=== PATIENT | male | born 1970 | race Caucasian/White ===

== ENCOUNTER → 2021-08-02 15:49 | Outpatient (BNVA) | payer OTHER, SELFPAY | PROVIDERS: Visit Provider Nurse Practitioner Family | DX: Z12.5 Encounter for screening for malignant neoplasm of prostate (principal); R53.83 Other fatigue; Z13.6 Encounter for screening for cardiovascular disorders; G47.10 Hypersomnia, unspecified | CPT/HCPCS: 80053; 80061; 84443; 85025; G0103 ==

== ENCOUNTER → 2021-08-23 16:01 | Outpatient (BNVA) | payer OTHER, SELFPAY | PROVIDERS: PCP Nurse Practitioner Family; Visit Provider Nurse Practitioner Family | DX: R74.8 Abnormal levels of other serum enzymes (principal); M25.561 Pain in right knee; M25.562 Pain in left knee; R42 Dizziness and giddiness | CPT/HCPCS: 80053 ==

== ENCOUNTER 2021-10-25 08:01 | Outpatient (CLI) | payer OTHER, SELFPAY ==
--- NOTE | 2021-10-25 08:18 | XRR_ITS ---
PROCEDURE INFORMATION: Exam: XR Lumbosacral Spine Exam date and time: 10/25/2021 8:35 AM Age: 51 years old Clinical indication: Low back pain; Additional info: M54.50 - low back pain, unspecified TECHNIQUE: Imaging protocol: XR of the lumbosacral spine. Views: 2 or 3 views. Total images: 3 COMPARISON: No relevant prior studies available. FINDINGS: Bones/joints: L4-S1 Facet joint degenerative changes are present. L4-L5 Degenerative spondylolisthesis (grade 1) is seen with disc space height loss and degenerative changes in the facet joints. Disc degeneration is most notable at L5/S1. Soft tissues: Unremarkable. XR/XR lumbar spine 2-3V* [id number] IMPRESSION: Degenerative changes as described above but no acute pathology detected.
--- NOTE | 2021-10-25 08:18 | XRR_ITS ---
PROCEDURE INFORMATION: Exam: XR Right Knee Exam date and time: 10/25/2021 8:35 AM Age: 51 years old Clinical indication: Bilateral; Patient HX: --chronic pain in lower back and both knees; Additional info: M25.561 - pain in right knee TECHNIQUE: Imaging protocol: XR Right knee. Views: 3 views. Total images: 3 COMPARISON: No relevant prior studies available. FINDINGS: Bones/joints: Mild marginal osteophytes are noted. No acute fracture nor subluxation. No osseous erosion nor periosteal reaction. Soft tissues: Normal. XR/XR knee RT 3V* [id number] IMPRESSION: 1. Mild marginal osteophytes are noted. 2. No acute osseous pathology.
--- NOTE | 2021-10-25 08:18 | XRR_ITS ---
PROCEDURE INFORMATION: Exam: XR Left Knee Exam date and time: 10/25/2021 8:35 AM Age: 51 years old Clinical indication: Bilateral; Patient HX: --chronic pain in lower back and both knees; Additional info: M25.561 - pain in right knee TECHNIQUE: Imaging protocol: XR Left knee. Views: 3 views. Total images: 3 COMPARISON: No relevant prior studies available. FINDINGS: Bones/joints: Mild marginal osteophytes are noted. No acute fracture nor subluxation. No osseous erosion nor periosteal reaction. Soft tissues: Normal. XR/XR knee LT 3V* [id number] IMPRESSION: 1. Mild marginal osteophytes are noted. 2. No acute osseous pathology.
== END 2021-10-25 08:02 | disposition home or self-care (01) ==
LOC: RAD 08:05
PROVIDERS: PCP Nurse Practitioner Family; Visit Provider Nurse Practitioner Family
DX: M54.50 Low back pain, unspecified (principal); M25.561 Pain in right knee; M25.562 Pain in left knee; M43.07 Spondylolysis, lumbosacral region; M25.762 Osteophyte, left knee; M25.761 Osteophyte, right knee
CPT/HCPCS: 72100; 73562

== ENCOUNTER 2022-03-06 12:12 | Outpatient (CLI) | payer OTHER, SELFPAY ==
--- NOTE | 2022-03-06 12:45 | USCV_ITS ---
Mariano Lazaro Age: 51 Gender: M : 1970 Exam Date: 03/06/2022 12:30 Ordering Phys: Mitchel Trinidad MD ([email or web address]) Technologist: Jarrell Aaron [place] [facility] [place]: bradycardia, abnormal ekg BP: 142 / 94 HR: 60 Rhythm: Sinus Technical Quality: Adequate MEASUREMENTS (Male / Female) Normal Values 2D ECHO LV Diastolic Diameter PLAX 5.3 cm 4.2 - 5.9 / 3.9 - 5.3 cm LV Systolic Diameter PLAX 3.3 cm IVS Diastolic Thickness 0.9 cm 0.6 - 1.0 / 0.6 - 0.9 cm IVS Systolic Thickness 1.4 cm LVPW Diastolic Thickness 0.8 cm 0.6 - 1.0 / 0.6 - 0.9 cm LVPW Systolic Thickness 2.1 cm LVOT Diameter 2.8 cm LV Ejection Fraction 2D Teich 67.0 % LV Ejection Fraction MOD 2C 62.0 % LV Ejection Fraction 2C AL 62.9 % LA Diameter 3.7 cm LA Width 3.0 cm LA Height 4.8 cm RA Width 3.2 cm RA Height 4.2 cm Aorta at Sinotubular Diameter 3.3 cm M-MODE Aortic Annulus Diameter 3.8 cm LA Ao Ratio MM 1.0 MV E Point Septal Separation 0.5 cm DOPPLER AV Peak Velocity 133.7 cm/s LVOT Peak Velocity 104.0 cm/s AV Area Cont Eq vti 4.7 cm squared AV Area Cont Eq pk 4.7 cm squared MV Peak Velocity 96.0 cm/s MV Area PHT 4.3 cm squared Mitral E to A Ratio 1.5 MV E' Velocity 50.0 cm/s Mitral E to MV E' Ratio 7.2 Mitral E to LV E' Lateral Ratio 7.5 Mitral E to LV E' Septal Ratio 7.0 TR Peak Velocity 211.9 cm/s TR Peak Gradient 18.0 mmHg TR Mean Velocity 180.2 cm/s TR Mean Gradient 13.0 mmHg TR Velocity Time Integral 56.5 cm Right Atrial Pressure 8.0 mmHg Pulmonary Artery Systolic Pressu 26.0 mmHg PV Peak Velocity 105.0 cm/s RV Acceleration Time 0.1 s RV Ejection Time 0.3 s RV AcT/ET 0.5 FINDINGS Left Ventricle Left ventricle is normal in size. LV systolic function is normal with EF 55 to 60%. No regional wall motion abnormalities are seen. Right Ventricle RV is normal in size and function Right Atrium Normal in size Left Atrium Normal in size Mitral Valve Structurally normal mitral valve. Mild mitral regurgitation Aortic Valve Structurally normal aortic valve. Trace aortic regurgitation. Tricuspid Valve Trace tricuspid regurgitation. Insufficient TR jet to calculate RVSP. Pulmonic Valve Not well-visualized. Trace pulmonic regurgitation Pericardium Normal Aorta Mildly dilated ascending aorta IVC CONCLUSIONS LV systolic function is normal with EF of 55 to 60%. Mild mitral regurgitation. Trace aortic regurgitation. Trace tricuspid regurgitation. Trace pulmonic regurgitation. Mildly dilated ascending aorta No comparison studies are available Jonathan Renee MD (Electronically Signed) Final Date: 07 March 2022 10:07 S
== END 2022-03-06 12:13 | disposition home or self-care (01) ==
LOC: RAD 12:13
PROVIDERS: PCP Nurse Practitioner Family; Visit Provider Internal Medicine Cardiovascular Disease
DX: R00.1 Bradycardia, unspecified (principal); R06.00 Dyspnea, unspecified
CPT/HCPCS: 93306

== ENCOUNTER → 2022-03-25 15:54 | Outpatient (BNVA) | payer OTHER, SELFPAY | PROVIDERS: PCP Nurse Practitioner Family; Visit Provider Nurse Practitioner | DX: I10 Essential (primary) hypertension (principal) | CPT/HCPCS: 80053; 80061 ==

== ENCOUNTER 2022-09-19 05:30 | Outpatient (CLI) | payer OTHER, SELFPAY | END 2022-09-19 05:31 | disposition home or self-care (01) | LOC: SLEEP 09-20 05:31 | PROVIDERS: PCP Nurse Practitioner Family; Visit Provider Nurse Practitioner | DX: G47.33 Obstructive sleep apnea (adult) (pediatric) (principal) | CPT/HCPCS: 95811 ==

== ENCOUNTER → 2023-06-09 08:31 | Outpatient (BNVA) | payer OTHER, SELFPAY | PROVIDERS: PCP Nurse Practitioner; Visit Provider Specialist | DX: M25.562 Pain in left knee (principal); M17.12 Unilateral primary osteoarthritis, left knee | CPT/HCPCS: 73560; 73565; 99204 ==

== ENCOUNTER 2023-07-09 08:11 | Outpatient (CLI) | payer OTHER, SELFPAY ==
--- NOTE | 2023-07-09 08:45 | MR_ITS ---
WS: [id number] MRI LEFT KNEE NONCONTRAST TECHNIQUE: Axial PD, coronal PD fat sat, coronal PD, sagittal PD, and sagittal PD fat-sat images obta ined. CLINICAL INFORMATION: left knee pain COMPARISON: None. FINDINGS: Distal quadriceps and patellar tendons are intact. Hypertrophic patella. Moderate suprasellar effusio n. Advanced chondromalacia patella. Advanced tricompartment arthritis LEFT knee with [id number] art iculation in the medial joint compartment. Hypertrophic changes along the joint line. Chronic thinnin g of the medial and lateral meniscus worse medial meniscus. Blunting of the medial meniscus with php programmer forest intrasubstance changes and chronic tear. ACL and PCL are intact. Peripheral extrusion of the medial meniscus. Grade IV chondromalacia medial joint compartment with sl ight subchondral edema. Subcutaneous edema LEFT knee. Normal medial and lateral collateral ligaments. Tiny lobulated popliteal cyst. Popliteal cyst measures 8 mm. IMPRESSION: 1. Advanced tricompartment arthritis worse in the medial joint compartment with subchondral edema. 2. Advanced chondromalacia patella with hypertrophic changes. Moderate suprasellar effusion. 3. Grade IV chondromalacia medial joint compartment. Grade III chondromalacia lateral joint compartm ent. 4. Hudt-sg-kuvl articulation medial joint compartment with peripheral extrusion of the medial menisc us. Chronic thinning of the medial and lateral meniscus. 5. Medial and lateral collateral ligaments appear intact. 6. Tiny 8 mm popliteal cyst. 7. ACL and PCL intact. Outbridge grading: grade IV: full-thickness cartilage loss with underlying bone reactive changes
== END 2023-07-09 08:12 | disposition home or self-care (01) ==
LOC: RAD 08:11
PROVIDERS: PCP Nurse Practitioner; Visit Provider Specialist
DX: M17.12 Unilateral primary osteoarthritis, left knee (principal); M22.42 Chondromalacia patellae, left knee; M25.462 Effusion, left knee; M23.332 Other meniscus derangements, other medial meniscus, left knee; M71.22 Synovial cyst of popliteal space [Baker], left knee
CPT/HCPCS: 73721

== ENCOUNTER → 2023-07-21 09:25 | Outpatient (BNVA) | payer OTHER, SELFPAY | PROVIDERS: PCP Nurse Practitioner; Visit Provider Specialist | DX: M17.12 Unilateral primary osteoarthritis, left knee (principal) | CPT/HCPCS: 20610; 99214; J7325 ==

== ENCOUNTER 2023-07-29 06:00 | Outpatient (RCR) | payer OTHER, SELFPAY | END 2023-08-21 23:59 | disposition home or self-care (01) | LOC: WPT 06:00 | PROVIDERS: Visit Provider Specialist | DX: M17.12 Unilateral primary osteoarthritis, left knee (principal) | CPT/HCPCS: 97110; 97112; 97140; 97161; 97530 ==

== ENCOUNTER 2023-08-22 06:00 | Outpatient (RCR) | payer OTHER, SELFPAY | END 2023-09-21 23:59 | disposition home or self-care (01) | LOC: WPT 06:00 | PROVIDERS: Visit Provider Specialist | DX: M17.12 Unilateral primary osteoarthritis, left knee (principal) | CPT/HCPCS: 97110; 97140; 97530 ==

== ENCOUNTER → 2023-10-15 10:08 | Outpatient (BNVA) | payer OTHER, SELFPAY | PROVIDERS: Visit Provider Specialist | DX: M17.12 Unilateral primary osteoarthritis, left knee (principal) | CPT/HCPCS: 99213 ==

== ENCOUNTER → 2024-01-23 09:43 | Outpatient (BNVA) | payer OTHER, SELFPAY | PROVIDERS: Visit Provider Specialist | DX: M17.12 Unilateral primary osteoarthritis, left knee (principal); Z71.89 Other specified counseling | CPT/HCPCS: 20610; J1100; J2795; J3301; J7325 ==

== ENCOUNTER 2024-07-08 13:52 | Outpatient (CLI) | payer OTHER, SELFPAY ==
--- NOTE | 2024-07-08 14:00 | MR_ITS ---
WS: [id number] MRI NECK WITH AND WITHOUT CONTRAST. COMPARISON: CT 06/29/2024 Multiplanar, multisequence imaging is performed with and without contrast. MultiHance 20 mL. Large soft tissue mass centered in the LEFT tongue base and [place] tonsil extends across the midlin e through the pharyngeal mucosal soft tissue. Mass extends inferiorly along the LEFT supraglottic air way into the vallecula. Mass extends medially to involve the uvula. There is involvement of the LEFT tongue base extending to the midline. Compromise of the oropharyngeal airway. Mass measures 2.6 x 2.8 cm and extends over a length of 3.8 cm. There is bulging of the mass into the oropharynx. Numerous necrotic cystic lymph nodes along the LEFT cervical chain. The largest lymph nodes measure u p to 2.5 cm in diameter. LEFT cervical chain lymph nodes are predominant at level IIA and IIB. A few smaller cervical chain lymph nodes extending more distally into the supraclavicular region. Small rig ht-sided cervical chain lymph nodes but these are not enlarged. Submandibular and parotid glands are negative. MR/MR orbit face neck wo/w* [id number] IMPRESSION: 1. Large neoplastic mass centered in the LEFT [place] tonsil with extension t o the tongue base and into the vallecula. Mass extends through the pharyngeal m ucosa at the tongue base to the uvula. Mass measures 2.6 x 2.8 x 3.8 cm. 2. Numerous necrotic cystic LEFT cervical chain lymph nodes measuring up to 2. 5 cm. Cystic lymphadenopathy is predominantly at level IIA and IIB. 3. Mass effect and narrowing of the oropharynx.
[2024-07-08] MEDS: gadobenate dimeglumine 20 mL vial IV (15:35)
== END 2024-07-08 13:53 | disposition home or self-care (01) ==
LOC: RAD 13:52
PROVIDERS: Visit Provider Specialist
DX: D37.09 Neoplasm of uncertain behavior of other specified sites of the oral cavity (principal); R59.0 Localized enlarged lymph nodes; R93.89 Abnormal findings on diagnostic imaging of other specified body structures
CPT/HCPCS: 70543

== ENCOUNTER 2024-07-16 08:00 | Outpatient (CLI) | payer OTHER, SELFPAY ==
--- NOTE | 2024-07-16 08:11 | PETR_ITS ---
PROCEDURE INFORMATION: Exam: PET/CT Skull Base to Mid-thigh Exam date and time: 07/16/2024 9:00 AM Age: 53 years old Clinical indication: Condition or disease; Primary cancer: Neoplasm of uncertain behavior of sites of the oral cavity; Initial oncological staging assessment; Additional info: Mass bilateral tonsils LABS AND CLINICAL REPORTS: Glucose: 99 mg/dl Treatment strategy for malignancy (PET staging): Initial Staging (PI) TECHNIQUE: Imaging protocol: Following at least four-hour fasting and following the injection of radiopharmaceutical, low dose CT images were obtained. Then, PET images were obtained. Attenuation corrected images were constructed using the CT scan. Fused images of PET and CT were reviewed. The standardized uptake values (SUV) reported below are maximum values within a region of interest, expressed in gm/ml. Exam includes orbital meatal line to mid-thigh. SUV normalization method: BodyWeight Radiopharmaceutical: 11.87 mCi F-18 FDG (Fluorodeoxyglucose), IV. Time of imaging post radiopharmaceutical administration: 45 minutes Injection site: right ac COMPARISON: CT neck w con* [id number] 06/29/2024, MRI neck 07/08/2024 FINDINGS: Brain: Normal physiologic uptake. Pharynx: For primary malignancy noted as about 4.4 x 3.5 cm mass in the left tonsil extending to the left base of tongue with highest uptake of 23.2 SUV. The right tonsil is not enlarged with uptake of 6.8 SUV which may be physiologic rather than malignant. Larynx: No abnormal uptake. Lungs, pleura and trachea: No abnormal uptake. No lung nodules or masses. No pleural effusion. Heart: No abnormal uptake. Mild cardiomegaly.No coronary artery calcification is visualized. There is no pericardial effusion. Mediastinal space: No abnormal uptake. Liver: No abnormal uptake. Maximum uptake is 3.8 SUV. Gallbladder and biliary ducts: No abnormal uptake. No calcified gallstones. Pancreas: No abnormal uptake. Spleen: No abnormal uptake. No splenomegaly. Adrenal glands: No abnormal uptake. No nodules. Kidneys and ureters: Normal physiologic uptake. No hydronephrosis. Stomach and bowel: No abnormal uptake. Vasculature: No abnormal uptake. No aortic aneurysm. Lymph nodes: Centrally photopenic metastatic lymphadenopathy in the left neck in levels 2 and 3 shows peripheral highest uptake of 16.4 SUV. No FDG avid lymphadenopathy in the right neck, chest, abdomen, pelvis, and extremities. Skeleton: No abnormal uptake in the visualized axial and appendicular skeleton. No suspicious lytic or sclerotic bone lesions. Degenerative grade 1 anterolisthesis of L4 associated with L4-L5 facet arthropathy. Soft tissues: No abnormal uptake in the visualized head, neck, chest, abdomen, pelvis, and extremities. PET/PET skull to thigh INIT [id number] IMPRESSION: Primary malignancy in the left tonsil/left base of tongue with the highest uptake of 23.2 SUV. Metastatic lymphadenopathy in the left neck in the levels 2-3 with the highest peripheral uptake of 16.4 SUV. The right tonsil is not particularly enlarged with maximum uptake of 6.8 SUV which may be physiologic for correlation with direct exam. No FDG avid lymphadenopathy in the right neck. No FDG avid findings outside of the neck.
== END 2024-07-16 08:01 | disposition home or self-care (01) ==
PROVIDERS: Visit Provider Nurse Practitioner
DX: R91.1 Solitary pulmonary nodule (principal); R93.0 Abnormal findings on diagnostic imaging of skull and head, not elsewhere classified; R59.0 Localized enlarged lymph nodes; I51.7 Cardiomegaly; R93.7 Abnormal findings on diagnostic imaging of other parts of musculoskeletal system; D37.09 Neoplasm of uncertain behavior of other specified sites of the oral cavity
CPT/HCPCS: 78815; A9552

== ENCOUNTER → 2024-07-28 11:08 | Outpatient (BNVA) | payer OTHER, SELFPAY | PROVIDERS: Visit Provider Surgery | DX: Z95.828 Presence of other vascular implants and grafts (principal) | CPT/HCPCS: 99204 ==

== ENCOUNTER 2024-08-02 08:17 | Day surgery (SDC) | payer OTHER, SELFPAY ==
[2024-08-02] VITALS (14 sets, daily range): BP systolic 83–114; BP diastolic 45–67; PULSE 45–71; RESP 14–19; TEMP 36.6–36.8; O2SAT 93–99; BMI 44.6
--- NOTE | 2024-08-02 08:44 | W.PM.OPSUD ---
Surgery/Procedure H&P Update DATE OF PROCEDURE: August 02, 2024 DATE H&P PERFORMED: 07/28/23 H&P UPDATE INFORMATION: I have reviewed H&P completed within last 30 days, I have examined patient prior to procedure, No changes to prior documentation and H&P is in [facility] EMR on date indicated PLANNED PROCEDURE: Operation Date: 08/02/24 10:00 Proposed Procedures p Portacath Placement 35142, C9.9(Not Applicable) - John Wheeler MD
[2024-08-02] MEDS: sodium chloride 0.9% 1,000 ML 30 ML IV (08:50)
--- NOTE | 2024-08-02 08:58 | P.ANESASSM_ITS ---
Pre-Anesthetic Assessment Height/Weight: Height 5 ft 11 in Weight 320 lb Temp Pulse Resp BP Pulse Ox O2 Del Method 98.3 F 46 L 18 108/67 97 Room Air 08/02/24 08:25 08/02/24 08:25 08/02/24 08:25 08/02/24 08:25 08/02/24 08:25 08/02/24 08:34 Operation Date: 08/02/24 10:00 Proposed Procedures p Portacath Placement 35038, C9.9(Not Applicable) - John Wheeler MD Last intake: Intake Last Liquid Date 08/01/24 Last Liquid Time 19:00 Last Solid Date 08/01/24 Last Solid Time 19:00 Social No alcohol and No tobacco Exam alert, oriented x 3, clear to auscultation bilaterally and regular rate & rhythm Airway Submandibular: within normal limits Cervical ROM: within normal limits Mallampati: Class II Dentition: full Comments: Comments: multiple missing teeth, denies any loose Anesthetic Plan ASA status: 3 Anesthesia: MAC Other: No prior issues with anesthesia NPO since yesterday BMI 44.6 Patient has a tonsillar/base of the tongue mass measuring 4.4 x 3.5 cm. denies any breathing issues. States he is able to swallow ok but can feel the mass History of hypertension on amlodipine, chlorthalidone and losartan Previous echo showing EF 55 to 60% Prior EKG showing sinus rhythm plan for Mac anesthetic Medications/Allergies Home Medications ?Medication ?Instructions ?Recorded ?Confirmed ?Last Taken ?Type meclizine 25 mg tablet 25 mg PO TID PRN dizziness # 90 tabs 08/23/21 08/02/24 6 Months Ago Rx ~01/31/24 cpap auto titrating machine #1 ea 09/07/21 07/28/24 Un known Rx amlodipine 5 mg tablet 5 mg PO DAILY #30 tabs 02/0607/29/24 08/01/24 Rx chlorthalidone 25 mg tablet 25 mg PO DAILY 30 days #30 tabs 02/06/22 07/29/24 08/01/24 Rx potassium chloride 8 mEq 8 meq PO DAILY 30 days #30 c aps 02/06/22 07/29/24 08/01/24 Rx capsule,extended release losartan 100 mg tablet 100 mg PO DAILY #90 tabs 08/02/2425 06:00 Rx cholecalciferol (vitamin D3) 50 50 mcg PO DAILY Vitami n D 07/27/24 07/29/24 08/01/24 History mcg (2,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 duloxetine 20 mg capsule,delayed 20 mg PO DAILY Depres aziza 07/27/24 07/29/24 08/01/24 History release sprinkle fluticasone propionate 50 50 mcg intranasal DAILY [employer] 07/27/24 08/02/24 08/02/24 06:00 History mcg/actuation nasal Rinitis spray,suspension lorazepam 1 mg tablet 0.5 - 1 mg (0.5 - 1 x 1 mg) PO Q6H 07/28/24 07/29/24 08/01/24 Rx PRN severe nausea #30 tabs prochlorperazine maleate 10 mg 10 mg PO Q4H PRN mild n ausea #30 07/28/24 07/29/24 Unknown Rx tablet (Compazine) tabs Allergies Allergy/AdvReac Type Severity Reaction Status Date / Time No Known Allergies Allergy Verified 07/28/24 11:03 Current Medications Generic Name Dose Route Start Last Admin Trade Name Freq PRN Reason Stop Dose Admin Sodium Chloride 1,000 mls @ 30 mls/hr 08/02/24 08:45 08/02/24 08:50 Sodium Chloride 0.9% IV 08/03/24 08:44 30 mls/hr .Q24H MARTINEZ Administration PFSH Anesthesia Medical History Morbid obesity Benign essential HTN Severe sleep apnea Surgical History Hx of appendectomy Family History Father Hypertension Denies family history of Diabetes CAD (coronary artery disease) Clotting disorder Dementia Chronic kidney disease (CKD) Suicide Anesthesia complication Bleeding disorder Lung disease Cancer Stroke Social History Smoking and tobacco/nicotine status: never used tobacco/nicotine Second hand smoke exposure: No Alcohol intake: never Substance/Drug Use: never Adopted: No Caregiver/support person: No Lives independently: Yes Household members: spouse Housing: House Marital status: Number of children: 3 Highest education level completed: High School Graduate service: Yes branch: [employer] Anesthesia Cardiac Studies: Echocardiogram 03/06/22 Cardiac Event Monitor 11/07/21
--- NOTE | 2024-08-02 10:10 | SC_ITS ---
WS: [id number] C-ARM RADIOGRAPHS CHEST; 2 IMAGES HISTORY: PORTACATH COMPARISON: None available. Intraoperative imaging during Port-A-Cath placement. Port-A-Cath overlies the RIGHT upper thorax with tip in the mid SVC. SC/C-arm FL for CVA [id number] IMPRESSION: Intraoperative imaging during Port-A-Cath placement.
[2024-08-02] MEDS: ceFAZolin 3,000 MG in sodium chloride 0.9% (100 ml) 100 ML 200 MG IV (10:25)
[2024-08-02] MEDS: lidocaine-epi 1% PF 1:200,000 30 mL SDV INJECTION (10:34)
[2024-08-02] MEDS: heparin, porcine 1,000 unit/mL INJ 10 mL 10000 UNIT INJECTION (10:48)
--- NOTE | 2024-08-02 10:58 | PM.OP ---
Operative Report Date of procedure: August 02, 2024 Pre-op diagnosis: Tonsillar cancer Post-op diagnosis: Same Post-op findings: Normal neck anatomy Procedure done: Insertion of right IJ Port-A-Cath Implants: Bard Port-A-Cath Specimens removed/disposition: none Surgeon: John Wheeler MD [employer] Project Manager: CHAD OR Staff Estimated blood loss: 5 Complications: none Brief History: This is a 53-year-old male who presented to my office for evaluation for Port-A-Cath placement. Patient has been diagnosed of squamous cell carcinoma of the left tonsil and is due for therapy. After discussion of all recent benefits documented my preop note we decided to proceed Procedure: Patient was brought into the OR, he was placed in a supine position, mother anesthesia sedation was given. Timeout was conducted after the skin was prepped and draped in the usual sterile fashion. I then proceeded to identify the right IJ vein with ultrasound, I infiltrated local anesthesia on top of the vein. I then proceeded to cannulate the vein under direct ultrasound guidance using an 18-gauge needle, the needle tip was seen entering the vein and immediate return of blood was noted. A wire was advanced through the needle and the needle was removed. The position of the wire was verified with ultrasound and fluoroscopy. The wire was then fixed to the drapes. I then placed my attention to the chest, local anesthesia was infiltrated in the previously marked area on the chest and then a tract connecting the chest to the wire insertion site in the neck. I then proceeded to make a 3.5 cm incision in the right upper chest, the incision was deepened to subcutaneous tissue with electrocautery and electrocautery was used to create the subcutaneous pocket to house the Port-A-Cath. I then proceeded to use a hemostat to create a tunnel from the chest wound to the neck. I then proceeded to make a 0.5 cm incision at the level of the wire insertion site in the neck. Hemostasis was verified. I then placed the Port-A-Cath in the pocket and tunneled the catheter using the provided tunneler. The catheter was cut to appropriate length under fluoroscopy guidance and then flushed. I then proceeded to insert an introducer with a peel-off sheath over the wire under direct fluoroscopic guidance. I then remove the wire and the introducer leaving the peel-off sheath in place. The catheter was then advanced through the peel-off sheath and the peel-off sheath was removed leaving the catheter in place. Fluoroscopy showed evidence of Adequate catheter position. I then proceeded to access the port; the port was retrieving blood and flushing fine, I then hep-locked the catheter. Hemostasis was verified. The wound was closed in layers using #3-0 Vicryl for the subcutaneous tissue and #4 Monocryl for the skin. Dermabond was applied. At the end of the procedure all counts were correct. The patient tolerated well the procedure and was transferred to the PACU in stable condition.
--- NOTE | 2024-08-02 11:58 | SUR.PHASEI ---
Notified anesthesia of pt's Phase 1 hypotension, pt denied dizziness etc. DIANA Chavez administered epinepherine 5mg IV. Medication therapeutic, see documented vitals.
--- NOTE | 2024-08-02 12:29 | ANE.PACU2 ---
Inpatient post-anesthesia follow up: Airway intact: Yes Vital signs: Temperature 98.1 F Pulse Rate 71 Respiratory Rate 16 Blood Pressure 110/64 Pulse Oximetry 98 Oxygen Delivery Me thod Room Air Oxygen Flow Rate Fraction of Inspir ed Oxygen Hydration adequate: Yes Nausea and vomiting: No Pain level: 1 Mental status: Baseline
== END 2024-08-02 12:29 | disposition home or self-care (01) ==
PROVIDERS: PCP Nurse Practitioner; Visit Provider Surgery
PROC: (CPT 36561; principal; 2024-08-02 09:50)
DX: C09.9 Malignant neoplasm of tonsil, unspecified (principal); I10 Essential (primary) hypertension; E66.01 Morbid (severe) obesity due to excess calories; Z68.41 Body mass index [BMI] 40.0-44.9, adult
CPT/HCPCS: 36561; 77001; C1788; J0690; J1644; J2250; J2704; J3010; J7030

== ENCOUNTER 2024-08-10 08:30 | Oncology outpatient (recurring) (ONCR) | payer OTHER, SELFPAY ==
--- NOTE | 2024-07-29 14:05 | N.ONRAD NP_ITS ---
Radiation Oncology New Patient Visit Patient: Mariano Lazaro MR#: [id number] : 1970> Age: 53> Sex: Male> Dictated by: Dr. 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 Chief Complaint / History of Present Illness: Patient says that he actually noticed some neck nodes in the left side of his neck at [facility]. He also began to have a lump in his throat when he swallowed. He said it was never sore. He had a biopsy done on July 13, 2024 which showed a grade 3 squamous cell carcinoma.. He had a PET scan which showed a 4.4 x 3.5 cm mass in the left tonsil and left base of tongue with an SUV of 23.2. He also had 2 lymph nodes at level 2 and 3 with SUV of 16.4. He has previously met with Dr. Yan to discuss combined modality therapy. He is here today to discuss the radiation portion of his treatment. Current Medications: amlodipine 5 mg PO DAILY chlorthalidone 25 mg PO DAILY 30 days cholecalciferol (vitamin D3) 50 mcg PO DAILY [cpap auto titrating machine as directed cpap machine auto titration 5-20 with supplies] duloxetine 20 mg PO DAILY fluticasone propionate 50 mcg/actuation intranasal losartan 100 mg PO DAILY meclizine 25 mg PO TID PRN potassium chloride ER 8 mEq PO DAILY 30 days Allergies: No Known Allergies Medical History: Morbid obesity Benign essential HTN Severe sleep apnea Surgical History: Hx of appendectomy Family History: Father Hypertension Denies family history of Diabetes CAD (coronary artery disease) Clotting disorder Dementia Chronic kidney disease (CKD) Suicide Anesthesia complication Bleeding disorder Lung disease Cancer Stroke Social History: Smoking and tobacco/nicotine status: never used tobacco/nicotine Second hand smoke exposure: No Alcohol intake: never Substance/Drug Use: never Adopted: No Caregiver/support person: No Lives independently: Yes Household members: spouse Housing: House Marital status: Number of children: 3 Highest education level completed: High School Graduate service: Yes branch: [employer] Dietary Habits Caffeine: Yes Caffeine intake frequency: carbonated beverages Current Complaints / Review of Systems: . Vital Signs: Performed on 07/29/2024 1:45 PM BMI - 45.105 kg/m2 (high), Height - 71 in, Weight - 323.4 lbs, Temperature - 97 f, Pulse - 48 /min (low), Respiration - 18 /min, O2 Sat - 96 %, Pain - 0, Fatigue - 0 and BP - 110/ 68 mm(hg). Physical Exam: General: Patient is in no apparent distress. HEENT: Normocephalic atraumatic. Pupils are equal, sclera clear, extraocular muscles intact. Oral cavity reveals his dentition to be intact and in good health. His oral cavity is moist without obvious lesions. His neck is supple without palpable adenopathy at the left angle of his jaw. These are approximately one by one and half centimeters in size. Pulmonary: Respiratory rate is regular nonlabored Cardiovascular: Regular rate and rhythm Abdomen: Moderately protuberant and android pattern Extremities: Without obvious edema or lymphedema in the upper extremities Neurological: Alert and orient x 3. Gait and speech within normal limits Psych: Affect appropriate for current situation Performance Status: 100 Pathology: Impression: Stage IIIb squamous of carcinoma of the tonsil/base of tongue Plan: I reviewed with the patient his pathology. We talked about the findings on his PET scan. We discussed the combined modality therapy with cisplatin every 3 weeks along with daily radiation. We discussed the simulation process. We reviewed the risks and side effects both acute and long-term. This point he is agreed to proceed with treatment. He is scheduled for port on Friday and we will see if we can coordinate with that appointment for the simulation. We talked about a 7-week course of treatment and [facility] his daily mileage for gas funds. This point we will get him simulated soon as possible next week so that we will be ready to start his treatments next week as well. He is going to a dentist today. Signed by: 07/29/2024 2:03:46 PM <<Signature on File>> Time spent on patient: 45 CPT Code: * CPT Code: *
[2024-08-04 08:13] LABS: Basophils # 0.1 10^3/uL (0.0-0.1); Basophils % 1.5 %; Eosinophils # 0.2 10^3/uL (0.0-0.8); Eosinophils % 3.2 %; Hematocrit 42.4 % (37-53); Lymphocytes # 1.4 10^3/uL (0.8-4.8); Lymphocytes % 25.4 %; Mean Corpuscular HGB Conc 33.5 g/dL (30-55); Mean Corpuscular Hemoglobin 30.1 pg (27-33); Mean Platelet Volume 9.8 fL (7.4-10.4); Monocytes # 0.6 10^3/uL (0.2-0.9); Monocytes % 10.8 %; Neutrophils # 3.16 10^3/uL (1.8-7.7); Neutrophils % 58.5 %; Nucleated Red Blood Cells % 0 %; Platelet Count 261 10^3/cmm (157-399); Red Blood Count 4.71 10^6/uL (3.85-5.65); Red Cell Distribution Width 12.7 % (12.1-15.1); White Blood Count 5.39 10^3/uL (3.29-11.43)
[2024-08-04 08:22] LABS: Alanine Aminotransferase 15 U/L (0-41); Albumin Level 3.9 g/dL (3.5-5.2); Alkaline Phosphatase 66 U/L (40-130); Anion Gap 14.3 (5-19); Aspartate Amino Transferase 16 U/L (0-40); Blood Urea Nitrogen 13 mg/dL (6-20); Calcium 9.1 mg/dL (8.5-10.5); Carbon Dioxide 28 mmol/L (22-29); Chloride 98 mmol/L (98-107); Creatinine Clr Calc Pharmacy 124.6145; Globulin 2.9 g/dL (1.3-4.6); Glomerular Filtration Rate 77.9 mL/min (90-130); Glucose 161 mg/dL (65-115); Osmolality Calculated 288 mOsm/kg (285-295); Potassium 3.3 mmol/L (3.5-5.1); Sodium 137 mmol/L (136-145); Total Bilirubin 0.2 mg/dL (0.15-1.2); Total Protein 6.8 g/dL (6.6-8.7)
[2024-08-04] MEDS: sodium chlor 0.9% + KCl 20 mEq 20 MEQ/1,000 ML BAG 500 MEQ IV (10:25)
[2024-08-04] MEDS: magnesium sulfate premix 2 GM/50 ML PIGGYBACK IV (10:39)
[2024-08-04] MEDS: acetaminophen 325 mg Tablet 650 MG PO (12:52)
[2024-08-04] MEDS: sodium chloride 0.9% 250 ML 75 ML IV (12:52)
[2024-08-04] MEDS: OLANZapine 5 mg TABLET PO (12:53)
[2024-08-04] MEDS: aprepitant 130 mg/18 ml SDV IVP (12:57)
[2024-08-04] MEDS: palonosetron 0.25 mg/5 mL SDV IVP (13:06)
[2024-08-04] MEDS: dexamethasone 4 mg/mL INJ 5 mL 12 MG IVP (13:10)
[2024-08-04] MEDS: famotidine 20 mg/2 mL INJ IVP (13:12)
[2024-08-04] MEDS: diphenhydrAMINE 50 mg/mL SDV 1mL 25 MG IVP (13:15)
[2024-08-04] MEDS: [UNRECOGNIZED DRUG - REMARK] 379 MG IV (13:54)
[2024-08-04] MEDS: FUROsemide 10 mg/mL SDV 2mL 20 MG IVP (16:25)
[2024-08-04] MEDS: potassium chloride 20 MEQ in sodium chloride 0.9% 500 ML 500 MEQ IV (16:34)
[2024-08-04 17:47] VITALS: BP 96/74; PULSE 64; RESP 18; TEMP 36.6; O2SAT 97
[2024-08-10 08:41] LABS: Basophils % 0.5 %; Eosinophils # 0.1 10^3/uL (0.0-0.8); Hematocrit 40.4 % (37-53); Lymphocytes % 16.6 %; Mean Corpuscular HGB Conc 33.4 g/dL (30-55); Mean Corpuscular Hemoglobin 29.6 pg (27-33); Mean Corpuscular Volume 88.6 fl (82-101); Mean Platelet Volume 9.9 fL (7.4-10.4); Monocytes # 0.8 10^3/uL (0.2-0.9); Monocytes % 13.1 %; Neutrophils # 4.28 10^3/uL (1.8-7.7); Neutrophils % 68.5 %; Nucleated Red Blood Cells % 0 %; Platelet Count 202 10^3/cmm (157-399); Red Blood Count 4.56 10^6/uL (3.85-5.65); Red Cell Distribution Width 12.3 % (12.1-15.1); White Blood Count 6.25 10^3/uL (3.29-11.43)
[2024-08-10 08:45] LABS: Albumin Level 3.6 g/dL (3.5-5.2); Alkaline Phosphatase 69 U/L (40-130); Anion Gap 16.8 (5-19); Aspartate Amino Transferase 13 U/L (0-40); Blood Urea Nitrogen 51 mg/dL (6-20); Calcium 8.1 mg/dL (8.5-10.5); Carbon Dioxide 29 mmol/L (22-29); Chloride 95 mmol/L (98-107); Creatinine Clr Calc Pharmacy 46.1535; Globulin 2.8 g/dL (1.3-4.6); Glomerular Filtration Rate 24.7 mL/min (90-130); Glucose 117 mg/dL (65-115); Magnesium 1.9 mg/dL (1.7-2.3); Osmolality Calculated 299 mOsm/kg (285-295); Potassium 3.8 mmol/L (3.5-5.1); Sodium 137 mmol/L (136-145); Total Bilirubin 0.4 mg/dL (0.15-1.2); Total Protein 6.4 g/dL (6.6-8.7)
--- NOTE | 2024-08-10 08:57 | ONCRAD TMN_ITS ---
Radiation Oncology Weekly Treatment Management Patient: Tejas Quintana> MR#: [id number] : 1970> Attending Physician: Dr. 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 ID: [id number], Energy: 6X, Dose/Fx (cGy): 200, #Fx: 5 / 35, Dose Correction (cGy): 0, Total Dose Delivered (cGy): 1,000, Start Date: 08/04/2024, Elapsed Days: 6 Reason for visit: The patient is being seen today as part of their regularly scheduled weekly on treatment visits to assess for acute toxicities from radiotherapy. Review of Systems: Patient has some problems with his blood pressure with his first chemotherapy. 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 Vital Signs: Performed on 08/10/2024 8:28 AM BMI - 45.356 kg/m2 (high), Height - 71 in, Weight - 325.2 lbs, Temperature - 97.3 f, Pulse - 51 /min (low), Respiration - 16 /min, O2 Sat - 96 %, Pain - 2, Fatigue - 0 and BP - 119/ 75 mm(hg). Physical Exam: No changes on exam Imaging: Radiation therapy imaging related to accurate target localization (i.e. KV, MV and CBCT) was reviewed. Appropriate changes, if any, were made to ensure treatment accuracy. Plan: Will continue with his treatments as planned. I did ask him to let the medical oncology side know before his next chemotherapy about his problems with his blood pressure which have currently resolved and the intermittent neuropathy. Signed by: Dr. Tonja Huertas 08/10/2024 8:56:25 AM
[2024-08-10 09:08] LABS: Alanine Aminotransferase 21 U/L (0-41)
[2024-08-10] MEDS: sodium chloride 0.9% 1,000 ML 999 ML IV (10:29)
[2024-08-10 11:38] VITALS: BP 118/71; PULSE 47; RESP 18; TEMP 36.4; O2SAT 96
== END 2024-08-10 23:59 | disposition home or self-care (01) ==
PROVIDERS: Internal Medicine Medical Oncology; Nurse Practitioner; Visit Provider Radiology Radiation Oncology
DX: Z53.9 Procedure and treatment not carried out, unspecified reason (principal); Z51.0 Encounter for antineoplastic radiation therapy; C09.0 Malignant neoplasm of tonsillar fossa; C01 Malignant neoplasm of base of tongue; C77.0 Secondary and unspecified malignant neoplasm of lymph nodes of head, face and neck; Z79.899 Other long term (current) drug therapy
CPT/HCPCS: 36591; 77300; 77301; 77334; 77338; 77386; 77470; 80053; 83735; 85025; 96360; 96361; 96367; 96375; 96413; 96415; 99024; 99205; 99214; 99215; J0185; J1100; J1200; J1940; J2469; J3475; J3480; J3490; J7030; J7040; J7050; J9060

== ENCOUNTER 2024-08-12 10:45 | Outpatient (CLI) | payer OTHER, SELFPAY ==
--- NOTE | 2024-08-12 11:00 | USCV_ITS ---
Mariano Lazaro Age: 53 Gender: M : 1970 Exam Date: 08/12/2024 11:01 Ordering Phys: Nayeli Shrestha NP Technologist: Jarrell Aaron [place]am [place] [facility] [place]: lower extremity edema PROCEDURES: Venous duplex imaging was performed in only the right lower extremity. The following venous structures were evaluated: common femoral vein, profunda vein, proximal portion of the greater saphenous vein, superficial femoral vein, and the popliteal vein. In addition, the posterior tibial and peroneal trunk were evaluated. Serial compression, augmentation maneuvers, and spectral Doppler flow evaluation were performed. FINDINGS: Normal 2-D Doppler and augmentation and compressibility throughout the lower extremity venous structures. Additional imaging through the proximal calf veins also reveals no thrombus. Limited evaluation of the greater saphenous vein is patent with no thrombus. CONCLUSIONS No DVT right lower extremity. Dr. Leda Benitez DO (Electronically Signed) Final Date: 12 August 2024 11:34 S
== END 2024-08-12 10:46 | disposition home or self-care (01) ==
PROVIDERS: Visit Provider Nurse Practitioner
DX: Z09 Encounter for follow-up examination after completed treatment for conditions other than malignant neoplasm (principal); C09.9 Malignant neoplasm of tonsil, unspecified
CPT/HCPCS: 93971

== ENCOUNTER → 2024-08-17 09:08 | Outpatient (BNVA) | payer OTHER, SELFPAY | PROVIDERS: PCP Nurse Practitioner; Visit Provider Surgery | DX: E66.01 Morbid (severe) obesity due to excess calories (principal); Z68.42 Body mass index [BMI] 45.0-49.9, adult; Z98.890 Other specified postprocedural states; Z90.49 Acquired absence of other specified parts of digestive tract; Z95.828 Presence of other vascular implants and grafts | CPT/HCPCS: 99213 ==

== ENCOUNTER 2024-08-20 08:40 | Oncology outpatient (recurring) (ONCR) | payer OTHER, SELFPAY ==
[2024-08-12] MEDS: sodium chloride 0.9% 1,000 ML 999 ML IV (11:52)
[2024-08-12] MEDS: dexamethasone 4 mg/mL INJ 5 mL 12 MG IV (11:55)
[2024-08-12] MEDS: famotidine 20 mg/2 mL INJ IVP (11:59)
[2024-08-12] MEDS: ondansetron 2 mg/ML SDV 2 mL 8 MG IVP (12:02)
[2024-08-12 12:27] LABS: Anion Gap 13.2 (5-19); Blood Urea Nitrogen 37 mg/dL (6-20); Calcium 8.5 mg/dL (8.5-10.5); Carbon Dioxide 29 mmol/L (22-29); Chloride 96 mmol/L (98-107); Glomerular Filtration Rate 39.5 mL/min (90-130); Glucose 103 mg/dL (65-115); Osmolality Calculated 289 mOsm/kg (285-295); Potassium 3.2 mmol/L (3.5-5.1); Sodium 135 mmol/L (136-145); Uric Acid 9.6 mg/dL (3.4-7.0)
[2024-08-13 10:27] VITALS: BP 142/78; PULSE 50; RESP 18; TEMP 36.2; O2SAT 98
[2024-08-13] MEDS: sodium chloride 0.9% 1,000 ML 999 ML IV (10:42)
[2024-08-16 08:30] VITALS: BP 124/72; PULSE 68; RESP 17; TEMP 36.6; O2SAT 97
[2024-08-16] MEDS: sodium chloride 0.9% 1,000 ML 999 ML IV (08:35)
[2024-08-16 09:40] VITALS: BP 112/68; PULSE 64; RESP 17; TEMP 36.6; O2SAT 98
--- NOTE | 2024-08-17 10:42 | ONCRAD TMN_ITS ---
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 ID: [id number], Energy: 6X, Dose/Fx (cGy): 200, #Fx: , Dose Correction (cGy): 0, Total Dose Delivered (cGy): 1,800, Start Date: 08/04/2024, Elapsed Days: 13 Reason for visit: The patient is being seen today as part of their regularly scheduled weekly on treatment visits to assess for acute toxicities from radiotherapy. Patient had 9 of 35 fractions. He denies any significant change in tumor size or difficulty swallowing. He has lost 4 pounds since last visit. Review of Systems: Unchanged Vital Signs: Performed on 08/17/2024 10:33 AM BMI - 44.52 kg/m2 (high), Height - 71 in, Weight - 319.2 lbs, Temperature - 97.8 f, Pulse - 50 /min (low), Respiration - 17 /min, O2 Sat - 97 %, Pain - 0, Fatigue - 0 and BP - 119/ 76 mm(hg). Physical Exam: Alert and oriented and answers questions appropriately. Oral cavity exam showed no mucosal changes. Imaging: Radiation therapy imaging related to accurate target localization (i.e. KV, MV and CBCT) was reviewed. Appropriate changes, if any, were made to ensure treatment accuracy. Plan: Continue XRT. Signed by: Keshawn Rock 08/17/2024 10:40:53 AM
[2024-08-17] MEDS: sodium chloride 0.9% 1,000 ML 999 ML IV (11:05)
[2024-08-17 11:47] LABS: Basophils % 0.8 %; Eosinophils # 0.1 10^3/uL (0.0-0.8); Eosinophils % 2.2 %; Hematocrit 32.6 % (37-53); Lymphocytes # 0.7 10^3/uL (0.8-4.8); Lymphocytes % 13.2 %; Mean Corpuscular HGB Conc 33.4 g/dL (30-55); Mean Corpuscular Hemoglobin 30.4 pg (27-33); Mean Corpuscular Volume 90.8 fl (82-101); Mean Platelet Volume 9.5 fL (7.4-10.4); Monocytes # 0.4 10^3/uL (0.2-0.9); Monocytes % 8.8 %; Neutrophils # 3.75 10^3/uL (1.8-7.7); Neutrophils % 74.8 %; Nucleated Red Blood Cells % 0 %; Platelet Count 210 10^3/cmm (157-399); Red Blood Count 3.59 10^6/uL (3.85-5.65); Red Cell Distribution Width 12.3 % (12.1-15.1); White Blood Count 5.01 10^3/uL (3.29-11.43)
[2024-08-17 11:54] LABS: Alanine Aminotransferase 11 U/L (0-41); Albumin Level 3.3 g/dL (3.5-5.2); Alkaline Phosphatase 67 U/L (40-130); Anion Gap 13.6 (5-19); Aspartate Amino Transferase 8 U/L (0-40); Blood Urea Nitrogen 23 mg/dL (6-20); Calcium 8.2 mg/dL (8.5-10.5); Carbon Dioxide 25 mmol/L (22-29); Chloride 101 mmol/L (98-107); Creatinine Clr Calc Pharmacy 89.4748; Globulin 2.9 g/dL (1.3-4.6); Glomerular Filtration Rate 52.8 mL/min (90-130); Glucose 114 mg/dL (65-115); Osmolality Calculated 287 mOsm/kg (285-295); Potassium 3.6 mmol/L (3.5-5.1); Sodium 136 mmol/L (136-145); Total Bilirubin 0.4 mg/dL (0.15-1.2); Total Protein 6.2 g/dL (6.6-8.7); Uric Acid 5.3 mg/dL (3.4-7.0)
[2024-08-18] MEDS: famotidine 20 mg/2 mL INJ IVP (11:08)
[2024-08-18] MEDS: sodium chloride 0.9% 1,000 ML 999 ML IV (11:08)
[2024-08-18 13:05] VITALS: BP 110/67; PULSE 78; RESP 18; TEMP 36.8; O2SAT 98
[2024-08-19 08:44] LABS: Basophils % 0.3 %; Eosinophils # 0.1 10^3/uL (0.0-0.8); Eosinophils % 2.4 %; Hematocrit 32.6 % (37-53); Lymphocytes # 0.5 10^3/uL (0.8-4.8); Lymphocytes % 15.2 %; Mean Corpuscular HGB Conc 33.7 g/dL (30-55); Mean Corpuscular Hemoglobin 30.2 pg (27-33); Mean Corpuscular Volume 89.6 fl (82-101); Mean Platelet Volume 8.9 fL (7.4-10.4); Monocytes # 0.4 10^3/uL (0.2-0.9); Monocytes % 10.6 %; Neutrophils # 2.36 10^3/uL (1.8-7.7); Neutrophils % 71.5 %; Nucleated Red Blood Cells % 0 %; Platelet Count 261 10^3/cmm (157-399); Red Blood Count 3.64 10^6/uL (3.85-5.65); Red Cell Distribution Width 12.2 % (12.1-15.1)
[2024-08-19 09:00] LABS: Alanine Aminotransferase 9 U/L (0-41); Albumin Level 3.5 g/dL (3.5-5.2); Alkaline Phosphatase 70 U/L (40-130); Anion Gap 13.4 (5-19); Aspartate Amino Transferase 8 U/L (0-40); Blood Urea Nitrogen 24 mg/dL (6-20); Calcium 8.6 mg/dL (8.5-10.5); Carbon Dioxide 25 mmol/L (22-29); Chloride 101 mmol/L (98-107); Creatinine Clr Calc Pharmacy 83.5098; Glomerular Filtration Rate 48.8 mL/min (90-130); Glucose 124 mg/dL (65-115); Osmolality Calculated 287 mOsm/kg (285-295); Potassium 3.4 mmol/L (3.5-5.1); Sodium 136 mmol/L (136-145); Total Bilirubin 0.3 mg/dL (0.15-1.2); Total Protein 6.5 g/dL (6.6-8.7)
[2024-08-19] MEDS: sodium chloride 0.9% 1,000 ML 999 ML IV (10:55)
[2024-08-20] MEDS: sodium chloride 0.9% 500 ML 999 ML IV (09:17)
[2024-08-20 10:24] VITALS: BP 125/74; PULSE 47; RESP 17; TEMP 36.5; O2SAT 98
== END 2024-08-20 23:59 | disposition home or self-care (01) ==
PROVIDERS: Nurse Practitioner; Visit Provider Radiology Radiation Oncology
DX: Z51.0 Encounter for antineoplastic radiation therapy (principal); C01 Malignant neoplasm of base of tongue; C09.9 Malignant neoplasm of tonsil, unspecified; C77.0 Secondary and unspecified malignant neoplasm of lymph nodes of head, face and neck; Z79.899 Other long term (current) drug therapy
CPT/HCPCS: 77336; 77386; 80048; 80053; 84550; 85025; 96360; 96365; 96367; 96375; 99024; 99214; J1100; J2405; J2783; J3490; J7030; J7040

== ENCOUNTER 2024-09-07 07:51 | Oncology outpatient (recurring) (ONCR) | payer OTHER, SELFPAY ==
[2024-08-23] MEDS: sodium chloride 0.9% 1,000 ML 999 ML IV (10:42)
[2024-08-23 11:49] VITALS: BP 120/77; PULSE 53; RESP 18; TEMP 36.7; O2SAT 98
[2024-08-24 08:14] LABS: Basophils % 1.1 %; Eosinophils # 0.1 10^3/uL (0.0-0.8); Hematocrit 35.9 % (37-53); Lymphocytes # 0.5 10^3/uL (0.8-4.8); Lymphocytes % 18.7 %; Mean Corpuscular HGB Conc 33.4 g/dL (30-55); Mean Corpuscular Hemoglobin 30.5 pg (27-33); Mean Corpuscular Volume 91.3 fl (82-101); Mean Platelet Volume 8.5 fL (7.4-10.4); Monocytes # 0.5 10^3/uL (0.2-0.9); Monocytes % 16.8 %; Neutrophils # 1.61 10^3/uL (1.8-7.7); Nucleated Red Blood Cells % 0 %; Platelet Count 277 10^3/cmm (157-399); Red Blood Count 3.93 10^6/uL (3.85-5.65); Red Cell Distribution Width 12.2 % (12.1-15.1); White Blood Count 2.68 10^3/uL (3.29-11.43)
[2024-08-24 08:32] LABS: Alanine Aminotransferase 11 U/L (0-41); Albumin Level 3.9 g/dL (3.5-5.2); Alkaline Phosphatase 82 U/L (40-130); Anion Gap 14.6 (5-19); Aspartate Amino Transferase 11 U/L (0-40); Blood Urea Nitrogen 21 mg/dL (6-20); Calcium 8.9 mg/dL (8.5-10.5); Carbon Dioxide 24 mmol/L (22-29); Chloride 102 mmol/L (98-107); Globulin 2.8 g/dL (1.3-4.6); Glomerular Filtration Rate 48.8 mL/min (90-130); Glucose 106 mg/dL (65-115); Osmolality Calculated 287 mOsm/kg (285-295); Potassium 3.6 mmol/L (3.5-5.1); Sodium 137 mmol/L (136-145); Total Bilirubin 0.3 mg/dL (0.15-1.2); Total Protein 6.7 g/dL (6.6-8.7)
--- NOTE | 2024-08-24 09:38 | ONCRAD TMN_ITS ---
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 ID: [id number], Energy: 6X, Dose/Fx (cGy): 200, #Fx: 14 / 35, Dose Correction (cGy): 0, Total Dose Delivered (cGy): 2,800, Start Date: 08/04/2024, Elapsed Days: 20 Reason for visit: The patient is being seen today as part of their regularly scheduled weekly on treatment visits to assess for acute toxicities from radiotherapy. Review of Systems: Labs adequate for treatment. Patient had significant mucositis that was treated with nystatin swish and swallow starting yesterday. He is able to eat better. Vital Signs: Performed on 08/24/2024 8:24 AM BMI - 43.655 kg/m2 (high), Height - 71 in, Weight - 313 lbs, Temperature - 98.7 f, Pulse - 63 /min, Respiration - 17 /min, O2 Sat - 97 %, Pain - 2, Fatigue - 0 and BP - 118/ 70 mm(hg). Physical Exam: Alert and oriented and answers questions appropriately. Confluent mucositis improving with nystatin swish and swallow Imaging: Radiation therapy imaging related to accurate target localization (i.e. KV, MV and CBCT) was reviewed. Appropriate changes, if any, were made to ensure treatment accuracy. Plan: Continue XRT Continue with nystatin swish and swallow Signed by: Keshawn Rock 08/24/2024 9:37:09 AM
[2024-08-24] MEDS: sodium chloride 0.9% 1,000 ML 999 ML IV (09:42)
[2024-08-25] MEDS: sodium chloride 0.9% 1,000 ML 999 ML IV (09:54)
[2024-08-25 11:20] VITALS: BP 127/76; PULSE 45; RESP 18; TEMP 36.7; O2SAT 96
[2024-08-26] MEDS: sodium chloride 0.9% 1,000 ML 999 ML IV (10:53)
[2024-08-27] MEDS: sodium chloride 0.9% 1,000 ML 999 ML IV (08:46)
[2024-08-31] MEDS: sodium chloride 0.9% 1,000 ML 999 ML IV (10:34)
[2024-08-31] MEDS: ondansetron 2 mg/ML SDV 2 mL 8 MG IVP (10:35)
--- NOTE | 2024-08-31 10:58 | ONCRAD TMN_ITS ---
Radiation Oncology Weekly Treatment Management Patient: Mariano Lazaro MR#: [id number] : 1970 Attending Physician: Dr. 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 ID: [id number], Energy: 6X, Dose/Fx (cGy): 200, #Fx: 35, Dose Correction (cGy): 0, Total Dose Delivered (cGy): 3,800, Start Date: 08/04/2024, Elapsed Days: 27 Reason for visit: The patient is being seen today as part of their regularly scheduled weekly on treatment visits to assess for acute toxicities from radiotherapy. Review of Systems: Patient has had issues since last week with increasing problems of nausea. He feels like some of it may be due to the gag reflex he is experiencing. He did throw up 3 times last night. His throat is more sore today. He has Magic mix but it does not seem to be working. He is not taking any pain medicine as yet. He has not been able to eat or drink normally in the last few days. Vital Signs: Performed on 08/31/2024 9:56 AM BMI - 40.977 kg/m2 (high), Height - 71 in, Weight - 293.8 lbs, Temperature - 97.3 f, Pulse - 91 /min, Respiration - 18 /min, O2 Sat - 98 %, Pain - 4, Fatigue - 0 and BP - 120/ 83 mm(hg). Physical Exam: On exam he just seems more fatigued. He has no changes in skin. Imaging: Radiation therapy imaging related to accurate target localization (i.e. KV, MV and CBCT) was reviewed. Appropriate changes, if any, were made to ensure treatment accuracy. Plan: Will continue with his treatments as planned. I have asked him to try his pain medicine to see if this will help. We talked about some different nutritional things he should think about. His daughter is helping him with this. I have sent Ricardo PEREIRA to his pharmacy. He will get IV Zofran and fluids today. Signed by: Dr. Tonja Huertas 08/31/2024 10:57:08 AM
[2024-08-31 11:49] VITALS: BP 124/72; PULSE 55; RESP 18; TEMP 36.7; O2SAT 96
[2024-09-01] MEDS: sodium chloride 0.9% 1,000 ML 999 ML IV (10:39)
[2024-09-01 10:54] VITALS: RESP 18
[2024-09-01] MEDS: morphine 4 mg/mL SDV 1 mL 2 MG IVP (10:54)
[2024-09-01 11:45] VITALS: BP 128/78; PULSE 68; RESP 18; TEMP 36.6; O2SAT 99
[2024-09-01 12:10] VITALS: BP 124/78; PULSE 68; RESP 18; TEMP 36.4; O2SAT 99
[2024-09-02] MEDS: sodium chloride 0.9% 1,000 ML 999 ML IV (10:23)
[2024-09-02 11:32] VITALS: BP 114/75; PULSE 56; RESP 17; TEMP 36.8
[2024-09-06 08:10] LABS: Basophils % 0.3 %; Eosinophils # 0.1 10^3/uL (0.0-0.8); Eosinophils % 1.7 %; Hematocrit 39.2 % (37-53); Lymphocytes # 0.6 10^3/uL (0.8-4.8); Lymphocytes % 9.9 %; Mean Corpuscular HGB Conc 33.7 g/dL (30-55); Mean Corpuscular Volume 89.1 fl (82-101); Mean Platelet Volume 8.9 fL (7.4-10.4); Monocytes # 0.7 10^3/uL (0.2-0.9); Monocytes % 11.8 %; Nucleated Red Blood Cells % 0 %; Platelet Count 222 10^3/cmm (157-399); Red Cell Distribution Width 11.9 % (12.1-15.1); White Blood Count 5.93 10^3/uL (3.29-11.43)
[2024-09-06 08:27] LABS: Alanine Aminotransferase 10 U/L (0-41); Albumin Level 3.8 g/dL (3.5-5.2); Alkaline Phosphatase 87 U/L (40-130); Anion Gap 17.3 (5-19); Aspartate Amino Transferase 10 U/L (0-40); Blood Urea Nitrogen 21 mg/dL (6-20); Calcium 9.3 mg/dL (8.5-10.5); Carbon Dioxide 27 mmol/L (22-29); Chloride 94 mmol/L (98-107); Globulin 3.6 g/dL (1.3-4.6); Glomerular Filtration Rate 28.4 mL/min (90-130); Glucose 105 mg/dL (65-115); Osmolality Calculated 283 mOsm/kg (285-295); Potassium 3.3 mmol/L (3.5-5.1); Sodium 135 mmol/L (136-145); Total Bilirubin 0.4 mg/dL (0.15-1.2); Total Protein 7.4 g/dL (6.6-8.7)
[2024-09-06] MEDS: sodium chlor 0.9% + KCl 20 mEq 20 MEQ/1,000 ML BAG 500 MEQ IV (08:43)
[2024-09-06] MEDS: magnesium sulfate premix 2 GM/50 ML PIGGYBACK IV (08:44)
[2024-09-06] MEDS: sodium chloride 0.9% 250 ML 75 ML IV (10:22)
[2024-09-06] MEDS: OLANZapine 5 mg TABLET PO (10:28)
[2024-09-06] MEDS: acetaminophen 325 mg Tablet 650 MG PO (10:28)
[2024-09-06] MEDS: aprepitant 130 mg/18 ml SDV IVP (10:29)
[2024-09-06] MEDS: palonosetron 0.25 mg/5 mL SDV IVP (10:38)
[2024-09-06] MEDS: dexamethasone 4 mg/mL INJ 5 mL 12 MG IVP (10:43)
[2024-09-06] MEDS: famotidine 20 mg/2 mL INJ IVP (10:48)
[2024-09-06] MEDS: diphenhydrAMINE 50 mg/mL SDV 1mL 25 MG IVP (10:52)
[2024-09-06] MEDS: potassium chloride 20 MEQ in sodium chloride 0.9% 500 ML 500 MEQ IV (14:25)
[2024-09-06 15:40] VITALS: BP 109/70; PULSE 51; RESP 17; TEMP 36.6; O2SAT 95
--- NOTE | 2024-09-07 08:22 | ONCRAD TMN_ITS ---
Radiation Oncology Weekly Treatment Management Patient: Tejas Yates MR#: [id number] : 1970> Attending Physician: Dr. 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 ID: [id number], Energy: 6X, Dose/Fx (cGy): 200, #Fx: / 35, Dose Correction (cGy): 0, Total Dose Delivered (cGy): 4,800, Start Date: 08/04/2024, Elapsed Days: 34 Reason for visit: The patient is being seen today as part of their regularly scheduled weekly on treatment visits to assess for acute toxicities from radiotherapy. Review of Systems: Patient is feeling much better. He did get steroids with his chemotherapy yesterday. His throat is not as sore. His skin is without changes. His gout has settled down as well. Vital Signs: Performed on 09/07/2024 7:56 AM BMI - 40.893 kg/m2 (high), Height - 71 in, Weight - 293.2 lbs, Temperature - 98.2 f, Pulse - 51 /min (low), Respiration - 18 /min, O2 Sat - 97 %, Pain - 0, Fatigue - 0 and BP - 122/ 76 mm(hg). Physical Exam: On exam he has no changes in his skin Imaging: Radiation therapy imaging related to accurate target localization (i.e. KV, MV and CBCT) was reviewed. Appropriate changes, if any, were made to ensure treatment accuracy. Plan: Will continue with his treatments as planned. He will get fluids all week this week. Signed by: Dr. Tonja Huertas 09/07/2024 8:20:25 AM
[2024-09-07] MEDS: sodium chloride 0.9% 1,000 ML 999 ML IV (08:29)
== END 2024-09-07 15:51 | disposition home or self-care (01) ==
PROVIDERS: Internal Medicine Medical Oncology; Visit Provider Radiology Radiation Oncology
DX: Z51.0 Encounter for antineoplastic radiation therapy (principal); C09.9 Malignant neoplasm of tonsil, unspecified; C01 Malignant neoplasm of base of tongue; C77.0 Secondary and unspecified malignant neoplasm of lymph nodes of head, face and neck; Z79.899 Other long term (current) drug therapy
CPT/HCPCS: 36591; 77336; 77386; 80053; 85025; 96360; 96361; 96367; 96374; 96375; 96413; 96415; 99024; 99214; J0185; J1100; J1200; J2270; J2405; J2469; J3475; J3480; J3490; J7030; J7040; J7050; J9060; J9999

== ENCOUNTER 2024-09-20 10:00 | Oncology outpatient (recurring) (ONCR) | payer OTHER, SELFPAY ==
[2024-09-08 08:46] LABS: Basophils % 0.3 %; Eosinophils # 0.1 10^3/uL (0.0-0.8); Eosinophils % 0.9 %; Lymphocytes # 0.4 10^3/uL (0.8-4.8); Lymphocytes % 5.9 %; Mean Corpuscular HGB Conc 34.3 g/dL (30-55); Mean Corpuscular Volume 90.4 fl (82-101); Monocytes # 0.7 10^3/uL (0.2-0.9); Monocytes % 9.8 %; Neutrophils # 5.64 10^3/uL (1.8-7.7); Neutrophils % 82.7 %; Nucleated Red Blood Cells % 0 %; Platelet Count 231 10^3/cmm (157-399); Red Blood Count 3.87 10^6/uL (3.85-5.65); Red Cell Distribution Width 12.3 % (12.1-15.1); White Blood Count 6.82 10^3/uL (3.29-11.43)
[2024-09-08 09:01] LABS: D Dimer 1.26 ug/mLFEU (0-0.59)
[2024-09-08 09:13] LABS: Alanine Aminotransferase 20 U/L (0-41); Albumin Level 3.7 g/dL (3.5-5.2); Alkaline Phosphatase 76 U/L (40-130); Anion Gap 15.1 (5-19); Aspartate Amino Transferase 19 U/L (0-40); Blood Urea Nitrogen 33 mg/dL (6-20); Calcium 8.8 mg/dL (8.5-10.5); Carbon Dioxide 26 mmol/L (22-29); Chloride 99 mmol/L (98-107); Globulin 2.7 g/dL (1.3-4.6); Glomerular Filtration Rate 31.3 mL/min (90-130); Glucose 106 mg/dL (65-115); NT Pro B Type Natriuretic Pept 324 pg/mL (0-125); Osmolality Calculated 292 mOsm/kg (285-295); Potassium 3.1 mmol/L (3.5-5.1); Sodium 137 mmol/L (136-145); Total Bilirubin 0.4 mg/dL (0.15-1.2); Total Protein 6.4 g/dL (6.6-8.7)
[2024-09-08 10:43] VITALS: BP 119/79; PULSE 90; O2SAT 97
[2024-09-08 11:22] VITALS: BP 141/95; PULSE 111; RESP 19; TEMP 36.6; O2SAT 98
--- NOTE | 2024-09-08 11:23 | PC.NURSE ---
Patient came in for the hydration fluids which he states his heart is racing which Nida Varner [employer] notified with labs ordered and EKG which was evaluated by Nida Varner and Dr Ibarra. Fluids continued.mm
[2024-09-09 08:40] VITALS: BP 113/72; PULSE 52; RESP 16; TEMP 36.6; O2SAT 98
[2024-09-09] MEDS: sodium chloride 0.9% 1,000 ML 999 ML IV (08:54)
[2024-09-10] MEDS: sodium chloride 0.9% 1,000 ML 999 ML IV (08:18)
[2024-09-10 09:23] VITALS: BP 116/71; PULSE 48; RESP 18; TEMP 36.6; O2SAT 90
[2024-09-13 10:43] LABS: Basophils % 0.2 %; Eosinophils # 0.1 10^3/uL (0.0-0.8); Hematocrit 34.3 % (37-53); Lymphocytes # 0.3 10^3/uL (0.8-4.8); Lymphocytes % 5.7 %; Mean Corpuscular HGB Conc 34.1 g/dL (30-55); Mean Corpuscular Hemoglobin 30.5 pg (27-33); Mean Corpuscular Volume 89.3 fl (82-101); Monocytes # 0.6 10^3/uL (0.2-0.9); Monocytes % 12.4 %; Neutrophils % 80.3 %; Nucleated Red Blood Cells % 0 %; Platelet Count 191 10^3/cmm (157-399); Red Blood Count 3.84 10^6/uL (3.85-5.65); Red Cell Distribution Width 11.9 % (12.1-15.1)
[2024-09-13 11:03] LABS: Alanine Aminotransferase 19 U/L (0-41); Albumin Level 3.6 g/dL (3.5-5.2); Alkaline Phosphatase 82 U/L (40-130); Anion Gap 14.5 (5-19); Aspartate Amino Transferase 15 U/L (0-40); Blood Urea Nitrogen 44 mg/dL (6-20); Calcium 8.2 mg/dL (8.5-10.5); Carbon Dioxide 28 mmol/L (22-29); Chloride 102 mmol/L (98-107); Globulin 3.1 g/dL (1.3-4.6); Glomerular Filtration Rate 18.3 mL/min (90-130); Glucose 142 mg/dL (65-115); Osmolality Calculated 306 mOsm/kg (285-295); Potassium 3.5 mmol/L (3.5-5.1); Sodium 141 mmol/L (136-145); Total Bilirubin 0.4 mg/dL (0.15-1.2); Total Protein 6.7 g/dL (6.6-8.7)
[2024-09-13] MEDS: sodium chloride 0.9% 1,000 ML 999 ML IV (13:13)
[2024-09-13 14:26] VITALS: BP 166/69; PULSE 51; RESP 18; TEMP 36.6; O2SAT 98
[2024-09-13 15:14] VITALS: BP 166/69; PULSE 51; RESP 18; TEMP 36.6; O2SAT 98
[2024-09-14] MEDS: sodium chloride 0.9% 1,000 ML 999 ML IV (08:44)
--- NOTE | 2024-09-14 09:14 | ONCRAD TMN_ITS ---
Radiation Oncology Weekly Treatment Management Patient: Mariano Lazaro MR#: [id number] : 1970 Attending Physician: Dr. 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 ID: [id number], Energy: 6X, Dose/Fx (cGy): 200, #Fx: / 35, Dose Correction (cGy): 0, Total Dose Delivered (cGy): 5,800, Start Date: 08/04/2024, Elapsed Days: 41 Reason for visit: The patient is being seen today as part of their regularly scheduled weekly on treatment visits to assess for acute toxicities from radiotherapy. Review of Systems: Patient feels somewhat fatigued today. He is struggling with the toxicity from his chemotherapy. His creatinine was 3.6 yesterday. Vital Signs: Performed on 09/14/2024 8:12 AM BMI - 40.391 kg/m2 (high), Height - 71 in, Weight - 289.6 lbs, Temperature - 97.5 f, Pulse - 76 /min, Respiration - 17 /min, O2 Sat - 96 %, Pain - 0, Fatigue - 0 and BP - 134/ 83 mm(hg). Physical Exam: His exam is stable. He has minimal hyperpigmentation. Imaging: Radiation therapy imaging related to accurate target localization (i.e. KV, MV and CBCT) was reviewed. Appropriate changes, if any, were made to ensure treatment accuracy. Plan: He will continue get IV fluids for the next couple weeks due to the toxicity to his kidneys from his chemotherapy. Will otherwise be finished with his treatments by next Friday. Signed by: Dr. Tonja Huertas 09/14/2024 9:12:47 AM
[2024-09-14 09:53] VITALS: BP 108/68; PULSE 46; RESP 18; TEMP 36.9; O2SAT 95
[2024-09-15] MEDS: sodium chloride 0.9% 1,000 ML 999 ML IV (08:28)
[2024-09-15 09:35] VITALS: BP 124/78; PULSE 78; RESP 18; TEMP 36.6; O2SAT 98
[2024-09-16] MEDS: sodium chloride 0.9% 1,000 ML 999 ML IV (09:18)
[2024-09-16 10:32] VITALS: BP 121/69; PULSE 43; TEMP 36.8; O2SAT 94
[2024-09-16 10:58] LABS: Anion Gap 14.4 (5-19); Blood Urea Nitrogen 31 mg/dL (6-20); Calcium 8.1 mg/dL (8.5-10.5); Carbon Dioxide 26 mmol/L (22-29); Chloride 104 mmol/L (98-107); Glomerular Filtration Rate 29.8 mL/min (90-130); Glucose 101 mg/dL (65-115); Osmolality Calculated 299 mOsm/kg (285-295); Potassium 3.4 mmol/L (3.5-5.1); Sodium 141 mmol/L (136-145)
[2024-09-17] MEDS: sodium chloride 0.9% 1,000 ML 999 ML IV (08:30)
[2024-09-20 10:30] LABS: Basophils % 0.6 %; Eosinophils # 0.1 10^3/uL (0.0-0.8); Eosinophils % 1.6 %; Hematocrit 31.2 % (37-53); Lymphocytes # 0.2 10^3/uL (0.8-4.8); Lymphocytes % 6.9 %; Mean Corpuscular HGB Conc 33.3 g/dL (30-55); Mean Corpuscular Hemoglobin 30.2 pg (27-33); Mean Corpuscular Volume 90.7 fl (82-101); Monocytes # 0.4 10^3/uL (0.2-0.9); Monocytes % 11.3 %; Neutrophils # 2.52 10^3/uL (1.8-7.7); Neutrophils % 79.3 %; Nucleated Red Blood Cells % 0 %; Platelet Count 163 10^3/cmm (157-399); Red Blood Count 3.44 10^6/uL (3.85-5.65); White Blood Count 3.18 10^3/uL (3.29-11.43)
[2024-09-20] MEDS: sodium chloride 0.9% 1,000 ML 999 ML IV (10:45)
[2024-09-20 10:52] LABS: Alanine Aminotransferase 14 U/L (0-41); Albumin Level 3.5 g/dL (3.5-5.2); Alkaline Phosphatase 89 U/L (40-130); Anion Gap 16.1 (5-19); Aspartate Amino Transferase 11 U/L (0-40); Blood Urea Nitrogen 27 mg/dL (6-20); Calcium 8.6 mg/dL (8.5-10.5); Carbon Dioxide 27 mmol/L (22-29); Chloride 102 mmol/L (98-107); Creatinine Clr Calc Pharmacy 52.6042; Globulin 3.1 g/dL (1.3-4.6); Glomerular Filtration Rate 31.3 mL/min (90-130); Glucose 129 mg/dL (65-115); Osmolality Calculated 301 mOsm/kg (285-295); Potassium 3.1 mmol/L (3.5-5.1); Sodium 142 mmol/L (136-145); Total Bilirubin 0.5 mg/dL (0.15-1.2); Total Protein 6.6 g/dL (6.6-8.7)
[2024-09-20 11:58] VITALS: BP 121/66; PULSE 41; RESP 18; TEMP 36.3; O2SAT 95
== END 2024-09-20 23:59 | disposition home or self-care (01) ==
PROVIDERS: Internal Medicine Medical Oncology; Nurse Practitioner Family; Visit Provider Radiology Radiation Oncology
DX: Z53.9 Procedure and treatment not carried out, unspecified reason (principal); Z51.0 Encounter for antineoplastic radiation therapy; C01 Malignant neoplasm of base of tongue; C09.9 Malignant neoplasm of tonsil, unspecified; C77.0 Secondary and unspecified malignant neoplasm of lymph nodes of head, face and neck; Z79.899 Other long term (current) drug therapy; I48.91 Unspecified atrial fibrillation; N28.9 Disorder of kidney and ureter, unspecified
CPT/HCPCS: 36591; 77014; 77336; 77386; 80048; 80053; 83880; 85025; 85378; 93005; 96360; 99024; 99214; J7030

== ENCOUNTER 2024-10-20 14:00 | Oncology outpatient (recurring) (ONCR) | payer OTHER, SELFPAY ==
[2024-09-21] MEDS: sodium chloride 0.9% 1,000 ML 999 ML IV (10:37)
--- NOTE | 2024-09-21 11:20 | ONCRAD TMN_ITS ---
Radiation Oncology Weekly Treatment Management Patient: Tejas Quintana> MR#: [id number] : 1970> Attending Physician: Dr. 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 ID: [id number], Energy: 6X, Dose/Fx (cGy): 200, #Fx: 34 / 35, Dose Correction (cGy): 0, Total Dose Delivered (cGy): 6,800, Start Date: 08/04/2024, Elapsed Days: 48 Reason for visit: The patient is being seen today as part of their regularly scheduled weekly on treatment visits to assess for acute toxicities from radiotherapy. Review of Systems: Patient said his throat is improved some. Vital Signs: Performed on 09/21/2024 10:02 AM BMI - 39.778 kg/m2 (high), Height - 71 in, Weight - 285.2 lbs, Temperature - 97.4 f, Pulse - 53 /min (low), Respiration - 18 /min, O2 Sat - 98 %, Pain - 1, Fatigue - 0 and BP - 147/ 83 mm(hg)(high/). Physical Exam: On exam his skin is hyperpigmented mostly in the creases. These areas of also cracked. Imaging: Radiation therapy imaging related to accurate target localization (i.e. KV, MV and CBCT) was reviewed. Appropriate changes, if any, were made to ensure treatment accuracy. Plan: He has 1 treatment remaining. He will continue to use a triple antibiotic ointment on his neck. He will return for follow-up in [address] Chacon. Signed by: Dr. Tonja Huertas 09/21/2024 11:18:03 AM
[2024-09-22] MEDS: sodium chloride 0.9% 1,000 ML 999 ML IV (10:44)
[2024-09-22 11:58] VITALS: BP 134/79; PULSE 50; RESP 17; TEMP 37.2; O2SAT 95
--- NOTE | 2024-09-22 14:14 | N.ONRD TS_ITS ---
Radiation Oncology Treatment Summary Patient: Trisha MR#: [id number] : 1970> Age: 53> Sex: Male Dictated by: Dr. 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 ID: [id number], Energy: 6X, Dose/Fx (cGy): 200, #Fx: 35 / 35, Dose Correction (cGy): 0, Total Dose Delivered (cGy): 7,000, Start Date: 08/04/2024, End Date: 09/22/2024, Elapsed Days: 49 Clinical Summary: The patient tolerated RT with normal side effects. He had mucositis that developed a little early. He got very dehydrated and required fluids. He also had significant toxicity from his chemotherapy with his creatinine rising above 3. He proceeded to get additional fluids for his kidney function. At the completion of treatment he is developed a moist desquamation and hyperpigmentation in the skin across the back of his neck and around the front. He is sore throat is actually improved. Plan: End of treatment today. Continue on the above medication until the skin reaction resolves. Follow up in one month. Signed by: Dr. Tonja Huertas>09/22/2024 2:12:34 PM <<Signature on File>>
[2024-10-11 11:55] LABS: Basophils % 0.8 %; Eosinophils # 0.1 10^3/uL (0.0-0.8); Hematocrit 31.6 % (37-53); Lymphocytes # 0.4 10^3/uL (0.8-4.8); Mean Corpuscular HGB Conc 33.2 g/dL (30-55); Mean Corpuscular Hemoglobin 30.2 pg (27-33); Mean Corpuscular Volume 90.8 fl (82-101); Monocytes # 0.6 10^3/uL (0.2-0.9); Monocytes % 12.3 %; Neutrophils # 4.03 10^3/uL (1.8-7.7); Neutrophils % 78.3 %; Nucleated Red Blood Cells % 0 %; Platelet Count 319 10^3/cmm (157-399); Red Blood Count 3.48 10^6/uL (3.85-5.65); Red Cell Distribution Width 13.2 % (12.1-15.1); White Blood Count 5.14 10^3/uL (3.29-11.43)
[2024-10-11 12:12] LABS: Alanine Aminotransferase 28 U/L (0-41); Albumin Level 3.4 g/dL (3.5-5.2); Alkaline Phosphatase 92 U/L (40-130); Anion Gap 14.7 (5-19); Aspartate Amino Transferase 23 U/L (0-40); Blood Urea Nitrogen 28 mg/dL (6-20); Calcium 8.8 mg/dL (8.5-10.5); Carbon Dioxide 30 mmol/L (22-29); Chloride 88 mmol/L (98-107); Globulin 3.5 g/dL (1.3-4.6); Glomerular Filtration Rate 28.2 mL/min (90-130); Glucose 136 mg/dL (65-115); Osmolality Calculated 278 mOsm/kg (285-295); Sodium 130 mmol/L (136-145); Total Bilirubin 0.5 mg/dL (0.15-1.2); Total Protein 6.9 g/dL (6.6-8.7)
[2024-10-11 12:15] LABS: Potassium 2.7 mmol/L (3.5-5.1)
[2024-10-11] MEDS: sodium chlor 0.9% + KCl 40 mEq 40 MEQ/1,000 ML BAG 250 MEQ IV (12:45)
[2024-10-11 15:00] VITALS: BP 100/65; PULSE 64; RESP 17; TEMP 36.3; O2SAT 95
[2024-10-12] MEDS: sodium chlor 0.9% + KCl 20 mEq 20 MEQ/1,000 ML BAG 500 MEQ IV (12:22)
[2024-10-13] MEDS: sodium chlor 0.9% + KCl 20 mEq 20 MEQ/1,000 ML BAG 500 MEQ IV (11:47)
[2024-10-14 09:44] LABS: Basophils % 0.7 %; Eosinophils # 0.1 10^3/uL (0.0-0.8); Eosinophils % 1.5 %; Hematocrit 29.3 % (37-53); Lymphocytes # 0.4 10^3/uL (0.8-4.8); Lymphocytes % 10.7 %; Mean Corpuscular HGB Conc 33.1 g/dL (30-55); Mean Corpuscular Hemoglobin 30.7 pg (27-33); Mean Corpuscular Volume 92.7 fl (82-101); Mean Platelet Volume 8.5 fL (7.4-10.4); Monocytes # 0.5 10^3/uL (0.2-0.9); Monocytes % 13.4 %; Neutrophils # 2.92 10^3/uL (1.8-7.7); Neutrophils % 72.7 %; Nucleated Red Blood Cells % 0 %; Platelet Count 292 10^3/cmm (157-399); Red Blood Count 3.16 10^6/uL (3.85-5.65); Red Cell Distribution Width 13.2 % (12.1-15.1); White Blood Count 4.02 10^3/uL (3.29-11.43)
[2024-10-14 10:08] LABS: Alanine Aminotransferase 29 U/L (0-41); Albumin Level 3.3 g/dL (3.5-5.2); Alkaline Phosphatase 89 U/L (40-130); Anion Gap 12.3 (5-19); Aspartate Amino Transferase 27 U/L (0-40); Blood Urea Nitrogen 19 mg/dL (6-20); Calcium 8.8 mg/dL (8.5-10.5); Carbon Dioxide 28 mmol/L (22-29); Chloride 98 mmol/L (98-107); Creatinine Clr Calc Pharmacy 54.4071; Globulin 3.2 g/dL (1.3-4.6); Glomerular Filtration Rate 34.9 mL/min (90-130); Glucose 108 mg/dL (65-115); Osmolality Calculated 283 mOsm/kg (285-295); Potassium 3.3 mmol/L (3.5-5.1); Sodium 135 mmol/L (136-145); Total Bilirubin 0.4 mg/dL (0.15-1.2); Total Protein 6.5 g/dL (6.6-8.7)
[2024-10-14] MEDS: sodium chlor 0.9% + KCl 40 mEq 40 MEQ/1,000 ML BAG 250 MEQ IV (11:04)
--- NOTE | 2024-10-14 13:12 | ONCRAD EPV_ITS ---
Radiation Oncology Established Patient Visit Patient: Tejas Qiuntana [id number] : 1970> Age: 54> Sex: Male> Dictated by: Dr. 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 ID: [id number], Energy: 6X, Dose/Fx (cGy): 200, #Fx: 35 / 35, Dose Correction (cGy): 0, Total Dose Delivered (cGy): 7,000, Start Date: 08/04/2024, End Date: 09/22/2024, Elapsed Days: 49 Current History: He has had slow recovery since completing treatment. He still has a sense of something present in back of throat. Saliva feels thick. Swallowing has improved. All intake is oral. No Peg tube was placed. He is a non-smoker. Left neck mass has resolved. Skin blistering and peeling has resolved. Now receiving IVF in infusion suite here. Not active or resuming work yet. He is an independent lead electrician. Lives independently with his 18 year old daughter who is helpful. Taste is improving. Energy is better as well. Overall he has lost by his measure 60 pounds. Allergies: No Known Allergies Current Complaints / Review of Systems: . Vital Signs: Performed on 10/14/2024 10:16 AM BMI - 36.43 kg/m2 (high), Height - 71 in, Weight - 261.2 lbs, Temperature - 96.3 f, Pulse - 78 /min, Respiration - 18 /min, O2 Sat - 97 %, Pain - 1, Fatigue - 0 and BP - 115/ 71 mm(hg). Physical Exam: General: Alert and oriented x 3. No acute distress. Oral cavity reveals residual mucositis of left soft palate and left tonsil. . Wang neck with no palpable adenopathy. Good saliva in oral cavity. Performance Status: ECOG PS 1 Lab: None pending. Pathology: Primary, c01 - malignant neoplasm of base of tongue, Diagnosed 08/02/2024 (active) , Primary, c09.9 - malignant neoplasm of tonsil, unspecified, Diagnosed 08/02/2024 (active) and Primary, c77.0 - secondary and unspecified malignant neoplasm of lymph nodes of head, face and neck, Diagnosed 08/02/2024 (active) . 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 Slowing improving post treatment. No residual adenopathy or tonsillar mass. FU here in 3 months. He will see med onc who will also order FU PET/CT. Signed by: 10/14/2024 1:11:05 PM <<Signature on File>> Time spent with patient: CPT Code: * CPT Code: *
[2024-10-14 13:15] VITALS: BP 124/75; PULSE 58; TEMP 36; O2SAT 98
[2024-10-18 08:32] LABS: Basophils % 0.8 %; Eosinophils # 0.1 10^3/uL (0.0-0.8); Eosinophils % 1.9 %; Hematocrit 30.7 % (37-53); Lymphocytes # 0.4 10^3/uL (0.8-4.8); Lymphocytes % 7.9 %; Mean Corpuscular HGB Conc 32.9 g/dL (30-55); Mean Corpuscular Hemoglobin 30.2 pg (27-33); Mean Corpuscular Volume 91.9 fl (82-101); Mean Platelet Volume 8.7 fL (7.4-10.4); Monocytes # 0.7 10^3/uL (0.2-0.9); Monocytes % 13.4 %; Neutrophils # 3.66 10^3/uL (1.8-7.7); Neutrophils % 75.6 %; Nucleated Red Blood Cells % 0 %; Platelet Count 280 10^3/cmm (157-399); Red Blood Count 3.34 10^6/uL (3.85-5.65); Red Cell Distribution Width 13.6 % (12.1-15.1); White Blood Count 4.84 10^3/uL (3.29-11.43)
[2024-10-18 08:48] LABS: Alanine Aminotransferase 30 U/L (0-41); Albumin Level 3.3 g/dL (3.5-5.2); Alkaline Phosphatase 100 U/L (40-130); Anion Gap 15.4 (5-19); Aspartate Amino Transferase 20 U/L (0-40); Blood Urea Nitrogen 17 mg/dL (6-20); Calcium 8.8 mg/dL (8.5-10.5); Carbon Dioxide 26 mmol/L (22-29); Chloride 99 mmol/L (98-107); Globulin 3.3 g/dL (1.3-4.6); Glucose 104 mg/dL (65-115); Osmolality Calculated 286 mOsm/kg (285-295); Potassium 3.4 mmol/L (3.5-5.1); Sodium 137 mmol/L (136-145); Total Bilirubin 0.5 mg/dL (0.15-1.2); Total Protein 6.6 g/dL (6.6-8.7)
[2024-10-18 08:52] LABS: Creatinine Clr Calc Pharmacy 57.2706
[2024-10-18] MEDS: sodium chlor 0.9% + KCl 20 mEq 20 MEQ/1,000 ML BAG 500 MEQ IV (09:27)
[2024-10-20] MEDS: sodium chlor 0.9% + KCl 20 mEq 20 MEQ/1,000 ML BAG 733 MEQ IV (14:21)
[2024-10-20 15:51] VITALS: BP 109/71; PULSE 53; RESP 16; TEMP 36.1; O2SAT 98
== END 2024-10-20 23:59 | disposition home or self-care (01) ==
PROVIDERS: Internal Medicine Medical Oncology; Visit Provider Radiology Radiation Oncology
DX: Z53.9 Procedure and treatment not carried out, unspecified reason (principal); E87.6 Hypokalemia; Z79.899 Other long term (current) drug therapy
CPT/HCPCS: 77336; 77386; 80053; 85025; 96360; 96365; 96366; 99024; 99214; J3480; J7030; J9999

== ENCOUNTER 2024-10-28 11:20 | Day surgery (SDC) | payer OTHER, SELFPAY ==
--- NOTE | 2024-10-28 11:31 | US_ITS ---
WS: [id number] Ultrasound chest. HISTORY: Small RIGHT pleural effusion noted on recent chest radiograph. Patient presents for thoracentesis. Very small RIGHT pleural effusion is identified. There is very limited amount of fluid present, insufficient for safe thoracentesis. There was only a very small effusion also noted on the chest radiograph. This was explained in detail to the patient. US/US chest [id number] IMPRESSION: Very small RIGHT pleural effusion. Insufficient for thoracentesis.
[2024-10-28 11:35] VITALS: BP 110/73; PULSE 82; RESP 18; TEMP 36.6; O2SAT 96; BMI 34.8
--- NOTE | 2024-10-28 12:10 | PC.NURSE ---
Dr. jessica see pt. Pt does not have enough fluid to have removed at this time.
== END 2024-10-28 12:18 | disposition home or self-care (01) ==
PROVIDERS: Radiology Diagnostic Radiology; PCP Nurse Practitioner; Visit Provider Nurse Practitioner Family
PROC: (CPT 32554; principal; 2024-10-28 12:30)
DX: J90 Pleural effusion, not elsewhere classified (principal); Z53.8 Procedure and treatment not carried out for other reasons
CPT/HCPCS: 32555; 76604

== ENCOUNTER 2024-10-28 14:42 | Outpatient (CLI) | payer OTHER, SELFPAY ==
--- NOTE | 2024-10-28 14:47 | CT_ITS ---
WS: [id number] CT NECK TECHNIQUE: Contrast-enhanced CT of the neck with coronal and sagittal reformatted images. CLINICAL INFORMATION: MALIGNANT NEOPLASM OVERLAPPING SITES OF HYPOPHARYNX COMPARISON: PET/CT 07/16/2024 DLP: 254.[address] scans at [facility] use at least one of these dose optimization techniques: automated exposure control; mA and/or kV adjustment per patient size (includes targeted exams where dose is matched to clinical indication); or iterative reconstruction. FINDINGS: 13 mm metastatic lymphadenopathy with central necrosis anterior to the sternocleidomastoid. Residual soft tissue thickening at the LEFT tongue base and tonsil with treatment related changes. No evidence of progression in this area. No evidence of progressive lymphadenopathy. Residual lymphadenopathy deep to the LEFT sternocleidomastoid. Submandibular glands are normal. Parotid glands are normal. Normal posterior nasopharynx and parapharyngeal fat. Paranasal sinuses and mastoid air cells well aerated. Normal glottis and subglottic airway. Normal thyroid gland. Lung apices are well aerated. Mild spondylitic changes cervical spine. CT/CT neck w con* [id number] IMPRESSION: 1. Treatment-related changes in the LEFT tongue base and LEFT tonsil. No evide nce of progression in this area. 2. 13 mm LEFT neck lymphadenopathy with central necrosis described above just anterior to the sternocleidomastoid. 3. Residual but improved lymphadenopathy deep to the sternocleidomastoid. 4. No progressive adenopathy.
[2024-10-28] MEDS: iohexol 350 mg/mL 500 mL Btl (per mL) IV (15:15)
== END 2024-10-28 14:43 | disposition home or self-care (01) ==
PROVIDERS: PCP Nurse Practitioner; Visit Provider Specialist
DX: C13.8 Malignant neoplasm of overlapping sites of hypopharynx (principal); R59.0 Localized enlarged lymph nodes; M87.9 Osteonecrosis, unspecified; M79.89 Other specified soft tissue disorders; M47.892 Other spondylosis, cervical region
CPT/HCPCS: 70491

== ENCOUNTER 2024-11-08 14:16 | Emergency (ER) | payer OTHER, SELFPAY ==
[2024-11-08] VITALS (8 sets, daily range): BP systolic 113–131; BP diastolic 68–85; PULSE 50–84; RESP 16; TEMP 36.6; O2SAT 93–100; BMI 34.8
[2024-11-08 15:24] LABS: Basophils % 0.3 %; Eosinophils % 0.4 %; Hematocrit 33.1 % (37-53); Lymphocytes # 0.2 10^3/uL (0.8-4.8); Lymphocytes % 3.4 %; Mean Corpuscular HGB Conc 32.9 g/dL (30-55); Mean Corpuscular Hemoglobin 30.6 pg (27-33); Mean Platelet Volume 9.8 fL (7.4-10.4); Monocytes # 0.4 10^3/uL (0.2-0.9); Monocytes % 6.1 %; Neutrophils # 5.98 10^3/uL (1.8-7.7); Neutrophils % 89.2 %; Nucleated Red Blood Cells % 0 %; Platelet Count 224 10^3/cmm (157-399); Red Blood Count 3.56 10^6/uL (3.85-5.65); Red Cell Distribution Width 14.4 % (12.1-15.1); White Blood Count 6.71 10^3/uL (3.29-11.43)
[2024-11-08 15:42] LABS: Alanine Aminotransferase 59 U/L (0-41); Albumin Level 3.9 g/dL (3.5-5.2); Alkaline Phosphatase 84 U/L (40-130); Aspartate Amino Transferase 29 U/L (0-40); Blood Urea Nitrogen 26 mg/dL (6-20); Calcium 9.7 mg/dL (8.5-10.5); Carbon Dioxide 24 mmol/L (22-29); Chloride 97 mmol/L (98-107); Creatinine Clr Calc Pharmacy 62.8744; Globulin 3.2 g/dL (1.3-4.6); Glomerular Filtration Rate 42.1 mL/min (90-130); Glucose 108 mg/dL (65-115); Lipase 51 U/L (13-60); Osmolality Calculated 293 mOsm/kg (285-295); Sodium 139 mmol/L (136-145); Total Bilirubin 0.6 mg/dL (0.15-1.2); Total Protein 7.1 g/dL (6.6-8.7)
[2024-11-08 15:45] LABS: Anion Gap 21.9 (5-19); Potassium 3.9 mmol/L (3.5-5.1)
--- NOTE | 2024-11-08 16:40 | ED_ITS ---
Documented by User: Gerardo Infante DO 11/09/24 16:02 HPI - Nausea/Vomiting/Diarrhea 2 General: Chief complaint: Nausea/Vomiting/Diarrhea Stated complaint: sent from oncology, n/v, abnormal labs Time Seen by Provider: 11/08/24 16:39 History of Present Illness: 54-year-old male presents to the emergen cy room with complaints of shortness of breath. Patient had routine lab work today including a D-dimer which was elevated. He was directed to the emergency room for further evaluation. Patient does have elevated creatinine as well however and is actually trending better. He is not on any anticoagulants does not have any significant chest pain now. Associated symtoms: Reports chest pain; Denies dysuria Related Data Home Medications ?Medication ?Instructions ?Recorded ?Confirmed cholecalciferol (vitamin D3) 50 50 mcg PO DAILY Vitami n D 07/27/24 11/01/24 mcg (2,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 duloxetine 20 mg capsule,delayed 20 mg PO DAILY Depres aziza 07/27/24 11/01/24 release sprinkle fluticasone propionate 50 50 mcg intranasal DAILY [employer] 07/27/24 11/01/24 mcg/actuation nasal Rinitis spray,suspension Previous Rx's ?Medication ?Instructions ?Recorded cpap auto titrating machine #1 ea 09/07/21 ondansetron 8 mg disintegrating [address] induced nausea #30 08/31/24 tablet tabs hydrocodone 10 mg-acetaminophen 15 ml PO Q6H PRN pain 2 weeks #473 09/01/24 325 mg/15 mL oral solution mL oxycodone 10 mg tablet 10 mg PO Q6H PRN pain 30 day s #120 09/01/24 tabs potassium chloride 8 mEq 8 meq PO BID 30 days #60 cap s 09/16/24 capsule,extended release amoxicillin 400 mg-potassium 10 ml PO BID #200 mL 10/21 08/17 clavulanate 57 mg/5 mL oral suspension apixaban 5 mg tablet (Eliquis) 5 mg PO BID #44 tabs olanzapine 5 mg tablet 5 mg PO DAILY 4 days #8 tabs 11/08/24 Allergies Allergy/AdvReac Type Severity Reaction Status Date / Time allopurinol Allergy Intermediate ALGY-Rash Verified 11/08/24 14:33 Review of Systems 2 Const: Denies: fever(s) or chills Card: Reports: chest pain Resp: Reports: dyspnea GI: Denies: abdominal pain : Denies: dysuria, urinary frequency or urinary urgency Musc: Denies: neck pain or back pain Skin/Breast: Denies: rash PFSH ED 2 PFSH: Medical History Morbid obesity Benign essential HTN Severe sleep apnea Surgical History Hx of appendectomy Family History Father Hypertension Denies family history of Diabetes CAD (coronary artery disease) Clotting disorder Dementia Chronic kidney disease (CKD) Suicide Anesthesia complication Bleeding disorder Lung disease Cancer Stroke Social History Smoking and tobacco/nicotine status: never used tobacco/nicotine Second hand smoke exposure: No Alcohol intake: never Substance/Drug Use: never Adopted: No Caregiver/support person: No Lives independently: Yes Household members: spouse Housing: House Marital status: Number of children: 3 Highest education level completed: High School Graduate service: Yes branch: [employer] Physical Exam 2 Const: GENERAL APPEARANCE: cooperative ORIENTATION/CONSCIOUSNESS: Yes awake, Yes oriented to person, Yes oriented to place and Yes oriented to time HENMT: COMMON NORMALS: normocephalic, atraumatic and hearing grossly normal bilaterally HEAD & SCALP: normocephalic and atraumatic Resp: COMMON NORMALS: normal respiratory effort, No retractions, No use of accessory muscles and clear to auscultation bilaterally AUSCULTATION: clear to auscultation bilaterally Cardio: COMMON NORMALS: regular rate, regular rhythm and No murmurs present (Cardio) RATE: regular rate RHYTHM: regular rhythm GI: COMMON NORMALS: Soft to palpation and No hepatosplenomegaly present A USCULTATION: Yes normoactive bowel sounds PALPATION: Yes Soft to palpation, No Tenderness to palpation present (GI), No Guarding due to palpation present (GI) and Yes No hepatosplenomegaly present Extremity: COMMON NORMALS: normal to inspection, capillary refill normal, no clubbing, cyanosis or edema, no calf tenderness and no pedal edema Neuro: SENSORIUM/ORIENTATION: Yes oriented to person, Yes oriented to place and Yes oriented to time Skin: COMMON NORMALS: no rashes or lesions noted GENERAL SKIN EXAM: no rashes or lesions noted Course 2 Vital Signs: Vital signs: Vital Signs Temperature 97.9 F 11/08/24 14:23 Pulse Rate 58 L 11/08/24 21:12 Respiratory Rate 16 11/08/24 18:34 Blood Pressure 131/83 11/08/24 21:12 Pulse Oximetry 100 11/08/24 21:12 Oxygen Delivery Me thod Room Air 11/08/24 19:30 MDM - Nausea/Vomiting/Diarrhea Medical Decision Making Care signed out to Dr. roberts at change of shift. See final notes for diagnosis and disposition. Care assumed from Dr. Infante. Patient was awaiting CTA for further evaluation. His CTA did show pulmonary embolism. Patient was initially started on heparin. After discussion with the patient about outpatient management with his asymptomatic pulmonary embolisms he agreed to a Lovenox shot tonight with starting of Eliquis in the morning. As the patient did not have hypoxia or signs of heart strain he was a good candidate for outpatient management. He can follow-up with his primary care physician for further management of this. Patient was discharged home in good condition. Lab Data 11/08/24 15:05 11/08/24 15:05 Radiology Impressions Chest CTA 11/08/24 16:56 IMPRESSION: 1. Positive for pulmonary embolus within right segmental and subsegmental pulmonary artery supplying right lower lobe and subsegmental pulmonary artery supplying right upper lobe. 2. No CT evidence of right heart strain. 3. Trace bilateral pleural effusions, greater on the right. ADDENDUM: 11/08/24 1836 COMMENT: THIS REPORT CONTAINS FINDINGS THAT MAY BE CRITICAL TO PATIENT CARE. The exam findings were verbally communicated by me to Dr. Roberts via telephone conference at 6:34 PM CDT on 11/08/2024. The findings were acknowledged and understood. Laboratory Results WBC 6.71 10^3/uL (3.29-11.43) 11/08/24 15:05 RBC 3.56 10^6/uL (3.85-5.65) L 11/08/24 15:05 Hgb 10.90 g/dL (11.27-16.99) L 11/08/24 15:05 Hct 33.1 % (37-53) L 11/08/24 15:05 MCV 93.0 fl (82-101) 11/08/24 15:05 MCH 30.6 pg (27-33) 11/08/24 15:05 MCHC 32.9 g/dL (30-55) 11/08/24 15:05 RDW 14.4 % (12.1-15.1) 11/08/24 15:05 Plt Count 224 10^3/cmm (157-399) 11/08/24 15:05 MPV 9.8 fL (7.4-10.4) 11/08/24 15:05 Neut % (Auto) 89.2 % 11/08/24 15:05 Lymph % (Auto) 3.4 % 11/08/24 15:05 Glenn % (Auto) 6.1 % 11/08/24 15:05 Eos % (Auto) 0.4 % 11/08/24 15:05 Baso % (Auto) 0.3 % 11/08/24 15:05 Neut # (Auto) 5.98 10^3/uL (1.8-7.7) 11/08/24 15:05 Lymph # (Auto) 0.2 10^3/uL (0.8-4.8) L 11/08/24 15:05 Glenn # (Auto) 0.4 10^3/uL (0.2-0.9) 11/08/24 15:05 Eos # (Auto) 0.0 10^3/uL (0.0-0.8) 11/08/24 15:05 Baso # (Auto) 0.0 10^3/uL (0.0-0.1) 11/08/24 15:05 Nucleated RBC % (auto) 0 % 11/08/24 15:05 Nucleated RBCs # 0.0 /100WBC 11/08/24 15:05 Sodium 139 mmol/L (136-145) 11/08/24 15:05 Potassium 3.9 mmol/L (3.5-5.1) 11/08/24 15:05 Chloride 97 mmol/L (98-107) L 11/08/24 15:05 Carbon Dioxide 24 mmol/L (22-29) 11/08/24 15:05 Anion Gap 21.9 (5-19) H 11/08/24 15:05 BUN 26 mg/dL (6-20) H 11/08/24 15:05 Creatinine 1.7 mg/dL (0.7-1.2) H 11/08/24 15:05 GFR Calculation 42.1 mL/min (90-130) L 11/08/24 15:05 Glucose 108 mg/dL (65-115) 11/08/24 15:05 Calculated Osmolality 293 mOsm/kg (285-295) 11/08/24 15:05 Calcium 9.7 mg/dL (8.5-10.5) 11/08/24 15:05 Magnesium 2.0 mg/dL (1.7-2.3) 11/08/24 15:05 Total Bilirubin 0.6 mg/dL (0.15-1.2) 11/08/24 15:05 AST 29 U/L (0-40) 11/08/24 15:05 ALT 59 U/L (0-41) H 11/08/24 15:05 Alkaline Phosphatase 84 U/L (40-130) 11/08/24 15:05 Total Protein 7.1 g/dL (6.6-8.7) 11/08/24 15:05 Albumin 3.9 g/dL (3.5-5.2) 11/08/24 15:05 Globulin 3.2 g/dL (1.3-4.6) 11/08/24 15:05 Lipase 51 U/L (13-60) 11/08/24 15:05 Discharge Plan Discharge Patient Disposition: Home Clinical Impression: Pulmonary embolism Qualifiers: Pulmonary embolism type: multiple subsegmental (without acute cor pulmonale) Q ualified Code(s): I26.94 - Multiple subsegmental thrombotic pulmonary emboli without acute cor pulmonale Condition: Stable Prescriptions: New Eliquis 5 mg tablet 5 mg PO BID Qty: 44 0RF Rx Instructions: Take 2 tabs twice daily for the first 7 days followed by 1 tab twice a day No Action amoxicillin-pot clavulanate 400-57 mg/5 mL suspension for reconstitution 10 ml PO BID Qty: 200 0RF fluticasone propionate 50 mcg/actuation spray,suspension 50 mcg intranasal DAILY duloxetine 20 mg capsule, delayed rel sprinkle 20 mg PO DAILY cholecalciferol (vitamin D3) 50 mcg (2,000 unit) capsule 50 mcg PO DAILY (DME) cpap auto titrating machine See Rx Instructions .Route .MEDSUPPLY Qty: 1 0RF Rx Instructions: as directed cpap machine auto titration 5-20 with supplies ondansetron 8 mg tablet,disintegrating 8 mg PO Q8H Qty: 30 3RF hydrocodone-acetaminophen 10-325 mg/15 mL solution 15 ml PO Q6H PRN (Reason: pain) 14 Days Qty: 473 0RF oxycodone 10 mg tablet 10 mg PO Q6H PRN (Reason: pain) 30 Days Qty: 120 0RF potassium chloride 8 mEq capsule, extended release 8 meq PO BID 30 Days Qty: 60 5RF olanzapine 5 mg tablet 5 mg PO DAILY 4 Days Qty: 8 1RF Rx Instructions: 1-2 tabs once daily for up 4 days for nausea Discharge Orders: Discharge ED (Routine); Ordered 11/08/24 Ordered By: Keagan Roberts Referrals: Julissa Patton FNP [Primary Care Provider, Nurse Practitioner] Discharge Diet: Advance as tolerated Discharge Activity: Increase activity as tolerated Patient Instructions: Apixaban (By mouth), Pulmonary Embolism (ED), Opioid Safety, Pain Management Activity Restrictions/Additional Instructions: Please return to the emergency department any new or worsening symptoms. Please follow-up with your primary care physician for further management of your PE Print Language: Algerian Coding Level of Care Code ED Salon Supervisor for Chg Fwd Documented by User: Keagan Roberts DO 11/09/24 05:55 HPI - Nausea/Vomiting/Diarrhea 2 General: Chief complaint: Nausea/Vomiting/Diarrhea Stated complaint: sent from oncology, n/v, abnormal labs Time Seen by Provider: 11/08/24 16:39 Related Data Home Medications ?Medication ?Instructions ?Recorded ?Confirmed cholecalciferol (vitamin D3) 50 50 mcg PO DAILY Vitami n D 07/27/24 11/01/24 mcg (2,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 duloxetine 20 mg capsule,delayed 20 mg PO DAILY Depres aziza 07/27/24 11/01/24 release sprinkle fluticasone propionate 50 50 mcg intranasal DAILY [employer] 07/27/24 11/01/24 mcg/actuation nasal Rinitis spray,suspension Previous Rx's ?Medication ?Instructions ?Recorded cpap auto titrating machine #1 ea 09/07/21 ondansetron 8 mg disintegrating [address] induced nausea #30 08/31/24 tablet tabs hydrocodone 10 mg-acetaminophen 15 ml PO Q6H PRN pain 2 weeks #473 09/01/24 325 mg/15 mL oral solution mL oxycodone 10 mg tablet 10 mg PO Q6H PRN pain 30 day s #120 09/01/24 tabs potassium chloride 8 mEq 8 meq PO BID 30 days #60 cap s 09/16/24 capsule,extended release amoxicillin 400 mg-potassium 10 ml PO BID #200 mL 10/21 08/17 clavulanate 57 mg/5 mL oral suspension apixaban 5 mg tablet (Eliquis) 5 mg PO BID #44 tabs olanzapine 5 mg tablet 5 mg PO DAILY 4 days #8 tabs 11/08/24 Allergies Allergy/AdvReac Type Severity Reaction Status Date / Time allopurinol Allergy Intermediate ALGY-Rash Verified 11/08/24 14:33 PFSH ED 2 PFSH: Medical History Morbid obesity Benign essential HTN Severe sleep apnea Surgical History Hx of appendectomy Family History Father Hypertension Denies family history of Diabetes CAD (coronary artery disease) Clotting disorder Dementia Chronic kidney disease (CKD) Suicide Anesthesia complication Bleeding disorder Lung disease Cancer Stroke Social History Smoking and tobacco/nicotine status: never used tobacco/nicotine Second hand smoke exposure: No Alcohol intake: never Substance/Drug Use: never Adopted: No Caregiver/support person: No Lives independently: Yes Household members: spouse Housing: House Marital status: Number of children: 3 Highest education level completed: High School Graduate service: Yes branch: [employer] Course 2 Vital Signs: Vital signs: Vital Signs Temperature 97.9 F 11/08/24 14:23 Pulse Rate 58 L 11/08/24 21:12 Respiratory Rate 16 11/08/24 18:34 Blood Pressure 131/83 11/08/24 21:12 Pulse Oximetry 100 11/08/24 21:12 Oxygen Delivery Me thod Room Air 11/08/24 19:30 MDM - Nausea/Vomiting/Diarrhea Medical Decision Making Care assumed from Dr. Infante. Patient was awaiting CTA for further evaluation. His CTA did show pulmonary embolism. Patient was initially started on heparin. After discussion with the patient about outpatient management with his asymptomatic pulmonary embolisms he agreed to a Lovenox shot tonight with starting of Eliquis in the morning. As the patient did not have hypoxia or signs of heart strain he was a good candidate for outpatient management. He can follow-up with his primary care physician for further management of this. Patient was discharged home in good condition. Lab Data 11/08/24 15:05 11/08/24 15:05 Radiology Impressions Chest CTA 11/08/24 16:56 IMPRESSION: 1. Positive for pulmonary embolus within right segmental and subsegmental pulmonary artery supplying right lower lobe and subsegmental pulmonary artery supplying right upper lobe. 2. No CT evidence of right heart strain. 3. Trace bilateral pleural effusions, greater on the right. ADDENDUM: 11/08/24 [id number] COMMENT: THIS REPORT CONTAINS FINDINGS THAT MAY BE CRITICAL TO PATIENT CARE. The exam findings were verbally communicated by me to Dr. Roberts via telephone conference at 6:34 PM CDT on 11/08/2024. The findings were acknowledged and understood. Laboratory Results WBC 6.71 10^3/uL (3.29-11.43) 11/08/24 15:05 RBC 3.56 10^6/uL (3.85-5.65) L 11/08/24 15:05 Hgb 10.90 g/dL (11.27-16.99) L 11/08/24 15:05 Hct 33.1 % (37-53) L 11/08/24 15:05 MCV 93.0 fl (82-101) 11/08/24 15:05 MCH 30.6 pg (27-33) 11/08/24 15:05 MCHC 32.9 g/dL (30-55) 11/08/24 15:05 RDW 14.4 % (12.1-15.1) 11/08/24 15:05 Plt Count 224 10^3/cmm (157-399) 11/08/24 15:05 MPV 9.8 fL (7.4-10.4) 11/08/24 15:05 Neut % (Auto) 89.2 % 11/08/24 15:05 Lymph % (Auto) 3.4 % 11/08/24 15:05 Glenn % (Auto) 6.1 % 11/08/24 15:05 Eos % (Auto) 0.4 % 11/08/24 15:05 Baso % (Auto) 0.3 % 11/08/24 15:05 Neut # (Auto) 5.98 10^3/uL (1.8-7.7) 11/08/24 15:05 Lymph # (Auto) 0.2 10^3/uL (0.8-4.8) L 11/08/24 15:05 Glenn # (Auto) 0.4 10^3/uL (0.2-0.9) 11/08/24 15:05 Eos # (Auto) 0.0 10^3/uL (0.0-0.8) 11/08/24 15:05 Baso # (Auto) 0.0 10^3/uL (0.0-0.1) 11/08/24 15:05 Nucleated RBC % (auto) 0 % 11/08/24 15:05 Nucleated RBCs # 0.0 /100WBC 11/08/24 15:05 Sodium 139 mmol/L (136-145) 11/08/24 15:05 Potassium 3.9 mmol/L (3.5-5.1) 11/08/24 15:05 Chloride 97 mmol/L (98-107) L 11/08/24 15:05 Carbon Dioxide 24 mmol/L (22-29) 11/08/24 15:05 Anion Gap 21.9 (5-19) H 11/08/24 15:05 BUN 26 mg/dL (6-20) H 11/08/24 15:05 Creatinine 1.7 mg/dL (0.7-1.2) H 11/08/24 15:05 GFR Calculation 42.1 mL/min (90-130) L 11/08/24 15:05 Glucose 108 mg/dL (65-115) 11/08/24 15:05 Calculated Osmolality 293 mOsm/kg (285-295) 11/08/24 15:05 Calcium 9.7 mg/dL (8.5-10.5) 11/08/24 15:05 Magnesium 2.0 mg/dL (1.7-2.3) 11/08/24 15:05 Total Bilirubin 0.6 mg/dL (0.15-1.2) 11/08/24 15:05 AST 29 U/L (0-40) 11/08/24 15:05 ALT 59 U/L (0-41) H 11/08/24 15:05 Alkaline Phosphatase 84 U/L (40-130) 11/08/24 15:05 Total Protein 7.1 g/dL (6.6-8.7) 11/08/24 15:05 Albumin 3.9 g/dL (3.5-5.2) 11/08/24 15:05 Globulin 3.2 g/dL (1.3-4.6) 11/08/24 15:05 Lipase 51 U/L (13-60) 11/08/24 15:05 All radiology interpretation(s) finalized by discharge Discharge Plan Discharge Patient Disposition: Home Clinical Impression: Pulmonary embolism Qualifiers: Pulmonary embolism type: multiple subsegmental (without acute cor pulmonale) Q ualified Code(s): I26.94 - Multiple subsegmental thrombotic pulmonary emboli without acute cor pulmonale Condition: Stable Prescriptions: New Eliquis 5 mg tablet 5 mg PO BID Qty: 44 0RF Rx Instructions: Take 2 tabs twice daily for the first 7 days followed by 1 tab twice a day No Action amoxicillin-pot clavulanate 400-57 mg/5 mL suspension for reconstitution 10 ml PO BID Qty: 200 0RF fluticasone propionate 50 mcg/actuation spray,suspension 50 mcg intranasal DAILY duloxetine 20 mg capsule, delayed rel sprinkle 20 mg PO DAILY cholecalciferol (vitamin D3) 50 mcg (2,000 unit) capsule 50 mcg PO DAILY (DME) cpap auto titrating machine See Rx Instructions .Route .MEDSUPPLY Qty: 1 0RF Rx Instructions: as directed cpap machine auto titration 5-20 with supplies ondansetron 8 mg tablet,disintegrating 8 mg PO Q8H Qty: 30 3RF hydrocodone-acetaminophen 10-325 mg/15 mL solution 15 ml PO Q6H PRN (Reason: pain) 14 Days Qty: 473 0RF oxycodone 10 mg tablet 10 mg PO Q6H PRN (Reason: pain) 30 Days Qty: 120 0RF potassium chloride 8 mEq capsule, extended release 8 meq PO BID 30 Days Qty: 60 5RF olanzapine 5 mg tablet 5 mg PO DAILY 4 Days Qty: 8 1RF Rx Instructions: 1-2 tabs once daily for up 4 days for nausea Discharge Orders: Discharge ED (Routine); Ordered 11/08/24 Ordered By: Keagan Roberts Referrals: Julissa Patton, EVENT SERVICES MANAGER [Primary Care Provider, Nurse Practitioner] Discharge Diet: Advance as tolerated Discharge Activity: Increase activity as tolerated Patient Instructions: Apixaban (By mouth), Pulmonary Embolism (ED), Opioid Safety, Pain Management Activity Restrictions/Additional Instructions: Please return to the emergency department any new or worsening symptoms. Please follow-up with your primary care physician for further management of your PE Print Language: Algerian Coding Level of Care Code ED Salon Supervisor for Jimbo Mitchell
--- NOTE | 2024-11-08 16:51 | PC.NURSE ---
PATIENT PORT ACCESSED ON RIGHT CHEST PRIOR TO ARRIVAL.
--- NOTE | 2024-11-08 16:56 | CTR_ITS ---
PROCEDURE INFORMATION: Exam: CTA Chest With Contrast Exam date and time: 11/08/2024 5:43 PM Age: 54 years old Clinical indication: Dyspnea; Prior surgery; Surgery date: 1-6 months; Surgery type: Port; Additional info: Elevated d dimer, dyspnea, pharyngeal CA TECHNIQUE: Imaging protocol: Computed tomographic angiography of the chest with contrast. Exam focused on the arteries. 3D rendering (Not supervised by radiologist): MIP and/or 3D reconstructed images were created by the technologist. Radiation optimization: All CT scans at this facility use at least one of these dose optimization techniques: automated exposure control; mA and/or kV adjustment per patient size (includes targeted exams where dose is matched to clinical indication); or iterative reconstruction. Contrast material: OMNI 350; Contrast volume: 100 ml; Contrast route: INTRAVENOUS (IV); COMPARISON: PT PET skull to thigh INIT [id number] 07/16/2024 9:00 AM RADIATION DOSE METRICS: Total DLP (mGy-cm): 488.63 FINDINGS: Tubes, catheters and devices: Right-sided Port-A-Cath is present . Pulmonary arteries: Positive for pulmonary embolus within right segmental and subsegmental pulmonary artery supplying right lower lobe, subsegmental artery supplying right upper lobe. Pulmonary artery is nondilated. Aorta: Unremarkable. No aortic aneurysm. No aortic dissection. Lungs: Unremarkable. No consolidation. No masses. Pleural spaces: Trace bilateral pleural effusions, greater on the right. Heart: Mild cardiomegaly. No CT evidence of right heart strain. Heart RV/LV ratio: RV/LV ratio is 0.7 Lymph nodes: Unremarkable. No enlarged lymph nodes. Bones/joints: Unremarkable. No acute fracture. Soft tissues: Unremarkable. CT/CT angio chest PE protcl [id number] IMPRESSION: 1. Positive for pulmonary embolus within right segmental and subsegmental pulmonary artery supplying right lower lobe and subsegmental pulmonary artery supplying right upper lobe. 2. No CT evidence of right heart strain. 3. Trace bilateral pleural effusions, greater on the right.
[2024-11-08] MEDS: iohexol 350 mg/mL 500 mL Btl (per mL) IV (17:46)
[2024-11-08] MEDS: heparin drip 25,000 UNIT/500 ML PREMIX 32 UNIT IV (19:08)
[2024-11-08] MEDS: heparin 5,000 unit/mL INJ 1 mL IVP (19:11)
[2024-11-08] MEDS: enoxaparin 120 mg/0.8 mL Syringe 110 MG SUBCUT (20:40)
== END 2024-11-08 21:00 | disposition home or self-care (01) ==
PROVIDERS: Emergency Medicine; Emergency Provider General Practice; PCP Nurse Practitioner
DX: I26.94 Multiple subsegmental thrombotic pulmonary emboli without acute cor pulmonale (principal); I10 Essential (primary) hypertension
CPT/HCPCS: 36415; 71275; 80053; 83690; 83735; 85025; 96372; 96374; 99285; J1644; J1650

== ENCOUNTER 2024-11-10 16:00 | Oncology outpatient (recurring) (ONCR) | payer OTHER, SELFPAY ==
[2024-10-25 14:35] LABS: Basophils # 0.1 10^3/uL (0.0-0.1); Basophils % 0.9 %; Eosinophils # 0.1 10^3/uL (0.0-0.8); Eosinophils % 1.6 %; Hematocrit 30.8 % (37-53); Lymphocytes # 0.5 10^3/uL (0.8-4.8); Lymphocytes % 9.7 %; Mean Corpuscular HGB Conc 33.1 g/dL (30-55); Mean Corpuscular Hemoglobin 30.4 pg (27-33); Mean Corpuscular Volume 91.9 fl (82-101); Mean Platelet Volume 9.2 fL (7.4-10.4); Monocytes # 0.6 10^3/uL (0.2-0.9); Monocytes % 10.1 %; Neutrophils # 4.21 10^3/uL (1.8-7.7); Nucleated Red Blood Cells % 0 %; Platelet Count 261 10^3/cmm (157-399); Red Blood Count 3.35 10^6/uL (3.85-5.65); Red Cell Distribution Width 13.9 % (12.1-15.1); White Blood Count 5.47 10^3/uL (3.29-11.43)
[2024-10-25] MEDS: dexamethasone 4 mg/mL INJ 8 MG IVP (14:54)
[2024-10-25] MEDS: ondansetron 2 mg/ML SDV 2 mL 8 MG IVP (14:54)
[2024-10-25 14:55] LABS: Alanine Aminotransferase 59 U/L (0-41); Albumin Level 3.3 g/dL (3.5-5.2); Alkaline Phosphatase 109 U/L (40-130); Anion Gap 20.7 (5-19); Aspartate Amino Transferase 35 U/L (0-40); Blood Urea Nitrogen 26 mg/dL (6-20); Calcium 9.1 mg/dL (8.5-10.5); Carbon Dioxide 23 mmol/L (22-29); Chloride 100 mmol/L (98-107); Creatinine Clr Calc Pharmacy 62.8744; Globulin 3.4 g/dL (1.3-4.6); Glomerular Filtration Rate 42.1 mL/min (90-130); Glucose 95 mg/dL (65-115); Osmolality Calculated 295 mOsm/kg (285-295); Potassium 3.7 mmol/L (3.5-5.1); Sodium 140 mmol/L (136-145); Total Bilirubin 0.9 mg/dL (0.15-1.2); Total Protein 6.7 g/dL (6.6-8.7)
[2024-10-25] MEDS: sodium chloride 0.9% 500 ML IV (14:55)
[2024-10-25] MEDS: sodium chloride 0.9% 1,000 ML 999 ML IV (14:55)
[2024-10-25 17:17] LABS: Bilirubin Urine 2+ (Negative); Blood Urine Negative (Negative); Glucose Urine UA Negative (Normal); Ketones Urine 3+ (Negative); Leukocyte Esterase Urine Trace (Negative); Nitrate Urine Negative (Negative); Protein Urine 1+ (Negative); Specific Gravity, Urine 1.024 (1.005-1.030); Urine Appearance Clear (CLEAR); Urine Color Dark Yellow (Yellow); pH Urine 5.5 (5-7)
[2024-10-25 17:23] LABS: Bacteria Urine None Seen /hpf; Hyaline Casts Urine 8.26 /lpf; RBC Urine 0-2 /hpf (0-2); Squamous Epithelial Cell Urine 0-5 /hpf (0-5); WBC Urine 0-5 /hpf (0-5)
[2024-10-25 17:36] LABS: Add Urine Culture? No; UA Slide Review UA Slide Review Perf
[2024-10-29 09:01] VITALS: BP 131/82; PULSE 61; RESP 17; TEMP 36.2; O2SAT 96
[2024-10-29] MEDS: sodium chlor 0.9% + KCl 20 mEq 20 MEQ/1,000 ML BAG 500 MEQ IV (09:15)
[2024-10-29] MEDS: aprepitant 130 mg/18 ml SDV IVP (10:09)
[2024-10-29 10:53] VITALS: BP 132/79; PULSE 58; RESP 16; TEMP 36.3; O2SAT 98
[2024-11-01] MEDS: ondansetron 2 mg/ML SDV 2 mL 8 MG IVP (12:19)
[2024-11-01] MEDS: sodium chlor 0.9% + KCl 20 mEq 20 MEQ/1,000 ML BAG 500 MEQ IV (12:39)
[2024-11-01 12:45] LABS: Basophils % 0.7 %; Eosinophils # 0.1 10^3/uL (0.0-0.8); Eosinophils % 1.6 %; Hematocrit 29.3 % (37-53); Lymphocytes # 0.4 10^3/uL (0.8-4.8); Lymphocytes % 6.1 %; Mean Corpuscular HGB Conc 34.5 g/dL (30-55); Mean Corpuscular Hemoglobin 31.4 pg (27-33); Mean Platelet Volume 9.6 fL (7.4-10.4); Monocytes # 0.6 10^3/uL (0.2-0.9); Monocytes % 9.2 %; Neutrophils # 4.92 10^3/uL (1.8-7.7); Neutrophils % 81.1 %; Nucleated Red Blood Cells % 0 %; Platelet Count 243 10^3/cmm (157-399); Red Blood Count 3.22 10^6/uL (3.85-5.65); Red Cell Distribution Width 13.8 % (12.1-15.1); White Blood Count 6.07 10^3/uL (3.29-11.43)
[2024-11-01 13:03] LABS: Alanine Aminotransferase 71 U/L (0-41); Albumin Level 3.4 g/dL (3.5-5.2); Alkaline Phosphatase 95 U/L (40-130); Anion Gap 19.3 (5-19); Aspartate Amino Transferase 32 U/L (0-40); Blood Urea Nitrogen 20 mg/dL (6-20); Carbon Dioxide 23 mmol/L (22-29); Chloride 97 mmol/L (98-107); Creatinine Clr Calc Pharmacy 70.8292; Globulin 2.8 g/dL (1.3-4.6); Glomerular Filtration Rate 48.6 mL/min (90-130); Glucose 110 mg/dL (65-115); Osmolality Calculated 285 mOsm/kg (285-295); Potassium 3.3 mmol/L (3.5-5.1); Sodium 136 mmol/L (136-145); Total Bilirubin 0.6 mg/dL (0.15-1.2); Total Protein 6.2 g/dL (6.6-8.7)
[2024-11-03] MEDS: ondansetron 2 mg/ML SDV 2 mL 8 MG IVP (14:22)
[2024-11-03] MEDS: sodium chlor 0.9% + KCl 20 mEq 20 MEQ/1,000 ML BAG 750 MEQ IV (14:25)
[2024-11-03 16:23] VITALS: BP 146/76; PULSE 88; RESP 16; TEMP 36.8; O2SAT 98
[2024-11-05 09:26] VITALS: BP 139/88; PULSE 104; RESP 16; TEMP 37.6; O2SAT 97
[2024-11-05] MEDS: sodium chloride 0.9% (100 ml) 100 ML 75 ML (09:37)
[2024-11-05] MEDS: ondansetron 2 mg/ML SDV 2 mL 8 MG IVP (09:39)
[2024-11-05] MEDS: famotidine 20 mg/2 mL INJ 40 MG IVP (09:43)
[2024-11-05] MEDS: dexamethasone 4 mg/mL INJ 12 MG IVP (09:48)
[2024-11-05] MEDS: sodium chlor 0.9% + KCl 20 mEq 20 MEQ/1,000 ML BAG 750 MEQ IV (10:00)
[2024-11-05 11:46] VITALS: BP 117/75; PULSE 57; RESP 17; TEMP 36.4; O2SAT 98
[2024-11-08] MEDS: ondansetron 2 mg/ML SDV 2 mL 8 MG IVP (12:44)
[2024-11-08] MEDS: dexamethasone 10 mg/mL INJ 12 MG IVP (12:49)
[2024-11-08 12:57] LABS: Basophils % 0.5 %; Eosinophils # 0.1 10^3/uL (0.0-0.8); Eosinophils % 1.6 %; Hematocrit 30.7 % (37-53); Lymphocytes # 0.7 10^3/uL (0.8-4.8); Lymphocytes % 12.1 %; Mean Corpuscular HGB Conc 33.6 g/dL (30-55); Mean Corpuscular Hemoglobin 30.6 pg (27-33); Mean Corpuscular Volume 91.1 fl (82-101); Mean Platelet Volume 9.5 fL (7.4-10.4); Monocytes # 0.6 10^3/uL (0.2-0.9); Neutrophils # 4.21 10^3/uL (1.8-7.7); Neutrophils % 75.3 %; Nucleated Red Blood Cells % 0 %; Platelet Count 288 10^3/cmm (157-399); Red Blood Count 3.37 10^6/uL (3.85-5.65); Red Cell Distribution Width 14.5 % (12.1-15.1)
[2024-11-08 13:11] LABS: D Dimer 2.04 ug/mLFEU (0-0.59)
[2024-11-08 13:14] LABS: Alanine Aminotransferase 55 U/L (0-41); Albumin Level 3.9 g/dL (3.5-5.2); Alkaline Phosphatase 85 U/L (40-130); Aspartate Amino Transferase 27 U/L (0-40); Blood Urea Nitrogen 26 mg/dL (6-20); Calcium 9.4 mg/dL (8.5-10.5); Carbon Dioxide 22 mmol/L (22-29); Chloride 95 mmol/L (98-107); Creatinine Clr Calc Pharmacy 59.0244; Glomerular Filtration Rate 39.4 mL/min (90-130); Glucose 143 mg/dL (65-115); Osmolality Calculated 291 mOsm/kg (285-295); Sodium 137 mmol/L (136-145); Total Bilirubin 0.7 mg/dL (0.15-1.2); Total Protein 6.9 g/dL (6.6-8.7)
[2024-11-08] MEDS: OLANZapine 10 mg ODT PO (14:06)
[2024-11-10 14:33] LABS: Basophils % 0.6 %; Eosinophils # 0.1 10^3/uL (0.0-0.8); Hematocrit 30.3 % (37-53); Lymphocytes # 0.5 10^3/uL (0.8-4.8); Lymphocytes % 10.3 %; Mean Corpuscular HGB Conc 33.3 g/dL (30-55); Mean Corpuscular Hemoglobin 30.8 pg (27-33); Mean Corpuscular Volume 92.4 fl (82-101); Mean Platelet Volume 9.7 fL (7.4-10.4); Monocytes # 0.5 10^3/uL (0.2-0.9); Monocytes % 10.9 %; Neutrophils # 3.77 10^3/uL (1.8-7.7); Neutrophils % 75.8 %; Nucleated Red Blood Cells % 0 %; Platelet Count 243 10^3/cmm (157-399); Red Blood Count 3.28 10^6/uL (3.85-5.65); Red Cell Distribution Width 14.8 % (12.1-15.1); White Blood Count 4.97 10^3/uL (3.29-11.43)
[2024-11-10 14:51] LABS: Alanine Aminotransferase 66 U/L (0-41); Albumin Level 3.6 g/dL (3.5-5.2); Alkaline Phosphatase 77 U/L (40-130); Anion Gap 22.5 (5-19); Aspartate Amino Transferase 32 U/L (0-40); Blood Urea Nitrogen 31 mg/dL (6-20); Calcium 9.3 mg/dL (8.5-10.5); Carbon Dioxide 22 mmol/L (22-29); Chloride 96 mmol/L (98-107); Creatinine Clr Calc Pharmacy 66.4024; Glomerular Filtration Rate 45.1 mL/min (90-130); Glucose 104 mg/dL (65-115); Osmolality Calculated 291 mOsm/kg (285-295); Potassium 3.5 mmol/L (3.5-5.1); Sodium 137 mmol/L (136-145); Total Bilirubin 0.8 mg/dL (0.15-1.2); Total Protein 6.6 g/dL (6.6-8.7)
[2024-11-10] MEDS: dexamethasone 4 mg/mL INJ 8 MG IVP (15:03)
[2024-11-10] MEDS: aprepitant 130 mg/18 ml SDV IVP (15:03)
[2024-11-10] MEDS: sodium chloride 0.9% 1,000 ML 999 ML IV (15:04)
--- NOTE | 2024-11-10 16:20 | MRR_ITS ---
PROCEDURE INFORMATION: Exam: MR Head Without and With Contrast Exam date and time: 11/10/2024 4:15 PM Age: 54 years old Clinical indication: Prior surgery; Surgery date: 6+ months; Surgery type: Appendix, port; HX of tonsil cancer. I would like to pursue a mri of the head with and without contrast for evaluation of persistent nausea vomiting 2 months post cisplatin/rt. He is also having new onset dizziness over the last 2 weeks. 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 Contrast material: MULTIHANCE; Contrast volume: 20 ml; Contrast route: INTRAVENOUS (IV); COMPARISON: MR head wo/w con [id number] 11/10/2024 4:15 PM FINDINGS: Brain: Normal. No acute infarct. No hemorrhage. No significant white matter disease. No edema. Cerebral ventricles: Normal. No ventriculomegaly. Bones: Unremarkable. Paranasal sinuses: Normal as visualized. No acute sinusitis. Mastoid air cells: Normal as visualized. No mastoid effusion. Orbital cavities: Unremarkable. Soft tissues: Unremarkable. MR/MR head wo/w con [id number] IMPRESSION: No evidence of metastatic disease to the brain.
[2024-11-10] MEDS: gadobenate dimeglumine 20 mL vial IV (16:50)
== END 2024-11-20 23:59 | disposition home or self-care (01) ==
LOC: ONCMED 16:09 → RAD 11-11 00:01 → ONCMED 11-11 09:03
PROVIDERS: Internal Medicine Medical Oncology; Nurse Practitioner; Nurse Practitioner Family; Visit Provider Radiology Radiation Oncology
DX: Z53.9 Procedure and treatment not carried out, unspecified reason; C09.8 Malignant neoplasm of overlapping sites of tonsil; I26.94 Multiple subsegmental thrombotic pulmonary emboli without acute cor pulmonale; R03.0 Elevated blood-pressure reading, without diagnosis of hypertension; E87.6 Hypokalemia; R13.10 Dysphagia, unspecified; N28.9 Disorder of kidney and ureter, unspecified; Z79.899 Other long term (current) drug therapy; Z79.52 Long term (current) use of systemic steroids
CPT/HCPCS: 70553; 71046; 80053; 81001; 85025; 85378; 86850; 86900; 96360; 96361; 96365; 96366; 96374; 96375; 99213; 99214; J0185; J1100; J2405; J3480; J3490; J7030; J7040; J9999

== ENCOUNTER 2024-11-10 17:12 | Emergency (ER) | payer OTHER, SELFPAY ==
[2024-11-10 17:19] VITALS: BP 119/81; PULSE 82; RESP 16; TEMP 36.4; O2SAT 99
--- NOTE | 2024-11-10 17:39 | W.ED.GENADLT ---
HPI - General Adult General: Chief complaint: General Medical Stated complaint: port deactivation Time Seen by Provider: 11/10/24 17:32 Source: patient Mode of arrival: wheelchair Limitations: no limitations History of Present Illness: 54yo male presents to have his port de-accessed. States he was seen in oncology earlier for an infusion, then went to MRI where they used the port, but the scan was completed after oncology had left for the day. He presented to the emergency department to have his port de-accessed. He denies any other concerns at this time. Associated symptoms: Deny chest pain or dyspnea Related Data Home Medications ?Medication ?Instructions ?Recorded ?Confirmed cholecalciferol (vitamin D3) 50 50 mcg PO DAILY Vitamin D 07/27/24 11/10/24 mcg (2,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 duloxetine 20 mg capsule,delayed 20 mg PO DAILY Depression 07/27/24 11/10/24 release sprinkle fluticasone propionate 50 50 mcg intranasal DAILY Chronic 07/27/24 11/10/24 mcg/actuation nasal Rinitis spray,suspension Previous Rx's ?Medication ?Instructions ?Recorded cpap auto titrating machine #1 ea 09/07/21 ondansetron 8 mg disintegrating [address] induced nausea #30 08/31/24 tablet tabs hydrocodone 10 mg-acetaminophen 15 ml PO Q6H PRN pain 2 weeks #473 09/01/24 325 mg/15 mL oral solution mL oxycodone 10 mg tablet 10 mg PO Q6H PRN pain 30 days #120 09/01/24 tabs potassium chloride 8 mEq 8 meq PO BID 30 days #60 caps 09/16/24 capsule,extended release amoxicillin 400 mg-potassium 10 ml PO BID #200 mL 11/01/24 clavulanate 57 mg/5 mL oral suspension apixaban 5 mg tablet (Eliquis) 5 mg PO BID #44 tabs 11/08/24 olanzapine 5 mg tablet 5 mg PO DAILY 4 days #8 tabs 11/08/24 Allergies Allergy/AdvReac Type Severity Reaction Status Date / Time allopurinol Allergy Intermediate ALGY-Rash Verified 11/10/24 15:54 Review of Systems Card: Denies: chest pain Resp: Denies: dyspnea [facility] ED PFSH: Medical History Morbid obesity Benign essential HTN Severe sleep apnea Surgical History Hx of appendectomy Family History Father Hypertension Denies family history of Diabetes CAD (coronary artery disease) Clotting disorder Dementia Chronic kidney disease (CKD) Suicide Anesthesia complication Bleeding disorder Lung disease Cancer Stroke Social History Smoking and tobacco/nicotine status: never used tobacco/nicotine Second hand smoke exposure: No Alcohol intake: never Substance/Drug Use: never Adopted: No Caregiver/support person: No Lives independently: Yes Household members: spouse Housing: House Marital status: Number of children: 3 Highest education level completed: High School Graduate service: Yes branch: [employer] Physical Exam Const: COMMON NORMALS: no acute distress, healthy appearing and alert ORIENTATION/CONSCIOUSNESS: Yes awake OTHER: Patient is sitting upright in a wheelchair in vertical flow in no acute distress. He is interactive with exam appropriately. Family is at bedside HENMT: COMMON NORMALS: normocephalic HEAD & SCALP: normocephalic Lymph: LYMPHATIC: other OTHER: right subclavian port accessed Neuro: SENSORIUM/ORIENTATION: Yes alert Course Vital Signs: Vital signs: Vital Signs Temperature 97.6 F 11/10/24 17:19 Pulse Rate 82 11/10/24 17:19 Respiratory Rate 16 11/10/24 17:19 Blood Pressure 119/81 11/10/24 17:19 Pulse Oximetry 99 11/10/24 17:19 Oxygen Delivery Me thod Room Air 11/10/24 17:19 MDM - General Adult Medical Decision Making 54yo male presents to have his port de-accessed. States he was seen in oncology earlier for an infusion, then went to MRI where they used the port, but the scan was completed after oncology had left for the day. He presented to the emergency department to have his port de-accessed. He denies any other concerns at this time. Patient is nontoxic in appearance. Vital signs are stable. Nursing to deaccess the right subclavian port. Patient denies any other concerns. Encourage patient to follow-up with oncology, chart review reveals appointment is scheduled on 11/16/2024. Return precautions provided. Patient and family state understanding and had no further concerns at this time. No radiology studies performed this visit Discharge Plan Discharge Patient Disposition: Home Clinical Impression: Encounter to [facility] implanted intravenous (IV) port Condition: Stable Prescriptions: No Action amoxicillin-pot clavulanate 400-57 mg/5 mL suspension for reconstitution 10 ml PO BID Qty: 200 0RF fluticasone propionate 50 mcg/actuation spray,suspension 50 mcg intranasal DAILY duloxetine 20 mg capsule, delayed rel sprinkle 20 mg PO DAILY cholecalciferol (vitamin D3) 50 mcg (2,000 unit) capsule 50 mcg PO DAILY (DME) cpap auto titrating machine See Rx Instructions .Route .MEDSUPPLY Qty: 1 0RF Rx Instructions: as directed cpap machine auto titration 5-20 with supplies ondansetron 8 mg tablet,disintegrating 8 mg PO Q8H Qty: 30 3RF hydrocodone-acetaminophen 10-325 mg/15 mL solution 15 ml PO Q6H PRN (Reason: pain) 14 Days Qty: 473 0RF oxycodone 10 mg tablet 10 mg PO Q6H PRN (Reason: pain) 30 Days Qty: 120 0RF potassium chloride 8 mEq capsule, extended release 8 meq PO BID 30 Days Qty: 60 5RF olanzapine 5 mg tablet 5 mg PO DAILY 4 Days Qty: 8 1RF Rx Instructions: 1-2 tabs once daily for up 4 days for nausea Eliquis 5 mg tablet 5 mg PO BID Qty: 44 0RF Rx Instructions: Take 2 tabs twice daily for the first 7 days followed by 1 tab twice a day Discharge Orders: Discharge ED (Routine); Ordered 11/10/24 Ordered By: Broderick Esteban Referrals: Julissa Patton FNP [Primary Care Provider, Nurse Practitioner] Discharge Diet: Usual diet Discharge Activity: Resume usual activity Print Language: Thai Coding Level of Care Code ED Conveyancer for Jimbo Mitchell
== END 2024-11-10 17:48 | disposition home or self-care (01) ==
PROVIDERS: Emergency Provider Nurse Practitioner; PCP Nurse Practitioner
DX: Z45.2 Encounter for adjustment and management of vascular access device (principal)
CPT/HCPCS: 96374; 99284; J1642

== ENCOUNTER 2024-11-14 14:10 | Inpatient (IN) | payer OTHER, SELFPAY ==
[2024-11-14] VITALS (11 sets, daily range): BP systolic 112–154; BP diastolic 73–88; PULSE 50–109; RESP 15–18; TEMP 36.8; O2SAT 96–100
--- NOTE | 2024-11-14 15:12 | XRR_ITS ---
PROCEDURE INFORMATION: Exam: XR Chest Exam date and time: 11/14/2024 3:39 PM Age: 54 years old Clinical indication: Other: Weakness TECHNIQUE: Imaging protocol: Radiologic exam of the chest. Views: 1 view. COMPARISON: CT angio chest PE protcl [id number] 11/08/2024 5:43 PM FINDINGS: Tubes, catheters and devices: Right IJ Port-A-Cath tip is near the superior cavoatrial junction. Lungs: Unremarkable. No consolidation. Pleural spaces: Improving right pleural effusion. Heart/Mediastinum: Unremarkable. No cardiomegaly. Bones/joints: Unremarkable. XR/XR chest 1V portable [id number] IMPRESSION: No acute cardiopulmonary findings.
--- NOTE | 2024-11-14 15:13 | ECG_ITS ---
Movity Test Date: 2024-11-14 Pat Name: Mariano Lazaro Department: Room: Gender: Male [employer] Set Up Operator: : [id number] Requested By: Keshawn Worthington Order Number: [id number] Joleen MD: JENNIFER ABREU Measurements Intervals [place] Rate: 80 P: 17 MS: 164 QRS: -75 QRSD: 108 T: 38 QT: 433 QTc: 502 Interpretive Statements SINUS RHYTHM S1-S2-S3 PATTERN, CONSISTENT WITH PULMONARY DISEASE, RVH, OR NORMAL VARIANT INCOMPLETE RIGHT BUNDLE BRANCH BLOCK [90+ ms QRS DURATION, TERMINAL R IN V1/V2, 40+ ms S IN I/aVL/V4/V5/V6] LEFT ANTERIOR FASCICULAR BLOCK [QRS AXIS <= -45, QR IN I, RS IN II] POSSIBLE ANTERIOR MYOCARDIAL INFARCTION , OF INDETERMINATE AGE [30 ms Q WAVE IN V3/V4, OR R < 0.2 mV IN V4] No previous ECG available for comparison Electronically Signed On 11-15-2024 19:04:13 CDT by JENNIFER ABREU [email or web address]
[2024-11-14] MEDS: sodium chloride 0.9% 1,000 ML 999 ML IV ×2 (15:29→17:02)
[2024-11-14 15:38] LABS: Basophils % 0.4 %; Eosinophils # 0.1 10^3/uL (0.0-0.8); Eosinophils % 1.2 %; Hematocrit 33.8 % (37-53); Lymphocytes # 0.2 10^3/uL (0.8-4.8); Lymphocytes % 2.8 %; Mean Corpuscular HGB Conc 32.5 g/dL (30-55); Mean Corpuscular Hemoglobin 30.2 pg (27-33); Mean Corpuscular Volume 92.9 fl (82-101); Mean Platelet Volume 10.5 fL (7.4-10.4); Monocytes # 0.8 10^3/uL (0.2-0.9); Monocytes % 9.5 %; Neutrophils # 7.01 10^3/uL (1.8-7.7); Nucleated Red Blood Cells % 0.4 %; Platelet Count 249 10^3/cmm (157-399); Red Blood Count 3.64 10^6/uL (3.85-5.65); Red Cell Distribution Width 15.1 % (12.1-15.1); White Blood Count 8.24 10^3/uL (3.29-11.43)
[2024-11-14 15:58] LABS: INR 1.19 (0.8-1.2)
[2024-11-14 15:59] LABS: Partial Thromboplastin Time 33.7 SECONDS (23.9-36.7)
[2024-11-14 16:01] LABS: Lactic Sepsis W/Reflex 1.9 mmol/L (0.5-2.2)
[2024-11-14 16:03] LABS: Alanine Aminotransferase 59 U/L (0-41); Albumin Level 3.6 g/dL (3.5-5.2); Alkaline Phosphatase 98 U/L (40-130); Anion Gap 19.3 (5-19); Aspartate Amino Transferase 20 U/L (0-40); Blood Urea Nitrogen 40 mg/dL (6-20); Calcium 9.5 mg/dL (8.5-10.5); Carbon Dioxide 25 mmol/L (22-29); Chloride 95 mmol/L (98-107); Creatinine Clr Calc Pharmacy 59.3814; Globulin 3.2 g/dL (1.3-4.6); Glomerular Filtration Rate 39.4 mL/min (90-130); Glucose 145 mg/dL (65-115); Lipase 48 U/L (13-60); Magnesium 2.1 mg/dL (1.7-2.3); Osmolality Calculated 294 mOsm/kg (285-295); Potassium 3.3 mmol/L (3.5-5.1); Sodium 136 mmol/L (136-145); Total Bilirubin 0.7 mg/dL (0.15-1.2); Total Protein 6.8 g/dL (6.6-8.7)
--- NOTE | 2024-11-14 16:29 | CTR_ITS ---
PROCEDURE INFORMATION: Exam: CT Abdomen And Pelvis Without Contrast Exam date and time: 11/14/2024 4:43 PM Age: 54 years old Clinical indication: Nausea and vomiting; Prior surgery; Surgery date: 6+ months; Surgery type: Appy; Nausea; Vomiting blood TECHNIQUE: Imaging protocol: Computed tomography of the abdomen and pelvis without contrast. Radiation optimization: All CT scans at this facility use at least one of these dose optimization techniques: automated exposure control; mA and/or kV adjustment per patient size (includes targeted exams where dose is matched to clinical indication); or iterative reconstruction. COMPARISON: PT PET skull to thigh INIT [id number] 07/16/2024 9:00 AM RADIATION DOSE METRICS: Total DLP (mGy-cm): 930.59 FINDINGS: Tubes, catheters and devices: Port-A-Cath tip is in the superior cavoatrial junction. Lungs: Mild bibasilar atelectasis. Heart: Decreased attenuation of the cardiac blood pool relative to the myocardium. Diaphragm: Small sliding-type hiatal hernia. Liver: Normal. No mass. Gallbladder and biliary ducts: Layering density in the gallbladder. Pancreas: The pancreas is atrophic. No ductal dilatation. Spleen: Normal. No splenomegaly. Adrenal glands: Normal. No mass. Kidneys and ureters: Normal. No hydronephrosis. Stomach and bowel: Scattered colonic diverticula without evidence of acute diverticulitis. No bowel obstruction. Appendix: Postsurgical changes in the right lower quadrant in the region of the appendix. However, there appears to be a small appendiceal remnant. Intraperitoneal space: Unremarkable. No free air. No significant fluid collection. Vasculature: Mild atherosclerotic aortoiliac calcifications. No abdominal aortic aneurysm. Lymph nodes: Unremarkable. No enlarged lymph nodes. Urinary bladder: Unremarkable as visualized. Reproductive: Unremarkable as visualized. Bones/joints: Grade 1 anterolisthesis at L4-L5. Moderate degenerative changes at L5-S1. No acute or aggressive osseous lesion. Soft tissues: Small fat containing umbilical hernia. Small fat containing left inguinal hernia. CT/CT abdomen pelvis wo con [id number] IMPRESSION: 1. No acute findings in the abdomen/pelvis. 2. Layering density in the gallbladder may represent sludge.
[2024-11-14] MEDS: potassium chloride oral liq 20 mEq/15 mL UDC 40 MEQ PO (17:05)
[2024-11-14 17:12] LABS: Bilirubin Urine Negative (Negative); Blood Urine Negative (Negative); Glucose Urine UA Negative (Normal); Ketones Urine 1+ (Negative); Leukocyte Esterase Urine Negative (Negative); Nitrate Urine Negative (Negative); Protein Urine 1+ (Negative); Specific Gravity, Urine 1.022 (1.005-1.030); Urine Appearance Clear (CLEAR); Urine Color Yellow (Yellow)
[2024-11-14 17:13] LABS: Add Urine Microscopic? YES; Bacteria Urine None Seen /hpf; Hyaline Casts Urine 9.51 /lpf; RBC Urine 0-2 /hpf (0-2); Squamous Epithelial Cell Urine 0-5 /hpf (0-5); WBC Urine 0-5 /hpf (0-5)
--- NOTE | 2024-11-14 19:23 | ED_ITS ---
HPI - Nausea/Vomiting/Diarrhea 2 General: Chief complaint: Nausea/Vomiting/Diarrhea Stated complaint: n/v, dehydration, vomitting blood Time Seen by Provider: 11/14/24 15:11 History of Present Illness: Patient is a male with history of throat cancer who completed radiation and chemotherapy in September 2024. He presents with progressive nausea and vomiting for the past few weeks. Patient reports inability to keep down food or liquids, with episodes of hematemesis today. He was seen in the ED last Friday for IV hydration and underwent an MRI which was reported as normal. Patient attempted to take anti-nausea medication this morning but vomited approximately 30 minutes later. He has had minimal oral intake, estimated at about 8 ounces total including liquids, with immediate return of all intake. Today's episodes included cj blood, approximately 2-3 tablespoons in volume. Last oral intake was attempted this morning at 0730. Patient reports normal bowel movement yesterday and last urination this morning. He is on Eliquis which was started last Friday, but has been unable to keep down recent doses due to vomiting. Related Data Home Medications ?Medication ?Instructions ?Recorded ?Confirmed fluticasone propionate 50 50 mcg intranasal DAILY PRN 07/27/24 11/14/24 mcg/actuation nasal Chronic Rinitis spray,suspension olanzapine 5 mg tablet 5 - 10 mg PO DAILY PRN Nause a 11/14/24 11/14/24 Previous Rx's ?Medication ?Instructions ?Recorded cpap auto titrating machine #1 ea 09/07/21 amoxicillin 400 mg-potassium 10 ml PO BID #200 mL 10/21 08/17 clavulanate 57 mg/5 mL oral suspension apixaban 5 mg tablet (Eliquis) 5 mg PO BID #44 tabs Allergies Allergy/AdvReac Type Severity Reaction Status Date / Time allopurinol Allergy Intermediate ALGY-Rash Verified 11/14/24 14:29 [facility] ED 2 [facility]: Medical History Morbid obesity Benign essential HTN Severe sleep apnea Surgical History Hx of appendectomy Family History Father Hypertension Denies family history of Diabetes CAD (coronary artery disease) Clotting disorder Dementia Chronic kidney disease (CKD) Suicide Anesthesia complication Bleeding disorder Lung disease Cancer Stroke Social History Smoking and tobacco/nicotine status: never used tobacco/nicotine Second hand smoke exposure: No Alcohol intake: never Substance/Drug Use: never Adopted: No Caregiver/support person: No Lives independently: Yes Household members: spouse Housing: House Marital status: Number of children: 3 Highest education level completed: High School Graduate service: Yes branch: [employer] Physical Exam 2 Const: COMMON NORMALS: no acute distress, average body habitus, alert and well nourished GENERAL APPEARANCE: cooperative ORIENTATION/CONSCIOUSNESS: Yes awake OTHER: chronically ill appearing male, in no distress HENMT: COMMON NORMALS: normocephalic and atraumatic HEAD & SCALP: n ormocephalic and atraumatic Eye: COMMON NORMALS: conjunctivae normal CONJUNCTIVA: Yes conjunctivae normal Neck/C-Spine: GENERAL: Yes normal visual inspection Resp: COMMON NORMALS: normal respiratory effort, No retractions and No use of accessory muscles Cardio: COMMON NORMALS: regular rhythm and Peripheral pulses 2+ throughout RHYTHM: regular rhythm PERIPHERAL PULSES: Peripheral pulses 2+ throughout GI: COMMON NORMALS: Soft to palpation and non-tender PALPATION: Yes Soft to palpation Extremity: COMMON NORMALS: full ROM and no pedal edema Neuro: COMMON NORMALS: no focal motor deficits SENSORIUM/ORIENTATION: Yes alert Skin: COMMON NORMALS: no rashes or lesions noted GENERAL SKIN EXAM: no rashes or lesions noted Course 2 Vital Signs: Vital signs: Vital Signs Temperature 98.3 F 11/14/24 14:23 Pulse Rate 59 L 11/14/24 20:17 Respiratory Rate 18 11/14/24 20:17 Blood Pressure 117/74 11/14/24 20:17 Pulse Oximetry 97 11/14/24 20:17 Oxygen Delivery Me thod Room Air 11/14/24 19:55 MDM - Nausea/Vomiting/Diarrhea Medical Decision Making ROS: Constitutional: Reports weakness, denies fever GI: Positive for nausea, vomiting, hematemesis. Denies abdominal pain, diarrhea Neuro: Reports dizziness All other systems reviewed and negative MEDICATIONS AND ALLERGIES: Medications: - Eliquis (recently started) - Anti-nausea medication (specific type not specified) Allergies: None reported PAST HISTORICAL DATA: PMH: Throat cancer - completed radiation and chemotherapy September 2024 PSH: Port placement Oncologist: Dr. Rainey VITAL SIGNS: HR: 101 BP: 154/86 Temp: 98.3?F O2 Sat: 98% on room air PHYSICAL EXAM: General: Chronically ill appearing gentleman, pale, weak but in no acute distress HEENT: Dry mucous membranes Neck: Supple Respiratory: Lungs clear to auscultation Cardiovascular: Mildly tachycardic, equal pulses in all four extremities Abdomen: Soft, non-distended, no appreciable tenderness, no guarding or rebound Neuro: Grossly intact INITIAL IMPRESSION AND PLAN: Given the history and presentation, the primary working diagnosis is dehydration with hematemesis in the setting of recent throat cancer treatment. Additional considerations include treatment-related mucositis, upper GI bleeding, and medication-related bleeding (Eliquis). Plan: 1. IV fluid resuscitation with 1L normal saline 2. Laboratory studies: CBC, CMP, Magnesium, Lactic acid, Lipase, PT/INR, PTT, UA, Blood cultures x2 3. Imaging: Chest X-ray 4. Cardiac monitoring and EKG 5. Specialty consultation with Oncology and ENT TEST INTERPRETATIONS: CT Abdomen/Pelvis: No acute findings FINAL IMPRESSION: Based on all the above, my clinical impression is most compatible with dehydration and hematemesis in the setting of post-treatment complications from throat cancer therapy. The clinical picture is not currently suggestive of acute abdomen or active cardiac condition. Although other conditions were also considered, they were deemed unlikely based on the clinical information available. CLINICAL DISPOSITION: The patient's current condition is stable but requires admission for further evaluation and management. After discussion with Dr. Ibarra from oncology, patient will be admitted to the hospital service for: 1. Continued IV fluid hydration 2. ENT consultation 3. Oncology consultation 4. Possible upper endoscopy to evaluate etiology of vomiting and hematemesis Rationale for admission: Patient requires admission due to inability to maintain oral hydration, presence of hematemesis while on anticoagulation, and need for multi-specialty evaluation of underlying etiology. CASE SUMMARY: Male patient with recent completion of throat cancer treatment presents with progressive nausea, vomiting, and new onset hematemesis. Patient has been unable to maintain oral intake and was recently treated with IV fluids. Current presentation complicated by anticoagulation use and dehydration. After initial workup and consultation with oncology, patient admitted for further evaluation and management. Lab Data I reviewed the patient's lab results. 11/14/24 15:27 11/14/24 15:27 Radiology Impressions Chest X-Ray 11/14/24 15:12 IMPRESSION: No acute cardiopulmonary findings. Abdomen/Pelvis CT 11/14/24 16:29 IMPRESSION: 1. No acute findings in the abdomen/pelvis. 2. Layering density in the gallbladder may represent sludge. Laboratory Results WBC 8.24 10^3/uL (3.29-11.43) 11/14/24 15: RBC 3.64 10^6/uL (3.85-5.65) L 11/14/24 15: Hgb 11.00 g/dL (11.27-16.99) L 11/14/24 15: Hct 33.8 % (37-53) L 11/14/24 15: MCV 92.9 fl (82-101) 11/14/24 15: MCH 30.2 pg (27-33) 11/14/24 15: MCHC 32.5 g/dL (30-55) 11/14/24 15: RDW 15.1 % (12.1-15.1) 11/14/24 15: Plt Count 249 10^3/cmm (157-399) 11/14/24 15: MPV 10.5 fL (7.4-10.4) H 11/14/24 15: Neut % (Auto) 85.0 % 11/14/24 15: Lymph % (Auto) 2.8 % 11/14/24 15: [place] % (Auto) 9.5 % 11/14/24 15: Eos % (Auto) 1.2 % 11/14/24 15:27 Baso % (Auto) 0.4 % 11/14/24 15:27 Neut # (Auto) 7.01 10^3/uL (1.8-7.7) 11/14/24 15: Lymph # (Auto) 0.2 10^3/uL (0.8-4.8) L 11/14/24 15:27 [place] # (Auto) 0.8 10^3/uL (0.2-0.9) 11/14/24 15: Eos # (Auto) 0.1 10^3/uL (0.0-0.8) 11/14/24 15: Baso # (Auto) 0.0 10^3/uL (0.0-0.1) 11/14/24 15: Nucleated RBC % (auto) 0.4 % 11/14/24 15: Nucleated RBCs # 0.0 /100WBC 11/14/24 15: PT 15.90 SECONDS (12.1-14.9) H 11/14/24 15: INR 1.19 (0.8-1.2) 11/14/24 15: APTT 33.7 SECONDS (23.9-36.7) 11/14/24 15: Sodium 136 mmol/L (136-145) 11/14/24 15: Potassium 3.3 mmol/L (3.5-5.1) L 11/14/24 15: Chloride 95 mmol/L (98-107) L 11/14/24 15: Carbon Dioxide 25 mmol/L (22-29) 11/14/24 15: Anion Gap 19.3 (5-19) H 11/14/24 15: BUN 40 mg/dL (6-20) H 11/14/24 15: Creatinine 1.8 mg/dL (0.7-1.2) H 11/14/24 15: GFR Calculation 39.4 mL/min (90-130) L 11/14/24 15: Glucose 145 mg/dL (65-115) H 11/14/24 15: Calculated Osmolality 294 mOsm/kg (285-295) 11/14/24: Lactic Acid 1.9 mmol/L (0.5-2.2) 11/14/24 15: Calcium 9.5 mg/dL (8.5-10.5) 11/14/24 15: Magnesium 2.1 mg/dL (1.7-2.3) 11/14/24 15: Total Bilirubin 0.7 mg/dL (0.15-1.2) 11/14/24 15: AST 20 U/L (0-40) 11/14/24 15: ALT 59 U/L (0-41) H 11/14/24 15: Alkaline Phosphatase 98 U/L (40-130) 11/14/24 15: Total Protein 6.8 g/dL (6.6-8.7) 11/14/24 15: Albumin 3.6 g/dL (3.5-5.2) 11/14/24 15: Globulin 3.2 g/dL (1.3-4.6) 11/14/24 15:27 Lipase 48 U/L (13-60) 11/14/24 15:27 Urine Color Yellow (Yellow) 11/14/24 16:41 Urine Appearance Clear (CLEAR) 11/14/24 16:41 Urine pH 6.0 (5-7) 11/14/24 16:41 Ur Specific [place] 1.022 (1.005-1.030) 11/14/24 16:41 Urine Protein 1+ (Negative) A 11/14/24 16:41 Urine Glucose (UA) Negative (Normal) 11/14/24 16:41 Urine Ketones 1+ (Negative) H 11/14/24 16:41 Urine Blood Negative (Negative) 11/14/24 16:41 Urine Nitrate Negative (Negative) 11/14/24 16:41 Urine Bilirubin Negative (Negative) 11/14/24 16:41 Urine Urobilinogen 1.0 mg/dL (Negative) 11/14/24 16:41 Ur Leukocyte Esterase Negative (Negative) 11/14/24 16:41 Urine RBC 0-2 /hpf (0-2) 11/14/24 16:41 Urine WBC 0-5 /hpf (0-5) 11/14/24 16:41 Ur Squamous Epith Cells 0-5 /hpf (0-5) 11/14/24 16:41 Amorphous Sediment Not Reportable 11/14/24 16:41 Urine Bacteria None seen /hpf (NONE) 11/14/24 16:41 Hyaline Casts 9.51 /lpf 11/14/24 16:41 All radiology interpretation(s) finalized by discharge Discharge Plan Discharge Patient Disposition: Admitted As Inpatient Clinical Impression: Acute dehydration, Nausea & vomiting, Chronic kidney insufficiency Condition: Fair Coding Level of Care Code ED Sales Engagement Manager for Jimbo Mitchell
[2024-11-14] MEDS: prochlorperazine 10 mg/2 mL Inj IVP (19:31)
[2024-11-14] MEDS: diphenhydrAMINE 50 mg/mL SDV 1mL 25 MG IVP (19:32)
--- NOTE | 2024-11-14 22:33 | PM.HP ---
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 He felt very weak, tired and unable to take his medications. THe patient states that he has been having episodes of nausea, vomiting that is not associated with eating and does not have any patterns. FOr example, He wakes up in the morning, he feels dizzy and when he tries to get up and shower and brush his teeth etc, he vomits. When lying down and looking straight ahead, if he moves his eyes in any direction (L. or R), everything would spin and he would vomit. He states that he was prescribed an antiemetic ODT that he took. It helped initially, but it did not help his nausea/vomiting. He states that nothing worsened his nausea/vomiting. He states that he generally vomited up to 3 times a day in the last 2 weeks, but this morning, he vomitted 5-6times. He states that some days, he would feel nauseous all day, despite his antiemetic, but not vomit if he is very careful. He states that this morning, there was blood in his emesis, which had a coffee ground tinge to it initially and then progressed to bright red. He states that other times, there was no blood, but at times there may be blood in his saliva. He denies abdominal pain, diarrhea, melena, hematochezia, dysuria, hematuria, urinary urgency or frequency, He endorses constipation that resolved 2 days ago. He endorses decreased UOP, poor po intake, dysphagia and odynophagia at times, mostly clear to dark colored productive cough. In the ED, he was bradycardic. His labs were significant for hypokalemia of 3.3. His creatinine was 1.8. His CXR showed no acute findings. His CT abdomen and pelvis showed no acute findings except for potential sludge in the gallbladder. He was given 2L NS bolus total,KCl 40 mEq x 1, Benadryl 25 mg IVP x 1 and Compazine 10 mg IVP x 1 prior to admission. The ED physician consulted the oncologist, Dr. Ibarra. According to ED physician, Dr. Ibarra recommended admission of the patient, for hydration, and potential evaluation at some point by ENT. Review of Systems Const: Reports: change in appetite (poor appetite), fatigue and malaise; Denies: fever(s), chills or body aches Eyes: Reports: blurry vision ENMT: Reports: odynophagia, nasal discharge and other (dysphagia); Denies: ear or mastoid pain, ear discharge or nasal congestion Card: Denies: chest pain, palpitations, lightheadedness or syncope Resp: Reports: productive cough (clear to dark); Denies: dyspnea or wheezing GI: Reports: nausea, vomiting, hematemesis and coffee ground emesis; Denies: abdominal pain, hematochezia or melena : Denies: difficulty urinating, dysuria, urinary frequency, urinary urgency or hematuria Musc: Reports: other (no myalgias); Denies: joint pain Skin/Breast: Denies: rash or new lesions Neuro: Reports: dizziness and seizure-like activity; Denies: headache(s) Psych: Reports: anxiety and depression Endo: Denies: cold intolerance or heat intolerance Baljit/Lymph: Reports: easy bruising and easy bleeding All/Imm: Denies: food intolerance Medications/Allergies Home Medications ?Medication ?Instructions ?Recorded ?Confirmed ?Last Taken ?Type cpap auto titrating machine #1 ea 09/07/21 11/14/24 Unknown Rx fluticasone propionate 50 50 mcg intranasal DAILY PRN 07/27/24 11/14/24 08/02/24 06:00 History mcg/actuation nasal Chronic Rinitis spray,suspension amoxicillin 400 mg-potassium 10 ml PO BID #200 mL 11/01/24 11/14/24 Unknown Rx clavulanate 57 mg/5 mL oral suspension apixaban 5 mg tablet (Eliquis) 5 mg PO BID #44 tabs 11/08/24 11/14/24 11/12/24 Rx olanzapine 5 mg tablet 5 - 10 mg PO DAILY PRN Nausea 11/14/24 11/14/24 Unknown History duloxetine 20 mg capsule,delayed 20 mg PO DAILY 11/15/24 11/15/24 Unknown History release Allergies Allergy/AdvReac Type Severity Reaction Status Date / Time allopurinol Allergy Intermediate ALGY-Rash Verified 11/14/24 14:29 PFSH Acute PFSH: Medical History Morbid obesity Benign essential HTN Severe sleep apnea Surgical History Hx of appendectomy Family History Father Hypertension Denies family history of Diabetes CAD (coronary artery disease) Clotting disorder Dementia Chronic kidney disease (CKD) Suicide Anesthesia complication Bleeding disorder Lung disease Cancer Stroke Social History Smoking and tobacco/nicotine status: never used tobacco/nicotine Second hand smoke exposure: No Alcohol intake: never Substance/Drug Use: never Adopted: No Caregiver/support person: No Lives independently: Yes Household members: spouse Housing: House Marital status: Number of children: 3 Highest education level completed: High School Graduate service: Yes branch: [employer] Vitals/I&O/Wt Last Vital Signs Temp 98.3 F 11/14/24 14:23 Pulse 55 L 11/14/24 22:21 Resp 18 11/14/24 22:21 BP 118/73 11/14/24 22:21 Pulse Ox 100 11/14/24 22:21 O2 Del Method Room Air 11/14/24 19:55 11/14/24 11/14/24 11/14/24 06:59 14:59 22:59 Intake Total 1999 Balance 1999 Weight last 48 hrs Weight 113.398 kg Physical Exam Narrative: neck has acanthosis nigricans. He is bradycardic. He Constitutional: GENERAL APPEARANCE: cooperative, uncomfortable, ill appearing and frail appearing HENT: HEAD & SCALP: normocephalic and atraumatic; NOSE: external nose not normal EXTERNAL EAR: no external ears normal MOUTH: Normal oral and palatal mucosa present THROAT: posterior oropharynx normal Eye: PERRL, EOMI, normal conjunctiva b/l Neck: Acanthosis nigricans, trachea midline, No anterior neck swelling, No tracheal deviation, No tracheostomy present, no submandibular swelling, Thyroid normal , cervical ROM normal Lymph: no cervical, supraclavicular LAD Resp: no use of accessory muscles, CTAB, no w/r/r Cardio: Bradycardic, no m/r/g, or clicks. 2+ radial and DP pulses. GI: normoactive bowel sounds, non-tender, non-distended, no guarding, no rigidity, no rebound tenderness, no hepatosplenomegaly. : No Donis in place, Back/Pelvis: Deferred Extremity: No clubbing, No cyanosis and No edema Neuro: AO to person, place and time. CN normal except as noted. Normal gait present. 5/5 motor strength present throughout. Normal motor muscle tone present throughout. No tremor noted. No motor abnormalities present. No motor fasciculations present Psych: APPEARANCE: Yes grossly normal ATTITUDE: Yes calm and Yes engaged ACTIVITY/MOTOR BEHAVIOR: Yes appropriate eye contact SPEECH: Yes normal speech MOOD & AFFECT: Y sad mood, flat affect. THOUGHT PROCESS: Normal thought process present THOUGHT CONTENT: Yes Normal thought content present ATTENTION/CONCENTRATION: Yes attention grossly intact MEMORY/COGNITION: Yes memory grossly intact Data 11/15/24 03:20 11/15/24 03:20 Micro: Microbiology 11/14/24 15:25 Blood Culture - Preliminary Blood SPECIMEN COLLECTED 11/14/24 15:27 Blood Culture - Preliminary Blood SPECIMEN COLLECTED A&P Assessment and plan (1) Benign essential HTN: (2) Intractable nausea and vomiting: (3) Hypokalemia: (4) Acute dehydration: (5) Squamous cell carcinoma of left tonsil: Plan Mariano Lazaro is a 54 year old male w/ severe SYDNI on CPAP, 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 #Intractable N/V: Continue Compazine p.o. and IV as needed. #Possible Gastritis vs Neeta harrison Tear: Due to intractable N/V - PPI bolus IV given on admission, PPI IV 40mg BID started. Defer to day hospitalist to consider EGD # Dehydration: Gave another 1 L NS at 125 cc/h, and started continuous LR at 75 cc/h. #Hypokalemia: Ordered 40 mEq IV potassium. #squamous cell carcinoma of the L. tonsil s/p chemo/radiation in 09/2024: Possible outpatient ENT eval to try to identify causes of his nausea or vomiting. #hx of gout - in his R. ankle after his first round of chemo. Not on any medications #Acute respiratory failure w/ hypoxia - initially on 2L in the ED. Continue. #Recently diagnosed PE: Start full dose Lovenox IV twice daily. #Asymptomatic Bradycardia: Continue telemonitoring. Managed by Outpatient Coding Specialist outpatient. #SYNDI on CPAP but not using CPAP because of his constant n/v. Continue O2 NC at night for now given his intractable nausea vomiting. #Depression - on Duloxetine 20mg daily. Given his sad and flat affect in addition w/ his poor appetite emesis, I wonder whether this would be a good medication him. I wonder if he would not benefit from an atypical antipsychotic such as Mirtazapine. Defer to day hospitalist. #HTN: Patient is no longer hypertensive. DVT ppx: Lovenox PDMP PDMP Reviewed: Not Reviewed Attestations Medical Necessity Statement*: The patient needs to be hospitalized for greater than 2 midnights for intractable nausea vomiting Coding Level of Care Code 21727 High Time for a total of 80 minutes, includes reviewing past or interval history, examining/interviewing patient, placing orders, counseling patient/family/other support, updating patient/family/other support, discussing plan of care with staff, communicating with other healthcare providers, documenting encounter and coordinating care Other Coding Information Focused coding review requested Diagnoses Benign essential HTN I10 Intractable nausea and vomiting R11.2 Hypokalemia E87.6 Acute dehydration E86.0 Squamous cell carcinoma of left tonsil C09.9
[2024-11-15] VITALS (13 sets, daily range): BP systolic 123–194; BP diastolic 65–118; PULSE 47–115; RESP 13–17; TEMP 36.4–36.8; O2SAT 95–100
[2024-11-15] MEDS: sodium chloride 0.9% 1,000 ML 125 ML IV (01:17)
[2024-11-15] MEDS: pantoprazole 40 mg SDV 80 MG IVP (01:17)
[2024-11-15] MEDS: enoxaparin 100 mg/mL Syringe 110 MG SUBCUT ×2 (01:17→12:15)
[2024-11-15 03:57] LABS: Basophils % 0.6 %; Eosinophils # 0.2 10^3/uL (0.0-0.8); Eosinophils % 3.4 %; Lymphocytes # 0.3 10^3/uL (0.8-4.8); Lymphocytes % 6.4 %; Mean Corpuscular HGB Conc 31.4 g/dL (30-55); Mean Corpuscular Hemoglobin 30.4 pg (27-33); Mean Platelet Volume 10.5 fL (7.4-10.4); Monocytes # 0.5 10^3/uL (0.2-0.9); Monocytes % 9.5 %; Neutrophils # 4.23 10^3/uL (1.8-7.7); Nucleated Red Blood Cells % 0 %; Platelet Count 189 10^3/cmm (157-399); Red Blood Count 2.99 10^6/uL (3.85-5.65); Red Cell Distribution Width 14.8 % (12.1-15.1); White Blood Count 5.35 10^3/uL (3.29-11.43)
[2024-11-15 04:20] LABS: Alanine Aminotransferase 46 U/L (0-41); Albumin Level 3.1 g/dL (3.5-5.2); Alkaline Phosphatase 84 U/L (40-130); Anion Gap 15.4 (5-19); Aspartate Amino Transferase 16 U/L (0-40); Blood Urea Nitrogen 37 mg/dL (6-20); Calcium 8.5 mg/dL (8.5-10.5); Carbon Dioxide 26 mmol/L (22-29); Chloride 104 mmol/L (98-107); Creatinine Clr Calc Pharmacy 72.9135; Globulin 2.5 g/dL (1.3-4.6); Glomerular Filtration Rate 45.1 mL/min (90-130); Glucose 112 mg/dL (65-115); Magnesium 2.1 mg/dL (1.7-2.3); Osmolality Calculated 303 mOsm/kg (285-295); Phosphorus 2.9 mg/dL (2.5-4.5); Potassium 3.4 mmol/L (3.5-5.1); Sodium 142 mmol/L (136-145); Total Bilirubin 0.5 mg/dL (0.15-1.2); Total Protein 5.6 g/dL (6.6-8.7)
[2024-11-15] MEDS: pantoprazole 40 mg SDV IVP ×2 (05:17→17:26)
[2024-11-15] MEDS: lidocaine 1% 5 ML in potassium chloride premix 100 ML 26.25 ML IV (08:57)
[2024-11-15] MEDS: lactated ringers 1,000 ML 75 ML IV ×2 (08:58→20:55)
--- NOTE | 2024-11-15 10:39 | CTR_ITS ---
PROCEDURE INFORMATION: Exam: CT Head Without Contrast Exam date and time: 11/15/2024 11:00 AM Age: 54 years old Clinical indication: Dizziness and visual disturbance; HX of tonsillar cancer, nausea, dizziness, vision disturbances; Additional info: Assess for stroke TECHNIQUE: Imaging protocol: Computed tomography of the head without contrast. Radiation optimization: All CT scans at this facility use at least one of these dose optimization techniques: automated exposure control; mA and/or kV adjustment per patient size (includes targeted exams where dose is matched to clinical indication); or iterative reconstruction. COMPARISON: MR head wo/w con [id number] 11/10/2024 4:15 PM RADIATION DOSE METRICS: Total DLP (mGy-cm): 1134.28 FINDINGS: Brain: No intracranial mass, midline shift, acute intracranial hemorrhage, nor abnormal extra-axial fluid collections seen. Choi-white matter differentiation appears maintained. Ventricles, sulci do not appear enlarged. Cerebral ventricles: See Brain finding. Paranasal sinuses: Visualized portions paranasal sinuses included appear clear bilaterally. Mastoid air cells: Visualized portions mastoid air cells, middle ear cavities included appear clear bilaterally. Bones: No displaced, depressed skull fracture seen. Soft tissues: Unremarkable. CT/CT head wo con* [id number] IMPRESSION: No acute intracranial abnormality seen.
[2024-11-15] MEDS: meclizine 25 mg tablet PO ×2 (12:15→17:26)
--- NOTE | 2024-11-15 14:20 | P.PN_ITS ---
Subjective 2 Subjective: Overnight labs and H&P reviewed. Patient reports progressively increasing dizziness over the past several weeks. Medications: Reviewed: Yes Vitals/I&O/Wt Last Vital Signs Temp 97.6 F 11/15/24 11:29 Pulse 61 11/15/24 11:29 Resp 16 11/15/24 11:29 BP 125/77 11/15/24 11:29 Pulse Ox 100 11/15/24 11:29 O2 Del Method Room Air 11/15/24 11:29 O2 Flow Rate 2 11/15/24 02:46 11/14/24 11/15/24 11/15/24 22:59 06:59 14:59 Intake Total 1999 240 / 2240 1105 / 1105 Balance 1999 240 / 2240 1105 / 1105 Weight last 48 hrs Weight 113.398 kg Weight 113.398 kg Physical Exam 2 Narrative: General: No acute distress, AO x3 HEENT: PERRLA, pupils bilaterally equal and reactive, pallors not present Chest: Normal vesicular breath sounds, no added sounds, equal good air entry bilaterally CVS: S1-S2 regular, no murmurs, no tachycardia, no gallops, no rubs Abdomen: Soft, nontender, no organomegaly, bowel sounds present Neuro: No focal deficits, no facial deformity, AO x3, power 5/5 in all limbs Data 11/15/24 03:20 11/15/24 03:20 Micro: Microbiology 11/14/24 15:25 Blood Culture - Preliminary Blood SPECIMEN COLLECTED 11/14/24 15:27 Blood Culture - Preliminary Blood SPECIMEN COLLECTED A&P Assessment and plan (1) Benign essential HTN: (2) Intractable nausea and vomiting: (3) Hypokalemia: (4) Acute dehydration: (5) Squamous cell carcinoma of left tonsil: Plan Mariano Lazaro is a 54 year old male w/ severe SYDNI on CPAP, 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 #Intractable N/V: Continue Compazine p.o. and IV as needed. #Possible Gastritis vs Neeta harrison Tear: Due to intractable N/V - PPI bolus IV given on admission, PPI IV 40mg BID started. Defer to day hospitalist to consider EGD # Dehydration: Gave another 1 L NS at 125 cc/h, and started continuous LR at 75 cc/h. #Hypokalemia: Ordered 40 mEq IV potassium. #squamous cell carcinoma of the L. tonsil s/p chemo/radiation in 09/2024: Possible outpatient ENT eval to try to identify causes of his nausea or vomiting. #hx of gout - in his R. ankle after his first round of chemo. Not on any medications #Acute respiratory failure w/ hypoxia - initially on 2L in the ED. Continue. #Recently diagnosed PE: Start full dose Lovenox IV twice daily. #Asymptomatic Bradycardia: Continue telemonitoring. Managed by [employer] outpatient. #SYDNI on CPAP but not using CPAP because of his constant n/v. Continue O2 NC at night for now given his intractable nausea vomiting. #Depression - on Duloxetine 20mg daily. Given his sad and flat affect in addition w/ his poor appetite emesis, I wonder whether this would be a good medication him. I wonder if he would not benefit from an atypical antipsychotic such as Mirtazapine. Defer to day hospitalist. #HTN: Patient is no longer hypertensive. DVT ppx: Lovenox November 15, 2024 Patient continues to have nausea and vomiting. Currently on prochlorperazine injections. Will add Zofran and Reglan along with scopolamine patch to better assist. Continue IV fluids. Check orthostatics. Noted to have nystagmus on exam today. Suspect that patient may have vestibular dysfunction related to radiation to the head and neck area. Add meclizine 25 mg p.o. every 8 hours. PT assessment for BPPV and treatment as necessary in case of positive testing. No hematemesis or blood-tinged vomitus today. Currently anticoagulation is with Lovenox 1 mg/kg every 12 hours instead of Eliquis. Continue to hold Eliquis for now with close monitoring for any rebleed. Hemoglobin at 9.1 from 11.0. Trend H&H every 8 hours. Recent MRI from 11/10/2024 was negative for any posterior circulation stroke or other mass effect. Since symptoms have been predating that MRI, unlikely that posterior circulation stroke is currently the cause of his ongoing symptoms. Will check CT head today. PDMP PDMP Reviewed: Not Reviewed Attestations 2 Medical Necessity Statement*: Continued admission for IV fluids, check orthostatics, close monitoring of H&H. Coding Level of Care Code Acute Code for Chg Fwd Diagnoses Benign essential HTN I10 Intractable nausea and vomiting R11.2 Hypokalemia E87.6 Acute dehydration E86.0 Squamous cell carcinoma of left tonsil C09.9
[2024-11-15] MEDS: scopolamine 1 mg PATCH 1 PATCH TRANSDERMA (15:09)
[2024-11-15 15:22] LABS: Hematocrit 28.6 % (37-53)
[2024-11-15] MEDS: metoclopramide 5 mg/mL SDV 2 mL IVP (17:26)
[2024-11-15] MEDS: sennosides 8.6 mg Tablet 17.2 MG PO (20:55)
[2024-11-15 22:33] LABS: Hematocrit 28.6 % (37-53)
[2024-11-16] VITALS (13 sets, daily range): BP systolic 118–134; BP diastolic 77–87; PULSE 61–80; RESP 14–18; TEMP 36.4–37.1; O2SAT 93–97
[2024-11-16] MEDS: enoxaparin 120 mg/0.8 mL Syringe 110 MG SUBCUT ×2 (00:20→11:16)
[2024-11-16] MEDS: meclizine 25 mg tablet PO ×2 (03:24→11:16)
[2024-11-16] MEDS: pantoprazole 40 mg SDV IVP ×2 (05:26→17:00)
[2024-11-16 05:32] LABS: Basophils % 0.7 %; Eosinophils # 0.2 10^3/uL (0.0-0.8); Eosinophils % 4.6 %; Hematocrit 28.8 % (37-53); Lymphocytes # 0.4 10^3/uL (0.8-4.8); Lymphocytes % 10.3 %; Mean Corpuscular HGB Conc 31.9 g/dL (30-55); Mean Corpuscular Hemoglobin 30.1 pg (27-33); Mean Corpuscular Volume 94.1 fl (82-101); Mean Platelet Volume 10.5 fL (7.4-10.4); Monocytes # 0.5 10^3/uL (0.2-0.9); Neutrophils # 2.95 10^3/uL (1.8-7.7); Neutrophils % 72.2 %; Nucleated Red Blood Cells % 0 %; Platelet Count 198 10^3/cmm (157-399); Red Blood Count 3.06 10^6/uL (3.85-5.65); Red Cell Distribution Width 15.3 % (12.1-15.1); White Blood Count 4.09 10^3/uL (3.29-11.43)
[2024-11-16 05:49] LABS: Alanine Aminotransferase 34 U/L (0-41); Albumin Level 3.2 g/dL (3.5-5.2); Alkaline Phosphatase 90 U/L (40-130); Anion Gap 18.6 (5-19); Aspartate Amino Transferase 14 U/L (0-40); Blood Urea Nitrogen 31 mg/dL (6-20); Calcium 8.9 mg/dL (8.5-10.5); Carbon Dioxide 24 mmol/L (22-29); Chloride 106 mmol/L (98-107); Globulin 2.9 g/dL (1.3-4.6); Glomerular Filtration Rate 52.6 mL/min (90-130); Glucose 115 mg/dL (65-115); Magnesium 1.9 mg/dL (1.7-2.3); Osmolality Calculated 301 mOsm/kg (285-295); Phosphorus 2.9 mg/dL (2.5-4.5); Sodium 142 mmol/L (136-145); Total Bilirubin 0.6 mg/dL (0.15-1.2); Total Protein 6.1 g/dL (6.6-8.7)
[2024-11-16 06:10] LABS: Potassium 6.6 mmol/L (3.5-5.1)
[2024-11-16] MEDS: albuterol 2.5 mg/3 mL Neb INHALATION (08:45)
[2024-11-16 08:52] LABS: Glucose Point of Care 100 mg/dL (70-110)
[2024-11-16] MEDS: polyethylene glycol 3350 Pkt 17 gm PO (08:55)
--- NOTE | 2024-11-16 10:26 | PC.CHAP ---
Pastoral Care Encounter/Spiritual Assessment Type of Contact [] Declined hunter guide visit [] Patient/Family/Request visit [] Outpatient visit [] Follow-up visit [] Physician referral [] Code/Alert [] Routine visit [] Staff referral [] Actively dying [x] Patient sleeping [] Family support [] [] Out of room [] Palliative care [] [] Receiving care in room [] Pre-surgical visit [] Trauma [] Long length of stay [] ICU visit [] Other: Relational/Emotional Strength [] Patient feels connected with others/family/visitors/staff [] Distress [] Loneliness/isolation [] Abandonment Spirituality of Patient [] Person of Veda [] Attends Shinto of their Veda [] Believes in Prayer [] Reads Bible or Mormon materials [] There are Spiritual issues to be addressed [employer]ductor Development Technician Interventions [] Prayer [] Active listening [] Non-anxious presence [] Spiritual/emotional support [] Crisis/trauma care [] Spiritual counseling [] Bereavement support [] Provided bereavement packet [] Provided Bible/devotional materials [] Provided toy/stuffed animal, coloring book to patient or family member [] Provided Communion [] Anointing/Sherman [] Salvation [] Completed spiritual assessment [] Other: Impact on Illness or Injury [] Angry [] Fearful [] Anxious [] Often cries [] Exhaustion [] Unable to work [] Unable to attend mormon [] Unable to walk/stand [] Unable to read [] Unable to drive [] Unable to eat/drink [] Unable to sleep [] Unable to be with family [] Patient intubated [] Other: Summary Time spent with patient
[2024-11-16 11:01] LABS: Alanine Aminotransferase 35 U/L (0-41); Albumin Level 3.4 g/dL (3.5-5.2); Alkaline Phosphatase 96 U/L (40-130); Anion Gap 18.8 (5-19); Aspartate Amino Transferase 14 U/L (0-40); Blood Urea Nitrogen 32 mg/dL (6-20); Calcium 9.1 mg/dL (8.5-10.5); Carbon Dioxide 23 mmol/L (22-29); Chloride 101 mmol/L (98-107); Creatinine Clr Calc Pharmacy 72.9636; Globulin 2.7 g/dL (1.3-4.6); Glomerular Filtration Rate 45.1 mL/min (90-130); Glucose 102 mg/dL (65-115); Osmolality Calculated 295 mOsm/kg (285-295); Potassium 3.8 mmol/L (3.5-5.1); Sodium 139 mmol/L (136-145); Total Bilirubin 0.7 mg/dL (0.15-1.2); Total Protein 6.1 g/dL (6.6-8.7)
--- NOTE | 2024-11-16 11:04 | PC.NURSE ---
Pt had a critical potassium of 6.6 this morning. A repeat potassium lab draw was placed as this was a big jump for only 1 k rider given. Repeat potassium came back at 3.8. Humilin and kayexalate will not be administered. Dr. Puckett notified.
[2024-11-16] MEDS: metoclopramide 5 mg/mL SDV 2 mL IVP (12:40)
--- NOTE | 2024-11-16 15:26 | P.PN_ITS ---
Subjective 2 Subjective: Patient complained of blurred vision earlier this morning which improved after taking off the scopolamine patch. He has continued to have persistent vomiting, and proceeded to vomit his lunch. Attempted Ai's maneuver today which reproduced his nystagmus but did not have any significant improvement afterwards. Medications: Reviewed: Yes Vitals/I&O/Wt Last Vital Signs Temp 97.6 F 11/16/24 10:52 Pulse 72 11/16/24 10:52 Resp 15 11/16/24 10:52 BP 127/80 11/16/24 10:52 Pulse Ox 97 11/16/24 10:52 O2 Del Method Room Air 11/16/24 10:52 O2 Flow Rate 2 11/16/24 08:00 11/16/24 11/16/24 11/16/24 06:59 14:59 22:59 Intake Total 240 / 2241.25 897.5 / 897.5 Output Total 200 / 200 Balance 240 / 2240.25 697.5 / 697.5 Weight last 48 hrs Weight 113.568 kg Weight 113.398 kg Physical Exam 2 Narrative: General: No acute distress, AO x3 HEENT: PERRLA, pupils bilaterally equal and reactive, pallors not present Chest: Normal vesicular breath sounds, no added sounds, equal good air entry bilaterally CVS: S1-S2 regular, no murmurs, no tachycardia, no gallops, no rubs Abdomen: Soft, nontender, no organomegaly, bowel sounds present Neuro: No focal deficits, no facial deformity, AO x3, power 5/5 in all limbs Data 11/16/24 05:02 11/16/24 10:14 Micro: Microbiology 11/14/24 15:27 Blood Culture - Preliminary Blood NEGATIVE TO DATE 11/14/24 15:25 Blood Culture - Preliminary Blood NEGATIVE TO DATE A&P Assessment and plan (1) Benign essential HTN: (2) Intractable nausea and vomiting: (3) Hypokalemia: (4) Acute dehydration: (5) Squamous cell carcinoma of left tonsil: Plan Mariano Lazaro is a 54 year old male w/ severe SYDNI on CPAP, 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 #Intractable N/V: Continue Compazine p.o. and IV as needed. #Possible Gastritis vs Neeta harrison Tear: Due to intractable N/V - PPI bolus IV given on admission, PPI IV 40mg BID started. Defer to day hospitalist to consider EGD # Dehydration: Gave another 1 L NS at 125 cc/h, and started continuous LR at 75 cc/h. #Hypokalemia: Ordered 40 mEq IV potassium. #squamous cell carcinoma of the L. tonsil s/p chemo/radiation in 09/2024: Possible outpatient ENT eval to try to identify causes of his nausea or vomiting. #hx of gout - in his R. ankle after his first round of chemo. Not on any medications #Acute respiratory failure w/ hypoxia - initially on 2L in the ED. Continue. #Recently diagnosed PE: Start full dose Lovenox IV twice daily. #Asymptomatic Bradycardia: Continue telemonitoring. Managed by Auto Radio Mechanic outpatient. #SYDNI on CPAP but not using CPAP because of his constant n/v. Continue O2 NC at night for now given his intractable nausea vomiting. #Depression - on Duloxetine 20mg daily. Given his sad and flat affect in addition w/ his poor appetite emesis, I wonder whether this would be a good medication him. I wonder if he would not benefit from an atypical antipsychotic such as Mirtazapine. Defer to day hospitalist. #HTN: Patient is no longer hypertensive. DVT ppx: Lovenox November 15, 2024 Patient continues to have nausea and vomiting. Currently on prochlorperazine injections. Will add Zofran and Reglan along with scopolamine patch to better assist. Continue IV fluids. Check orthostatics. Noted to have nystagmus on exam today. Suspect that patient may have vestibular dysfunction related to radiation to the head and neck area. Add meclizine 25 mg p.o. every 8 hours. PT assessment for BPPV and treatment as necessary in case of positive testing. No hematemesis or blood-tinged vomitus today. Currently anticoagulation is with Lovenox 1 mg/kg every 12 hours instead of Eliquis. Continue to hold Eliquis for now with close monitoring for any rebleed. Hemoglobin at 9.1 from 11.0. Trend H&H every 8 hours. Recent MRI from 11/10/2024 was negative for any posterior circulation stroke or other mass effect. Since symptoms have been predating that MRI, unlikely that posterior circulation stroke is currently the cause of his ongoing symptoms. Will check CT head today. November 16, 2024 Patient had some blurred vision earlier today which improved after removal of scopolamine patch. States that nausea is mildly better however he did go on to have vomiting after taking his lunch this afternoon. Underwent PT evaluation today and had reproducible nystagmus with the Hathaway-Hallpike testing, however with Ai's maneuver did not have any significant improvement. No significant improvement with initiation of meclizine yesterday. Discussed case with neurology on-call given ongoing symptoms. Possibility include vestibular neuronitis, trial of methylprednisolone 1 g IV x 1 today. Additionally trial Ativan 1 g IV every 8 hours and assess for improvement of symptoms. If no response, trial of Haldol. PDMP PDMP Reviewed: Not Reviewed Attestations 2 Medical Necessity Statement*: continued intractable nausea and vomiting , nystagmus Coding Level of Care Code Acute Code for Chg Fwd Diagnoses Benign essential HTN I10 Intractable nausea and vomiting R11.2 Hypokalemia E87.6 Acute dehydration E86.0 Squamous cell carcinoma of left tonsil C09.9
[2024-11-16] MEDS: apixaban 5 mg Tablet PO (17:00)
[2024-11-16] MEDS: methylPREDNISolone sod succ 1,000 MG in sodium chloride 0.9% 250 ML 258 MG IV (17:00)
[2024-11-16] MEDS: sennosides 8.6 mg Tablet 17.2 MG PO (20:34)
[2024-11-17] VITALS (7 sets, daily range): BP systolic 114–134; BP diastolic 71–97; PULSE 74–85; RESP 16–18; TEMP 36.4–36.8; O2SAT 93–97
[2024-11-17] MEDS: pantoprazole 40 mg SDV IVP ×2 (06:00→16:51)
[2024-11-17 06:32] LABS: Hematocrit 29.4 % (37-53); Lymphocytes # 0.2 10^3/uL (0.8-4.8); Lymphocytes % 5.7 %; Mean Corpuscular Hemoglobin 30.5 pg (27-33); Mean Corpuscular Volume 92.5 fl (82-101); Mean Platelet Volume 10.7 fL (7.4-10.4); Monocytes # 0.1 10^3/uL (0.2-0.9); Monocytes % 1.5 %; Neutrophils # 3.59 10^3/uL (1.8-7.7); Neutrophils % 92.3 %; Nucleated Red Blood Cells % 0.5 %; Platelet Count 211 10^3/cmm (157-399); Red Blood Count 3.18 10^6/uL (3.85-5.65); White Blood Count 3.89 10^3/uL (3.29-11.43)
[2024-11-17 06:54] LABS: Alanine Aminotransferase 38 U/L (0-41); Albumin Level 3.5 g/dL (3.5-5.2); Alkaline Phosphatase 107 U/L (40-130); Anion Gap 19.1 (5-19); Aspartate Amino Transferase 17 U/L (0-40); Blood Urea Nitrogen 40 mg/dL (6-20); Calcium 9.2 mg/dL (8.5-10.5); Carbon Dioxide 23 mmol/L (22-29); Chloride 101 mmol/L (98-107); Creatinine Clr Calc Pharmacy 72.9135; Globulin 2.8 g/dL (1.3-4.6); Glomerular Filtration Rate 45.1 mL/min (90-130); Glucose 151 mg/dL (65-115); Osmolality Calculated 301 mOsm/kg (285-295); Phosphorus 3.6 mg/dL (2.5-4.5); Potassium 4.1 mmol/L (3.5-5.1); Sodium 139 mmol/L (136-145); Total Bilirubin 0.7 mg/dL (0.15-1.2); Total Protein 6.3 g/dL (6.6-8.7)
[2024-11-17] MEDS: polyethylene glycol 3350 Pkt 17 gm PO (07:24)
[2024-11-17] MEDS: duloxetine 20 mg Capsule PO (07:25)
[2024-11-17] MEDS: apixaban 5 mg Tablet PO ×2 (07:25→16:51)
--- NOTE | 2024-11-17 08:35 | MR_ITS ---
WS: [id number] MRI HEAD WITHOUT CONTRAST TECHNIQUE: Sagittal T1, T2 axial, T2 axial FLAIR, axial and coronal T1 images, axial susceptibility weighted imaging, axial diffusion weighted images, and coronal T2 images were obtained. CLINICAL INFORMATION: hemianopia COMPARISON: MRI 11/10/2024 FINDINGS: No evidence of restricted diffusion to suggest acute ischemia. Ventricular system and basal cisterns are patent. Minimal small vessel changes. Mild parenchymal volume loss. Normal posterior fossa. Normal vascular flow voids at the skull base. No extra-axial fluid collections. No evidence of mass or mass effect. Paranasal sinuses and mastoid air cells are well aerated. Normal posterior nasopharynx. Normal optic chiasm and pituitary infundibulum. Increased T2 and FLAIR signal involving the periaqueductal huitron extending into the mamillary bodies and medial thalami. Findings suspicious for Wernicke encephalopathy. Small amount of signal normality extends into the dorsal brainstem. Recommend correlation for thiamine deficiency. MR/MR head wo con* [id number] IMPRESSION: 1. Increased FLAIR signal involving the periaqueductal huitron extending into the mamillary bodies and medial thalami suspicious for Wernicke encephalopathy. Re commend clinical correlation. 2. No restricted diffusion to suggest acute ischemia. 3. No other acute findings.
--- NOTE | 2024-11-17 08:45 | PC.NURSE ---
D/C pending delivery of walker and MRI.
--- NOTE | 2024-11-17 10:15 | PC.CHAP ---
Pastoral Care Encounter/Spiritual Assessment Type of Contact [] Declined mainspring strip gauger visit [] Patient/Family/Request visit [] Outpatient visit [] Follow-up visit [] Physician referral [] Code/Alert [x] Routine visit [] Staff referral [] Actively dying [] Patient sleeping [x] Family support [] [] Out of room [] Palliative care [] [] Receiving care in room [] Pre-surgical visit [] Trauma [] Long length of stay [] ICU visit [] Other: Relational/Emotional Strength [x] Patient feels connected with others/family/visitors/staff [] Distress [] Loneliness/isolation [] Abandonment Spirituality of Patient [x] Person of Veda [] Attends Jainism of their Veda [x] Believes in Prayer [] Reads Bible or Oriental Orthodox materials [] There are Spiritual issues to be addressed [employer]nsics Analyst Interventions [x] Prayer [x] Active listening [] Non-anxious presence [x] Spiritual/emotional support [] Crisis/trauma care [] Spiritual counseling [] Bereavement support [] Provided bereavement packet [] Provided Bible/devotional materials [] Provided toy/stuffed animal, coloring book to patient or family member [] Provided Communion [] Anointing/[place] [] Salvation [x] Completed spiritual assessment [] Other: Impact on Illness or Injury [] Angry [] Fearful [] Anxious [] Often cries [] Exhaustion [] Unable to work [] Unable to attend sabianist [] Unable to walk/stand [] Unable to read [] Unable to drive [] Unable to eat/drink [] Unable to sleep [] Unable to be with family [] Patient intubated [] Other: Summary Time spent with patient 5 min
--- NOTE | 2024-11-17 11:59 | PC.NURSE ---
Dana in MRI brought pt back up to [facility] floor via wheelchair and informed this nurse that upon completing MRI, pt tripped and fell while trying to get back in the wheelchair. Pt says he hit the right side of his forehead and cheek. Noticeable red bump on forehead. Dr. Puckett notified. Dana states she is putting in an event report. Pt safely transferred back to his bed in 277-2.
[2024-11-17 14:07] LABS: Folate Level 4.3 ng/mL (4.5-32.2)
[2024-11-17 14:08] LABS: Vitamin B12 899 pg/mL (232-1245)
--- NOTE | 2024-11-17 14:15 | PC.NURSE ---
This nurse called lab at 1416 and inquired about STAT Vitamin B1 lab draw that was ordered at 1326 as IV Thiamine cannot be given until after initial lab draw per Dr. Puckett. Noemi in lab says she is on her way up to draw this now.
--- NOTE | 2024-11-17 15:42 | PM.CONSULT ---
Providers/Reason For Consult Consulting Physician/Specialty*: Dr. Puckett Reason for Consult*: Warnicke's encephalopathy Attending Physician: Zena Puckett MD Primary Care Provider: JOHN Blas History of Present Illness History of Present Illness Mariano Lazaro is a 54 year old man with persistent nausea and vomiting for the last month. He completed radiation therapy around the beginning of September and 2 weeks later he was so nauseated he could not eat. He felt dizzy. He had a MRI of his brain 11/10/2024 there was read as normal by virtual radiology but in fact shows changes consistent with early Warnicke's encephalopathy. Those changes were magnified on his MRI from today 11/17/2024. He is still nauseated. He is not hungry for anything. He is vertiginous and cannot walk. He fell getting out of the MRI scanner and bumped his head. He received a dose of prednisone yesterday and he thought it helped his vertigo a little bit but in the long run it did not. He has lost close to 70 pounds altogether. He has been getting IV hydration at oncology. He has squamous cell carcinoma of the left tonsil. The lesion was diagnosed by biopsy July 07, [address] Davis. His second dose of 6 cisplatin was given on September 06. He had renal insufficiency after the first dose of cisplatin in July. He came to oncology 10/25/2024 with nausea and vomiting 2 or 3 times a day to the point that he could not swallow medication. CT of the neck showed treatment related changes of the left tongue base and left tonsil without progression and lymphadenopathy just anterior to the sternomastoid. There was a very small right pleural effusion. He was back to oncology 11/10/2024 with continued nausea and vomiting and that day he was scheduled for an MRI. At that time he was not dizzy. The treatment plan was for cisplatin high-dose every 21 days with concurrent radiation with 2 cycles completed but next cycle not planned. No active chemotherapy planned. His radiation was completed September 22. CT angiogram of the chest completed 11/08/2024 was positive for pulmonary embolus within the right segmental and subsegmental pulmonary artery supplying the right lower lobe and right upper lobe. No sign of heart strain. Review of Systems Const: Reports: change in appetite, change in weight and malaise; Denies: fever(s) or chills Eyes: Reports: change in vision and blurry vision ENMT: Reports: throat pain and nasal discharge Card: Denies: chest pain Resp: Reports: dyspnea GI: Reports: nausea and vomiting; Denies: abdominal pain or diarrhea : Denies: flank pain or difficulty urinating Musc: Denies: back pain, extremity pain or joint stiffness Neuro: Reports: weakness in extremities, lack of coordination, difficulty walking, frequent falls, dizziness and vertigo; Denies: headache(s), numbness in extremities or confusion Psych: Denies: memory loss (He denies) Medications/Allergies Home Medications ?Medication ?Instructions ?Recorded ?Confirmed ?Last Taken ?Type cpap auto titrating machine #1 ea 09/07/21 11/14/24 Unknown Rx fluticasone propionate 50 50 mcg intranasal DAILY PRN 07/27/24 11/14/24 08/02/24 06:00 History mcg/actuation nasal Chronic Rinitis spray,suspension amoxicillin 400 mg-potassium 10 ml PO BID #200 mL 11/01/24 11/14/24 Unknown Rx clavulanate 57 mg/5 mL oral suspension apixaban 5 mg tablet (Eliquis) 5 mg PO BID #44 tabs 11/08/24 11/14/24 11/12/24 Rx olanzapine 5 mg tablet 5 - 10 mg PO DAILY PRN Nausea 11/14/24 11/14/24 Unknown History duloxetine 20 mg capsule,delayed 20 mg PO DAILY 11/15/24 11/15/24 Unknown History release meclizine 25 mg tablet 25 mg PO Q8H PRN dizziness 30 days 11/17/24 Unknown Rx #30 tabs metoclopramide HCl 5 mg tablet 5 mg PO Q8H PRN nausea and 11/17/24 Unknown Rx (Reglan) vomiting 5 days #15 tabs ondansetron 4 mg disintegrating 4 mg PO Q8H PRN nausea and 11/17/24 Unknown Rx tablet vomiting 4 days #14 tabs pantoprazole 40 mg tablet,delayed 40 mg PO BID 14 days #28 tabs 11/17/24 Unknown Rx release (Protonix) prednisone 10 mg tablet 20 mg (2 x 10 mg) PO BID 5 days 11/17/24 Unknown Rx #20 tabs Allergies Allergy/AdvReac Type Severity Reaction Status Date / Time allopurinol Allergy Intermediate ALGY-Rash Verified 11/14/24 14:29 Current Medications Generic Name Dose Route Start Last Admin Trade Name Freq PRN Reason Stop Dose Admin Apixaban 5 mg 11/16/24 18:00 11/17/24 07:25 Apixaban 5 Mg Tablet PO 5 mg BID MARTINEZ Administration Duloxetine HCl 20 mg 11/17/24 09:00 11/17/24 07:25 Duloxetine 20 Mg Capsule PO 20 mg DAILY MARTINEZ Administration Metoclopramide HCl 5 mg 11/15/24 14:26 11/16/24 12:40 Metoclopramide 5 Mg/Ml Sdv 2 Ml IVP 5 mg Q6H PRN Administration NAUSEA AND VOMITING Pantoprazole Sodium 40 mg 11/15/24 06:00 11/17/24 06:00 Pantoprazole 40 Mg Sdv IVP 40 mg Q12H MARTINEZ Administration Polyethylene Glycol 17 gm 11/15/24 09:00 11/17/24 07:24 Polyethylene Glycol 3350 Pkt 17 Gm PO 17 gm DAILY MARTINEZ Administration Senna 17.2 mg 11/15/24 21:00 11/16/24 20:34 Sennosides 8.6 Mg Tablet PO 17.2 mg BEDTIME MARTINEZ Administration PFSH Acute PFSH: Medical History Morbid obesity Benign essential HTN Severe sleep apnea Surgical History Hx of appendectomy Family History Father Hypertension Denies family history of Diabetes CAD (coronary artery disease) Clotting disorder Dementia Chronic kidney disease (CKD) Suicide Anesthesia complication Bleeding disorder Lung disease Cancer Stroke Social History Smoking and tobacco/nicotine status: never used tobacco/nicotine Second hand smoke exposure: No Alcohol intake: never Substance/Drug Use: never Adopted: No Caregiver/support person: No Lives independently: Yes Household members: spouse Housing: House Marital status: Number of children: 3 Highest education level completed: High School Graduate service: Yes branch: [employer] ([employer]) Vitals/I&O/Wt Last Vital Signs Temp 98.2 F 11/17/24 11:48 Pulse 80 11/17/24 11:48 Resp 16 11/17/24 11:48 BP 134/97 11/17/24 11:48 Pulse Ox 97 11/17/24 11:48 O2 Del Method Room Air 11/17/24 11:48 O2 Flow Rate 2 11/16/24 08:00 FiO2 21 11/16/24 20:53 11/17/24 11/17/24 11/17/24 06:59 14:59 22:59 Intake Total 480 / 1875.5 1040 / 1040 Output Total 250 / 775 400 / 400 Balance 230 / 1100.5 640 / 640 Weight last 48 hrs Weight 250 lb Weight 250 lb 6 oz Physical Exam Narrative: GENERAL: He was thin and looks a little sleepy. Pleasant and cooperative. MENTAL STATUS: He remembered 1 of 3 objects after brief distraction. He was oriented to the date. He could spell the word world backwards but could not perform serial sevens. He was able to follow complex commands. CRANIAL NERVES: He has coarse right beating nystagmus on right gaze. Full eye movements and no diplopia in primary gaze at this time. Visual brunner were not cautiously tested as the patient was sleepy. Facial movements were symmetric. MOTOR: No drift. Fine movements in the hands rapid and symmetric. He could lift each his legs off the bed and perform [id number] with mild tremor. SENSATION: Pin, touch, vibration and proprioception were intact in the four extremities distally. COORDINATION: No specific cerebellar signs DEEP TENDON REFLEXES: 2/4 throughout. Plantar response not tested GAIT: Gait not tested HEENT: He has a small abrasion on the right forehead. NECK: Not examined. CHEST: Clear to auscultation. CARDIOVASCULAR: The heart sounds were normal without murmur or gallop. Regular rate and rhythm. EXTREMITIES: No deformities Data 11/17/24 05:50 11/17/24 05:50 MRI: My impression: His findings are characteristic of Warnicke encephalopathy. His MRI from 11/10/2024 shows less dramatic but similar changes. Radiologist's impression: MRI brain 11/17/24 1. Increased FLAIR signal involving the periaqueductal huitron extending into the mamillary bodies and medial thalami suspicious for Wernicke encephalopathy. Recommend clinical correlation. 2. No restricted diffusion to suggest acute ischemia. 3. No other acute findings. Dictated By: Jim Leonard MD Signed By: Jim Leonard MD Signed Date/Time: 11/17/24 A&P Assessment and plan (1) Wernicke encephalopathy: 54-year-old man with unexplained persistent intractable nausea and vomiting now for over a month. He has lost 70 pounds very quickly. It is surprising that he has developed Warnicke's encephalopathy so quickly when his albumin has not been profoundly low, his B12 is 899 and folate is only 4.3. Thiamine is pending. He was noted to have possible sludge in his gallbladder. He needs to have endoscopy. Dr. Zena Puckett MD can consider any chronic infectious diseases that could cause his symptoms but none are forthcoming. He had a very large tonsillar tumor but that lesion has apparently receded quite a bit with radiation. I neglected to ask him about cannabis use. I have reviewed his old records and do not see any evidence of this. Because of his malignancy at such a young age is also unexplained as he did not consume alcohol or smoke cigarettes. Consider IV nutrition. It is doubtful that an NG tube would solve the problem or gastrostomy tube. I will continue to follow with you. We might try increasing olanzapine to a higher dose in the evening to increase his appetite. (2) Intractable nausea and vomiting: PDMP PDMP Reviewed: Not Reviewed Consult Attestations Medical Necessity Statement: Patient profoundly ill with rare neurologic disorder Coding Level of Care Code Acute Code for Chg Fwd Diagnoses Wernicke encephalopathy E51.2 Intractable nausea and vomiting R11.2
[2024-11-17] MEDS: thiamine 500 MG in sodium chloride 0.9% (100 ml) 100 ML 210 MG IV (16:14)
[2024-11-17] MEDS: multivitamin therapeutic Tablet 1 TAB PO (16:14)
--- NOTE | 2024-11-17 16:28 | P.PN_ITS ---
Subjective 2 Subjective: Patient continued to have persistent dizziness this morning. Additionally he reported that his vision was worse today. He reported that he could not see half of the visual field feels both on the right and the left side. He states he was also unable to read his phone. Yesterday he felt as if this had improved after removal of the scopolamine patch, however he states that this is back now. MRI of the brain was obtained due to reported hemianopia which showed concern for Wernicke's encephalopathy. Medications: Reviewed: Yes Vitals/I&O/Wt Last Vital Signs Temp 97.8 F 11/17/24 15:56 Pulse 83 11/17/24 15:56 Resp 17 11/17/24 15:56 BP 126/83 11/17/24 15:56 Pulse Ox 97 11/17/24 15:56 O2 Del Method Room Air 11/17/24 15:56 O2 Flow Rate 2 11/16/24 08:00 FiO2 21 11/16/24 20:53 11/17/24 11/17/24 11/17/24 06:59 14:59 22:59 Intake Total 480 / 1875.5 1040 / 1040 Output Total 250 / 775 400 / 400 Balance 230 / 1100.5 640 / 640 Weight last 48 hrs Weight 113.398 kg Weight 113.568 kg Physical Exam 2 Narrative: General: No acute distress, AO x3 HEENT: PERRLA, pupils bilaterally equal and reactive, pallors not present Chest: Normal vesicular breath sounds, no added sounds, equal good air entry bilaterally CVS: S1-S2 regular, no murmurs, no tachycardia, no gallops, no rubs Abdomen: Soft, nontender, no organomegaly, bowel sounds present Neuro: No focal deficits, no facial deformity, AO x3, power 5/5 in all limbs Data 11/17/24 05:50 11/17/24 05:50 A&P Assessment and plan (1) Benign essential HTN: (2) Intractable nausea and vomiting: (3) Hypokalemia: (4) Acute dehydration: (5) Squamous cell carcinoma of left tonsil: Plan Mariano Lazaro is a 54 year old male w/ severe SYDNI on CPAP, 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 #Intractable N/V: Continue Compazine p.o. and IV as needed. #Possible Gastritis vs Neeta harrison Tear: Due to intractable N/V - PPI bolus IV given on admission, PPI IV 40mg BID started. Defer to day hospitalist to consider EGD # Dehydration: Gave another 1 L NS at 125 cc/h, and started continuous LR at 75 cc/h. #Hypokalemia: Ordered 40 mEq IV potassium. #squamous cell carcinoma of the L. tonsil s/p chemo/radiation in 09/2024: Possible outpatient ENT eval to try to identify causes of his nausea or vomiting. #hx of gout - in his R. ankle after his first round of chemo. Not on any medications #Acute respiratory failure w/ hypoxia - initially on 2L in the ED. Continue. #Recently diagnosed PE: Start full dose Lovenox IV twice daily. #Asymptomatic Bradycardia: Continue telemonitoring. Managed by Transformer Mechanic outpatient. #SYDNI on CPAP but not using CPAP because of his constant n/v. Continue O2 NC at night for now given his intractable nausea vomiting. #Depression - on Duloxetine 20mg daily. Given his sad and flat affect in addition w/ his poor appetite emesis, I wonder whether this would be a good medication him. I wonder if he would not benefit from an atypical antipsychotic such as Mirtazapine. Defer to day hospitalist. #HTN: Patient is no longer hypertensive. DVT ppx: Lovenox November 15, 2024 Patient continues to have nausea and vomiting. Currently on prochlorperazine injections. Will add Zofran and Reglan along with scopolamine patch to better assist. Continue IV fluids. Check orthostatics. Noted to have nystagmus on exam today. Suspect that patient may have vestibular dysfunction related to radiation to the head and neck area. Add meclizine 25 mg p.o. every 8 hours. PT assessment for BPPV and treatment as necessary in case of positive testing. No hematemesis or blood-tinged vomitus today. Currently anticoagulation is with Lovenox 1 mg/kg every 12 hours instead of Eliquis. Continue to hold Eliquis for now with close monitoring for any rebleed. Hemoglobin at 9.1 from 11.0. Trend H&H every 8 hours. Recent MRI from 11/10/2024 was negative for any posterior circulation stroke or other mass effect. Since symptoms have been predating that MRI, unlikely that posterior circulation stroke is currently the cause of his ongoing symptoms. Will check CT head today. November 16, 2024 Patient had some blurred vision earlier today which improved after removal of scopolamine patch. States that nausea is mildly better however he did go on to have vomiting after taking his lunch this afternoon. Underwent PT evaluation today and had reproducible nystagmus with the [place]-Hallpike testing, however with Ai's maneuver did not have any significant improvement. No significant improvement with initiation of meclizine yesterday. Discussed case with neurology on-call given ongoing symptoms. Possibility include vestibular neuronitis, trial of methylprednisolone 1 g IV x 1 today. Additionally trial Ativan 1 g IV every 8 hours and assess for improvement of symptoms. If no response, trial of Haldol. November 17, 2024 MRI of the brain was performed today which shows changes concerning for Warnicke's encephalopathy. He was started on thiamine 500 mg IV every 8 hours for 2 days followed by 200 mg IV every 8 hours over the next 5 days. Will assess for improvement with initiation of high-dose thiamine. vitamin B1 level was ordered, to be drawn prior to be given the first dose of IV thiamine. he was dizzy to the point of falling while getting off the MRI table and into his wheelchair. Patient did develop bruising over his right upper eyebrow as a result of the fall. Currently instructed to ice the area. No obvious bleeding noted. No laceration. Neurology consulted given the above MRI findings and persisting dizziness. PDMP PDMP Reviewed: Not Reviewed Attestations 2 Medical Necessity Statement*: Wernicke's encephalopathy as noted on MRI, start high-dose thiamine Coding Level of Care Code Acute Code for Chg Fwd Diagnoses Benign essential HTN I10 Intractable nausea and vomiting R11.2 Hypokalemia E87.6 Acute dehydration E86.0 Squamous cell carcinoma of left tonsil C09.9
[2024-11-17] MEDS: AA-Dex 8%-10% w/ lytes 1,000 ML with multivitamin inj 10 ML 23 ML IV (18:04)
[2024-11-17] MEDS: meclizine 25 mg tablet PO (21:17)
[2024-11-17] MEDS: sennosides 8.6 mg Tablet 17.2 MG PO (21:17)
[2024-11-18] VITALS (8 sets, daily range): BP systolic 95–122; BP diastolic 71–77; PULSE 50–95; RESP 16–18; TEMP 36.4–36.6; O2SAT 95–100
[2024-11-18] MEDS: thiamine 500 MG in sodium chloride 0.9% (100 ml) 100 ML 210 MG IV ×3 (00:13→17:32)
[2024-11-18] MEDS: pantoprazole 40 mg SDV IVP ×2 (05:58→17:32)
[2024-11-18 06:01] LABS: Eosinophils # 0.1 10^3/uL (0.0-0.8); Eosinophils % 0.7 %; Hematocrit 28.5 % (37-53); Lymphocytes # 0.4 10^3/uL (0.8-4.8); Mean Corpuscular HGB Conc 32.6 g/dL (30-55); Mean Corpuscular Hemoglobin 30.6 pg (27-33); Mean Corpuscular Volume 93.8 fl (82-101); Mean Platelet Volume 10.6 fL (7.4-10.4); Monocytes # 0.5 10^3/uL (0.2-0.9); Monocytes % 6.2 %; Neutrophils % 87.6 %; Nucleated Red Blood Cells % 0.5 %; Platelet Count 214 10^3/cmm (157-399); Red Blood Count 3.04 10^6/uL (3.85-5.65); Red Cell Distribution Width 15.4 % (12.1-15.1); White Blood Count 8.34 10^3/uL (3.29-11.43)
[2024-11-18 06:17] LABS: Alanine Aminotransferase 40 U/L (0-41); Albumin Level 3.4 g/dL (3.5-5.2); Alkaline Phosphatase 111 U/L (40-130); Anion Gap 16.4 (5-19); Aspartate Amino Transferase 23 U/L (0-40); Blood Urea Nitrogen 51 mg/dL (6-20); Calcium 9.3 mg/dL (8.5-10.5); Carbon Dioxide 24 mmol/L (22-29); Chloride 105 mmol/L (98-107); Creatinine Clr Calc Pharmacy 58.3308; Globulin 2.6 g/dL (1.3-4.6); Glomerular Filtration Rate 34.9 mL/min (90-130); Glucose 122 mg/dL (65-115); Osmolality Calculated 309 mOsm/kg (285-295); Potassium 3.4 mmol/L (3.5-5.1); Sodium 142 mmol/L (136-145); Total Bilirubin 0.6 mg/dL (0.15-1.2)
[2024-11-18] MEDS: duloxetine 20 mg Capsule PO (07:19)
[2024-11-18] MEDS: apixaban 5 mg Tablet PO ×2 (07:19→17:32)
[2024-11-18] MEDS: multivitamin therapeutic Tablet 1 TAB PO (07:19)
[2024-11-18] MEDS: polyethylene glycol 3350 Pkt 17 gm PO (07:19)
--- NOTE | 2024-11-18 17:29 | P.PN_ITS ---
Subjective 2 Subjective: I saw him this morning at 8 AM. He remarked that what ever Dr. Puckett put in the IV really made a big difference for him. He is feeling much better. He was feeling hungry and wanting food. Vitals/I&O/Wt Last Vital Signs Temp 97.6 F 11/18/24 15:25 Pulse 57 L 11/18/24 15:25 Resp 18 11/18/24 15:25 BP 108/73 11/18/24 15:25 Pulse Ox 100 11/18/24 15:25 O2 Del Method Room Air 11/18/24 15:25 O2 Flow Rate 2 11/16/24 08:00 FiO2 21 11/17/24 23:47 11/18/24 11/18/24 11/18/24 06:59 14:59 22:59 Intake Total 409.767 / 2034.767 563.267 / 563.267 Output Total 250 / 1500 500 / 500 Balance 159.767 / 534.767 63.267 / 63.267 Weight last 48 hrs Weight 250 lb Weight 250 lb Physical Exam 2 Narrative: Nice diagnosed markedly improved. Still a few beats of nystagmus on right gaze but otherwise his eye movements are normal. No ataxia on [id number] or [id number]. I did not take him for a walk. His reflexes are brisk throughout and toes downgoing. Data 11/18/24 05:06 11/18/24 05:06 A&P Assessment and plan (1) Wernicke encephalopathy: He has lost 70 pounds since he got cancer in June and started radiation and chemo. He insists that he was not trying to lose weight. He has been nauseated and vomiting since mid September for the last month but prior to that he was just anorexic. This is the best he has felt in a long time and he is confident that he can eat. I communicated with Dr. Puckett. His MRI findings are classic for Wernicke's. I have investigated radiation necrosis and it would not make sense for his MRI findings, nor would brainstem encephalitis or [place] syndrome. The final piece of the puzzle is his marked response to treatment with vitamin treatment and especially high-dose thiamine. He will probably be able to go back home from here. I explained to him that he will need to stay for IV thiamine and to make sure that he is eating. Physical and Occupational Therapy. (2) Intractable nausea and vomiting: The cause remains unclear. He will need to have endoscopy. PDMP PDMP Reviewed: Not Reviewed Attestations 2 Medical Necessity Statement*: Profound neurologic deterioration with multiple abnormalities on MRI Coding Level of Care Code Acute Code for Chg Fwd Diagnoses Wernicke encephalopathy E51.2 Intractable nausea and vomiting R11.2
[2024-11-18] MEDS: AA-Dex 8%-10% w/ lytes 1,000 ML with multivitamin inj 10 ML 63 ML IV (17:37)
--- NOTE | 2024-11-18 17:40 | P.PN_ITS ---
Subjective 2 Subjective: Patient is clinically better today. Creatinine at 2.0. Patient's prior baseline noted to be between 1.5-1.8. Medications: Reviewed: Yes Vitals/I&O/Wt Last Vital Signs Temp 97.6 F 11/18/24 15:25 Pulse 57 L 11/18/24 15:25 Resp 18 11/18/24 15:25 BP 108/73 11/18/24 15:25 Pulse Ox 100 11/18/24 15:25 O2 Del Method Room Air 11/18/24 15:25 O2 Flow Rate 2 11/16/24 08:00 FiO2 21 11/17/24 23:47 11/18/24 11/18/24 11/18/24 06:59 14:59 22:59 Intake Total 409.767 / 2034.767 563.267 / 563.267 481.95 / 1045.217 Output Total 250 / 1500 500 / 500 Balance 159.767 / 534.767 63.267 / 63.267 481.95 / 545.217 Weight last 48 hrs Weight 113.398 kg Weight 113.398 kg Physical Exam 2 Narrative: General: No acute distress, AO x3 HEENT: PERRLA, pupils bilaterally equal and reactive, pallors not present Chest: Normal vesicular breath sounds, no added sounds, equal good air entry bilaterally CVS: S1-S2 regular, no murmurs, no tachycardia, no gallops, no rubs Abdomen: Soft, nontender, no organomegaly, bowel sounds present Neuro: No focal deficits, no facial deformity, AO x3, power 5/5 in all limbs Data 11/18/24 05:06 11/18/24 05:06 A&P Assessment and plan (1) Benign essential HTN: (2) Intractable nausea and vomiting: (3) Hypokalemia: (4) Acute dehydration: (5) Squamous cell carcinoma of left tonsil: Plan Mariano Lazaro is a 54 year old male w/ severe SYDNI on CPAP, 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 #Intractable N/V: Continue Compazine p.o. and IV as needed. #Possible Gastritis vs Neeta harrison Tear: Due to intractable N/V - PPI bolus IV given on admission, PPI IV 40mg BID started. Defer to day hospitalist to consider EGD # Dehydration: Gave another 1 L NS at 125 cc/h, and started continuous LR at 75 cc/h. #Hypokalemia: Ordered 40 mEq IV potassium. #squamous cell carcinoma of the L. tonsil s/p chemo/radiation in 09/2024: Possible outpatient ENT eval to try to identify causes of his nausea or vomiting. #hx of gout - in his R. ankle after his first round of chemo. Not on any medications #Acute respiratory failure w/ hypoxia - initially on 2L in the ED. Continue. #Recently diagnosed PE: Start full dose Lovenox IV twice daily. #Asymptomatic Bradycardia: Continue telemonitoring. Managed by Organizational Research Consultant outpatient. #SYDNI on CPAP but not using CPAP because of his constant n/v. Continue O2 NC at night for now given his intractable nausea vomiting. #Depression - on Duloxetine 20mg daily. Given his sad and flat affect in addition w/ his poor appetite emesis, I wonder whether this would be a good medication him. I wonder if he would not benefit from an atypical antipsychotic such as Mirtazapine. Defer to day hospitalist. #HTN: Patient is no longer hypertensive. DVT ppx: Lovenox November 15, 2024 Patient continues to have nausea and vomiting. Currently on prochlorperazine injections. Will add Zofran and Reglan along with scopolamine patch to better assist. Continue IV fluids. Check orthostatics. Noted to have nystagmus on exam today. Suspect that patient may have vestibular dysfunction related to radiation to the head and neck area. Add meclizine 25 mg p.o. every 8 hours. PT assessment for BPPV and treatment as necessary in case of positive testing. No hematemesis or blood-tinged vomitus today. Currently anticoagulation is with Lovenox 1 mg/kg every 12 hours instead of Eliquis. Continue to hold Eliquis for now with close monitoring for any rebleed. Hemoglobin at 9.1 from 11.0. Trend H&H every 8 hours. Recent MRI from 11/10/2024 was negative for any posterior circulation stroke or other mass effect. Since symptoms have been predating that MRI, unlikely that posterior circulation stroke is currently the cause of his ongoing symptoms. Will check CT head today. November 16, 2024 Patient had some blurred vision earlier today which improved after removal of scopolamine patch. States that nausea is mildly better however he did go on to have vomiting after taking his lunch this afternoon. Underwent PT evaluation today and had reproducible nystagmus with the [place]-Hallpike testing, however with Ai's maneuver did not have any significant improvement. No significant improvement with initiation of meclizine yesterday. Discussed case with neurology on-call given ongoing symptoms. Possibility include vestibular neuronitis, trial of methylprednisolone 1 g IV x 1 today. Additionally trial Ativan 1 g IV every 8 hours and assess for improvement of symptoms. If no response, trial of Haldol. November 17, 2024 MRI of the brain was performed today which shows changes concerning for Warnicke's encephalopathy. He was started on thiamine 500 mg IV every 8 hours for 2 days followed by 200 mg IV every 8 hours over the next 5 days. Will assess for improvement with initiation of high-dose thiamine. vitamin B1 level was ordered, to be drawn prior to be given the first dose of IV thiamine. he was dizzy to the point of falling while getting off the MRI table and into his wheelchair. Patient did develop bruising over his right upper eyebrow as a result of the fall. Currently instructed to ice the area. No obvious bleeding noted. No laceration. Neurology consulted given the above MRI findings and persisting dizziness. November 18, 2024 Patient is clinically better today. States he is less dizzy. Appetite is better. Nystagmus is better. Likely related to starting thiamine. He is currently on TPN started because of poor p.o. intake, likely that malnutrition related to poor p.o. intake leading to his cancer diagnosis led up to the vitamin B1 deficiency resulting in Wernicke's. He has been started on TPN as of yesterday. Additionally receiving 500 mg IV every 8 hours thiamine. Patient states he would like to try to eat today. He is hesitant to remain on TPN for the long-term. He does not wish to consider a PEG just yet. Speech therapy assessment ordered for swallow eval. Started on a dysphagia 4 diet, with recommendations to advance if deemed appropriate per speech therapy evaluation. Added Ensure to meals. If patient is able to consistently tolerate oral intake for about 48 hours, we will wean off the TPN. PDMP PDMP Reviewed: Not Reviewed Attestations 2 Medical Necessity Statement*: IV thiamine needed for Wernicke's. Currently on TPN. Coding Level of Care Code Acute Code for Chg Fwd Diagnoses Benign essential HTN I10 Intractable nausea and vomiting R11.2 Hypokalemia E87.6 Acute dehydration E86.0 Squamous cell carcinoma of left tonsil C09.9
[2024-11-18] MEDS: sennosides 8.6 mg Tablet 17.2 MG PO (21:40)
[2024-11-18] MEDS: meclizine 25 mg tablet PO (21:40)
[2024-11-19] MEDS: thiamine 500 MG in sodium chloride 0.9% (100 ml) 100 ML 210 MG IV ×2 (00:36→08:36)
[2024-11-19 04:00] VITALS: BP 107/71; PULSE 76; RESP 17; TEMP 36.4; O2SAT 99
[2024-11-19] MEDS: pantoprazole 40 mg SDV IVP ×2 (06:33→17:32)
[2024-11-19] MEDS: AA-Dex 8%-10% w/ lytes 1,000 ML with multivitamin inj 10 ML 63 ML IV (06:53)
[2024-11-19 07:51] VITALS: BP 108/76; PULSE 98; RESP 15; TEMP 36.8; O2SAT 98
[2024-11-19] MEDS: polyethylene glycol 3350 Pkt 17 gm PO (08:36)
[2024-11-19] MEDS: duloxetine 20 mg Capsule PO (08:38)
[2024-11-19] MEDS: multivitamin therapeutic Tablet 1 TAB PO (08:38)
[2024-11-19] MEDS: apixaban 5 mg Tablet PO ×2 (08:38→17:32)
[2024-11-19 11:05] LABS: Alanine Aminotransferase 41 U/L (0-41); Albumin Level 3.3 g/dL (3.5-5.2); Alkaline Phosphatase 101 U/L (40-130); Anion Gap 15.3 (5-19); Aspartate Amino Transferase 21 U/L (0-40); Blood Urea Nitrogen 62 mg/dL (6-20); Carbon Dioxide 23 mmol/L (22-29); Chloride 107 mmol/L (98-107); Creatinine Clr Calc Pharmacy 67.9064; Globulin 2.3 g/dL (1.3-4.6); Glomerular Filtration Rate 42.1 mL/min (90-130); Glucose 102 mg/dL (65-115); Osmolality Calculated 312 mOsm/kg (285-295); Potassium 3.3 mmol/L (3.5-5.1); Sodium 142 mmol/L (136-145); Total Bilirubin 0.4 mg/dL (0.15-1.2); Total Protein 5.6 g/dL (6.6-8.7)
[2024-11-19 11:34] VITALS: BP 69/44; BP 97/64; BP 99/50; BP 99/70; PULSE 105; PULSE 78; PULSE 89; PULSE 98; RESP 16; TEMP 36.4; O2SAT 97
[2024-11-19] MEDS: thiamine 100 mg/mL 2mL SDV 200 MG IVP ×2 (14:45→21:13)
[2024-11-19 16:00] VITALS: BP 112/80; PULSE 83; RESP 16; TEMP 36.7; O2SAT 98
--- NOTE | 2024-11-19 16:01 | PM.PN ---
Subjective Subjective: Patient states his appetite is better. He has been able to keep his food down. He had an orthostatic drop to 69/44 and his blood pressure this morning, however states that he feels less dizzy than previously. Medications: Reviewed: Yes Vitals/I&O/Wt Last Vital Signs Temp 98.0 F 11/19/24 16:00 Pulse 83 11/19/24 16:00 Resp 16 11/19/24 16:00 BP 112/80 11/19/24 16:00 Pulse Ox 98 11/19/24 16:00 O2 Del Method Room Air 11/19/24 16:00 O2 Flow Rate 2 11/16/24 08:00 FiO2 21 11/17/24 23:47 11/19/24 11/19/24 11/19/24 06:59 14:59 22:59 Intake Total 940.8 / 2091.017 695.25 / 695.25 Output Total 175 / 175 Balance 940.8 / 1591.017 520.25 / 520.25 Weight last 48 hrs Weight 110.813 kg Weight 113.398 kg Physical Exam Narrative: General: No acute distress, AO x3 HEENT: PERRLA, pupils bilaterally equal and reactive, pallors not present Chest: Normal vesicular breath sounds, no added sounds, equal good air entry bilaterally CVS: S1-S2 regular, no murmurs, no tachycardia, no gallops, no rubs Abdomen: Soft, nontender, no organomegaly, bowel sounds present Neuro: No focal deficits, no facial deformity, AO x3, power 5/5 in all limbs Data 11/18/24 05:06 11/19/24 10:40 Micro: Microbiology 11/14/24 15:27 Blood Culture - Final Blood NO GROWTH AFTER 5 DAYS 11/14/24 15:25 Blood Culture - Final Blood NO GROWTH AFTER 5 DAYS A&P Assessment and plan (1) Benign essential HTN: (2) Intractable nausea and vomiting: (3) Hypokalemia: (4) Acute dehydration: (5) Squamous cell carcinoma of left tonsil: Plan Mariano Lazaro is a 54 year old male w/ severe SYDNI on CPAP, 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 #Intractable N/V: Continue Compazine p.o. and IV as needed. #Possible Gastritis vs Neeta harrison Tear: Due to intractable N/V - PPI bolus IV given on admission, PPI IV 40mg BID started. Defer to day hospitalist to consider EGD # Dehydration: Gave another 1 L NS at 125 cc/h, and started continuous LR at 75 cc/h. #Hypokalemia: Ordered 40 mEq IV potassium. #squamous cell carcinoma of the L. tonsil s/p chemo/radiation in 09/2024: Possible outpatient ENT eval to try to identify causes of his nausea or vomiting. #hx of gout - in his R. ankle after his first round of chemo. Not on any medications #Acute respiratory failure w/ hypoxia - initially on 2L in the ED. Continue. #Recently diagnosed PE: Start full dose Lovenox IV twice daily. #Asymptomatic Bradycardia: Continue telemonitoring. Managed by Major Assembly Lineman outpatient. #SYDNI on CPAP but not using CPAP because of his constant n/v. Continue O2 NC at night for now given his intractable nausea vomiting. #Depression - on Duloxetine 20mg daily. Given his sad and flat affect in addition w/ his poor appetite emesis, I wonder whether this would be a good medication him. I wonder if he would not benefit from an atypical antipsychotic such as Mirtazapine. Defer to day hospitalist. #HTN: Patient is no longer hypertensive. DVT ppx: Lovenox November 15, 2024 Patient continues to have nausea and vomiting. Currently on prochlorperazine injections. Will add Zofran and Reglan along with scopolamine patch to better assist. Continue IV fluids. Check orthostatics. Noted to have nystagmus on exam today. Suspect that patient may have vestibular dysfunction related to radiation to the head and neck area. Add meclizine 25 mg p.o. every 8 hours. PT assessment for BPPV and treatment as necessary in case of positive testing. No hematemesis or blood-tinged vomitus today. Currently anticoagulation is with Lovenox 1 mg/kg every 12 hours instead of Eliquis. Continue to hold Eliquis for now with close monitoring for any rebleed. Hemoglobin at 9.1 from 11.0. Trend H&H every 8 hours. Recent MRI from 11/10/2024 was negative for any posterior circulation stroke or other mass effect. Since symptoms have been predating that MRI, unlikely that posterior circulation stroke is currently the cause of his ongoing symptoms. Will check CT head today. November 16, 2024 Patient had some blurred vision earlier today which improved after removal of scopolamine patch. States that nausea is mildly better however he did go on to have vomiting after taking his lunch this afternoon. Underwent PT evaluation today and had reproducible nystagmus with the [place]-Hallpike testing, however with Ai's maneuver did not have any significant improvement. No significant improvement with initiation of meclizine yesterday. Discussed case with neurology on-call given ongoing symptoms. Possibility include vestibular neuronitis, trial of methylprednisolone 1 g IV x 1 today. Additionally trial Ativan 1 g IV every 8 hours and assess for improvement of symptoms. If no response, trial of Haldol. November 17, 2024 MRI of the brain was performed today which shows changes concerning for Warnicke's encephalopathy. He was started on thiamine 500 mg IV every 8 hours for 2 days followed by 200 mg IV every 8 hours over the next 5 days. Will assess for improvement with initiation of high-dose thiamine. vitamin B1 level was ordered, to be drawn prior to be given the first dose of IV thiamine. he was dizzy to the point of falling while getting off the MRI table and into his wheelchair. Patient did develop bruising over his right upper eyebrow as a result of the fall. Currently instructed to ice the area. No obvious bleeding noted. No laceration. Neurology consulted given the above MRI findings and persisting dizziness. November 18, 2024 Patient is clinically better today. States he is less dizzy. Appetite is better. Nystagmus is better. Likely related to starting thiamine. He is currently on TPN started because of poor p.o. intake, likely that malnutrition related to poor p.o. intake leading to his cancer diagnosis led up to the vitamin B1 deficiency resulting in Wernicke's. He has been started on TPN as of yesterday. Additionally receiving 500 mg IV every 8 hours thiamine. Patient states he would like to try to eat today. He is hesitant to remain on TPN for the long-term. He does not wish to consider a PEG just yet. Speech therapy assessment ordered for swallow eval. Started on a dysphagia 4 diet, with recommendations to advance if deemed appropriate per speech therapy evaluation. Added Ensure to meals. If patient is able to consistently tolerate oral intake for about 48 hours, we will wean off the TPN. November 19, 2024 Continue IV thiamine for Warnicke's encephalopathy. Started 200 mg IV every 8 hours dosing today. Thiamine level remains pending. Creatinine was better today at 1.7. Add midodrine 10 mg 3 times daily for orthostatic hypotension. Patient reports he is eating over 50% of the foods presented to him on plate. Will discontinue TPN once he can reliably eat. PDMP PDMP Reviewed: Not Reviewed Attestations Medical Necessity Statement*: orthostatic hypotension, need for high dose iv thiamine Coding Level of Care Code Acute Code for Chg Fwd High MDM includes number and complexity of problems actively addressed during encounter, amount and/or complexity of data reviewed/ordered and described risk of complication, morbidity or mortality of management as documented Diagnoses Benign essential HTN I10 Intractable nausea and vomiting R11.2 Hypokalemia E87.6 Acute dehydration E86.0 Squamous cell carcinoma of left tonsil C09.9
[2024-11-19] MEDS: lidocaine 1% 5 ML in potassium chloride premix 100 ML 26.25 ML IV (17:33)
[2024-11-19 20:00] VITALS: BP 98/66; PULSE 73; RESP 17; TEMP 36.5; O2SAT 98
[2024-11-19] MEDS: midodrine 5 mg TABLET 10 MG PO (21:13)
[2024-11-19] MEDS: sennosides 8.6 mg Tablet 17.2 MG PO (21:13)
[2024-11-20] VITALS (7 sets, daily range): BP systolic 96–109; BP diastolic 63–76; PULSE 56–114; RESP 16–19; TEMP 36.3–37; O2SAT 97–99
[2024-11-20] MEDS: thiamine 100 mg/mL 2mL SDV 200 MG IVP ×3 (05:20→21:19)
[2024-11-20] MEDS: pantoprazole 40 mg SDV IVP ×2 (05:20→18:19)
[2024-11-20 06:07] LABS: Basophils % 0.2 %; Eosinophils # 0.1 10^3/uL (0.0-0.8); Eosinophils % 2.7 %; Hematocrit 27.6 % (37-53); Lymphocytes # 0.5 10^3/uL (0.8-4.8); Mean Corpuscular HGB Conc 31.9 g/dL (30-55); Mean Corpuscular Hemoglobin 30.3 pg (27-33); Mean Corpuscular Volume 95.2 fl (82-101); Mean Platelet Volume 10.8 fL (7.4-10.4); Monocytes # 0.4 10^3/uL (0.2-0.9); Neutrophils % 77.5 %; Nucleated Red Blood Cells % 0 %; Platelet Count 212 10^3/cmm (157-399); Red Cell Distribution Width 15.4 % (12.1-15.1)
[2024-11-20 06:34] LABS: Alanine Aminotransferase 49 U/L (0-41); Albumin Level 3.1 g/dL (3.5-5.2); Alkaline Phosphatase 107 U/L (40-130); Anion Gap 15.6 (5-19); Aspartate Amino Transferase 26 U/L (0-40); Blood Urea Nitrogen 56 mg/dL (6-20); Calcium 8.8 mg/dL (8.5-10.5); Carbon Dioxide 21 mmol/L (22-29); Chloride 110 mmol/L (98-107); Creatinine Clr Calc Pharmacy 77.6746; Globulin 2.2 g/dL (1.3-4.6); Glomerular Filtration Rate 48.6 mL/min (90-130); Glucose 100 mg/dL (65-115); Osmolality Calculated 312 mOsm/kg (285-295); Potassium 3.6 mmol/L (3.5-5.1); Sodium 143 mmol/L (136-145); Total Bilirubin 0.4 mg/dL (0.15-1.2); Total Protein 5.3 g/dL (6.6-8.7)
[2024-11-20] MEDS: duloxetine 20 mg Capsule PO (09:39)
[2024-11-20] MEDS: apixaban 5 mg Tablet PO ×2 (09:39→18:18)
[2024-11-20] MEDS: multivitamin therapeutic Tablet 1 TAB PO (09:39)
[2024-11-20] MEDS: polyethylene glycol 3350 Pkt 17 gm PO (09:39)
[2024-11-20] MEDS: midodrine 5 mg TABLET 10 MG PO ×2 (09:40→20:15)
[2024-11-20] MEDS: sodium chloride 0.9% 500 ML 999 ML IV (13:53)
--- NOTE | 2024-11-20 19:01 | P.PN_ITS ---
Subjective 2 Subjective: Patient continues to feel better today. Orthostatics are better after initiation of midodrine. He did become tachycardic with postural change, however blood pressure drop was not as significant. Will continue midodrine for now. TPN has been weaned off, patient is tolerating an oral diet. Medications: Reviewed: Yes Vitals/I&O/Wt Last Vital Signs Temp 97.4 F L 11/20/24 15:38 Pulse 66 11/20/24 15:38 Resp 18 11/20/24 15:38 BP 109/63 11/20/24 15:38 Pulse Ox 99 11/20/24 15:38 O2 Del Method Room Air 11/20/24 15:38 O2 Flow Rate 2 11/16/24 08:00 FiO2 21 11/17/24 23:47 11/20/24 11/20/24 11/20/24 06:59 14:59 22:59 Intake Total 1160 / 1160 800 / 1960 Output Total 600 / 600 Balance 1160 / 1160 200 / 1360 Weight last 48 hrs Weight 113.081 kg Weight 110.813 kg Physical Exam 2 Narrative: General: No acute distress, AO x3 HEENT: PERRLA, pupils bilaterally equal and reactive, pallors not present Chest: Normal vesicular breath sounds, no added sounds, equal good air entry bilaterally CVS: S1-S2 regular, no murmurs, no tachycardia, no gallops, no rubs Abdomen: Soft, nontender, no organomegaly, bowel sounds present Neuro: No focal deficits, no facial deformity, AO x3, power 5/5 in all limbs Data 11/20/24 05:08 11/20/24 05:08 Micro: Microbiology 11/14/24 15:27 Blood Culture - Final Blood NO GROWTH AFTER 5 DAYS 11/14/24 15:25 Blood Culture - Final Blood NO GROWTH AFTER 5 DAYS A&P Assessment and plan (1) Benign essential HTN: (2) Intractable nausea and vomiting: (3) Hypokalemia: (4) Acute dehydration: (5) Squamous cell carcinoma of left tonsil: Plan Mariano Lazaro is a 54 year old male w/ severe SYDNI on CPAP, 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 #Intractable N/V: Continue Compazine p.o. and IV as needed. #Possible Gastritis vs Neeta harrison Tear: Due to intractable N/V - PPI bolus IV given on admission, PPI IV 40mg BID started. Defer to day hospitalist to consider EGD # Dehydration: Gave another 1 L NS at 125 cc/h, and started continuous LR at 75 cc/h. #Hypokalemia: Ordered 40 mEq IV potassium. #squamous cell carcinoma of the L. tonsil s/p chemo/radiation in 09/2024: Possible outpatient ENT eval to try to identify causes of his nausea or vomiting. #hx of gout - in his R. ankle after his first round of chemo. Not on any medications #Acute respiratory failure w/ hypoxia - initially on 2L in the ED. Continue. #Recently diagnosed PE: Start full dose Lovenox IV twice daily. #Asymptomatic Bradycardia: Continue telemonitoring. Managed by Broadcast Director Operations outpatient. #SYDNI on CPAP but not using CPAP because of his constant n/v. Continue O2 NC at night for now given his intractable nausea vomiting. #Depression - on Duloxetine 20mg daily. Given his sad and flat affect in addition w/ his poor appetite emesis, I wonder whether this would be a good medication him. I wonder if he would not benefit from an atypical antipsychotic such as Mirtazapine. Defer to day hospitalist. #HTN: Patient is no longer hypertensive. DVT ppx: Lovenox November 15, 2024 Patient continues to have nausea and vomiting. Currently on prochlorperazine injections. Will add Zofran and Reglan along with scopolamine patch to better assist. Continue IV fluids. Check orthostatics. Noted to have nystagmus on exam today. Suspect that patient may have vestibular dysfunction related to radiation to the head and neck area. Add meclizine 25 mg p.o. every 8 hours. PT assessment for BPPV and treatment as necessary in case of positive testing. No hematemesis or blood-tinged vomitus today. Currently anticoagulation is with Lovenox 1 mg/kg every 12 hours instead of Eliquis. Continue to hold Eliquis for now with close monitoring for any rebleed. Hemoglobin at 9.1 from 11.0. Trend H&H every 8 hours. Recent MRI from 11/10/2024 was negative for any posterior circulation stroke or other mass effect. Since symptoms have been predating that MRI, unlikely that posterior circulation stroke is currently the cause of his ongoing symptoms. Will check CT head today. November 16, 2024 Patient had some blurred vision earlier today which improved after removal of scopolamine patch. States that nausea is mildly better however he did go on to have vomiting after taking his lunch this afternoon. Underwent PT evaluation today and had reproducible nystagmus with the [place]-Hallpike testing, however with Ai's maneuver did not have any significant improvement. No significant improvement with initiation of meclizine yesterday. Discussed case with neurology on-call given ongoing symptoms. Possibility include vestibular neuronitis, trial of methylprednisolone 1 g IV x 1 today. Additionally trial Ativan 1 g IV every 8 hours and assess for improvement of symptoms. If no response, trial of Haldol. November 17, 2024 MRI of the brain was performed today which shows changes concerning for Warnicke's encephalopathy. He was started on thiamine 500 mg IV every 8 hours for 2 days followed by 200 mg IV every 8 hours over the next 5 days. Will assess for improvement with initiation of high-dose thiamine. vitamin B1 level was ordered, to be drawn prior to be given the first dose of IV thiamine. he was dizzy to the point of falling while getting off the MRI table and into his wheelchair. Patient did develop bruising over his right upper eyebrow as a result of the fall. Currently instructed to ice the area. No obvious bleeding noted. No laceration. Neurology consulted given the above MRI findings and persisting dizziness. November 18, 2024 Patient is clinically better today. States he is less dizzy. Appetite is better. Nystagmus is better. Likely related to starting thiamine. He is currently on TPN started because of poor p.o. intake, likely that malnutrition related to poor p.o. intake leading to his cancer diagnosis led up to the vitamin B1 deficiency resulting in Wernicke's. He has been started on TPN as of yesterday. Additionally receiving 500 mg IV every 8 hours thiamine. Patient states he would like to try to eat today. He is hesitant to remain on TPN for the long-term. He does not wish to consider a PEG just yet. Speech therapy assessment ordered for swallow eval. Started on a dysphagia 4 diet, with recommendations to advance if deemed appropriate per speech therapy evaluation. Added Ensure to meals. If patient is able to consistently tolerate oral intake for about 48 hours, we will wean off the TPN. November 19, 2024 Continue IV thiamine for Warnicke's encephalopathy. Started 200 mg IV every 8 hours dosing today. Thiamine level remains pending. Creatinine was better today at 1.7. Add midodrine 10 mg 3 times daily for orthostatic hypotension. Patient reports he is eating over 50% of the foods presented to him on plate. Will discontinue TPN once he can reliably eat. nov 20 2024 Continue IV thiamine. Completing 5 days of IV thiamine tomorrow. Will recheck thiamine level posttreatment. Pretreatment thiamine level remains pending at this time. Creatinine is improving at 1.5. Orthostatics better with addition of midodrine which we will continue for today. TPN has been discontinued. Patient currently tolerating oral diet. States his visual symptoms are nearly resolved. PDMP PDMP Reviewed: Not Reviewed Attestations 2 Medical Necessity Statement*: Day 4 of 5 of high-dose IV thiamine treatment. Continue to check orthostatics. Anticipate discharge in the upcoming 24 hours if continues to feel improved. Coding Level of Care Code Acute Code for Chg Fwd Diagnoses Benign essential HTN I10 Intractable nausea and vomiting R11.2 Hypokalemia E87.6 Acute dehydration E86.0 Squamous cell carcinoma of left tonsil C09.9
[2024-11-20] MEDS: sennosides 8.6 mg Tablet 17.2 MG PO (20:15)
[2024-11-21] VITALS (8 sets, daily range): BP systolic 78–131; BP diastolic 50–77; PULSE 53–108; RESP 16–18; TEMP 36.4–36.7; O2SAT 95–99
[2024-11-21 03:15] LABS: Basophils % 0.5 %; Eosinophils # 0.1 10^3/uL (0.0-0.8); Eosinophils % 3.5 %; Hematocrit 25.5 % (37-53); Lymphocytes # 0.5 10^3/uL (0.8-4.8); Lymphocytes % 12.5 %; Mean Corpuscular HGB Conc 31.8 g/dL (30-55); Mean Corpuscular Hemoglobin 30.3 pg (27-33); Mean Corpuscular Volume 95.5 fl (82-101); Mean Platelet Volume 10.8 fL (7.4-10.4); Monocytes # 0.4 10^3/uL (0.2-0.9); Neutrophils # 2.88 10^3/uL (1.8-7.7); Neutrophils % 71.8 %; Nucleated Red Blood Cells % 0 %; Platelet Count 182 10^3/cmm (157-399); Red Blood Count 2.67 10^6/uL (3.85-5.65); Red Cell Distribution Width 15.6 % (12.1-15.1); White Blood Count 4.01 10^3/uL (3.29-11.43)
[2024-11-21 04:23] LABS: Alanine Aminotransferase 51 U/L (0-41); Albumin Level 2.9 g/dL (3.5-5.2); Alkaline Phosphatase 99 U/L (40-130); Aspartate Amino Transferase 25 U/L (0-40); Blood Urea Nitrogen 46 mg/dL (6-20); Calcium 8.4 mg/dL (8.5-10.5); Carbon Dioxide 24 mmol/L (22-29); Creatinine Clr Calc Pharmacy 77.6746; Glomerular Filtration Rate 48.6 mL/min (90-130); Glucose 99 mg/dL (65-115); Total Bilirubin 0.3 mg/dL (0.15-1.2); Total Protein 4.9 g/dL (6.6-8.7)
[2024-11-21] MEDS: pantoprazole 40 mg SDV IVP (05:20)
[2024-11-21] MEDS: thiamine 100 mg/mL 2mL SDV 200 MG IVP ×2 (05:20→14:02)
[2024-11-21 05:51] LABS: Anion Gap 11.4 (5-19); Chloride 108 mmol/L (98-107); Osmolality Calculated 302 mOsm/kg (285-295); Potassium 3.4 mmol/L (3.5-5.1); Sodium 140 mmol/L (136-145)
[2024-11-21] MEDS: polyethylene glycol 3350 Pkt 17 gm PO (08:18)
[2024-11-21] MEDS: midodrine 5 mg TABLET 10 MG PO ×2 (08:18→14:02)
[2024-11-21] MEDS: duloxetine 20 mg Capsule PO (08:18)
[2024-11-21] MEDS: multivitamin therapeutic Tablet 1 TAB PO (08:18)
[2024-11-21] MEDS: apixaban 5 mg Tablet PO (08:18)
[2024-11-21] MEDS: albumin 25 G/100 ML BAG 60 G IV (09:50)
[2024-11-21] MEDS: sodium chloride 0.9% 500 ML 999 ML IV (09:50)
[2024-11-21] MEDS: thiamine 500 MG in sodium chloride 0.9% (100 ml) 100 ML 210 MG IV (09:51)
[2024-11-21] MEDS: potassium chloride ER 20 mEq Tablet 40 MEQ PO (09:51)
--- NOTE | 2024-11-21 14:22 | PC.NURSE ---
Patient's port was de-accessed. Patient tolerated well. Patient is A&Ox3. Respirations even and non-labored on room air. Patient was discharged at this time.
--- NOTE | 2024-11-21 16:26 | PM.DCS ---
Discharge Providers Date of Admission: 11/14/24 21:16 Date of Discharge: November 21, 2024 Attending Provider at Admission: Tahira Mendez MD Attending Provider at Discharge: Zena Puckett MD Primary Care Provider: JOHN Blas Diagnoses at Discharge Discharge Diagnosis (1) Benign essential HTN: Status: Chronic (2) Intractable nausea and vomiting: Status: Acute (3) Hypokalemia: Status: Acute (4) Acute dehydration: Status: Acute (5) Squamous cell carcinoma of left tonsil: Status: Acute Reason for Visit Reason for Visit: n/v, dehydration, vomiting blood Hospital Course Hospital Course Mariano Lazaro is a 54 year old male w/ severe SYDNI on CPAP, 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 He reported dizziness and was found to have a nystagmus on physical exam. He was dizzy to the point of having taken a fall and attempting to get out of bed. He reported having had very poor p.o. intake since his radiation in September and estimated that he had only been eating pudding and ice pops for over 2 weeks consistently. Initially there was concern for hematemesis, however there was no recurrence during hospital course. Since his recent MRI from 02/10/2025 had been reported normal, chief concern upon initial presentation was that of vestibular disorder. Meclizine, and Ai's maneuver did not relieve his symptoms. He started also complaining of hemianopia therefore repeat MRI of the brain was performed on this admission on November 17, 2024 which showed characteristic changes of Wernicke's encephalopathy. With these findings he started treatment with high-dose IV intravenously, initially has 500 mg IV every 8 hours for 2 days followed by 200 mg IV every 8 hours subsequently. With initiation of high-dose thiamine patient's symptoms improved rapidly. His nystagmus resolved. His visual changes also resolved. He is able to see normally again. His dizziness is much improved however he is noted to have orthostatic hypotension which is likely contributing. He was started on midodrine 10 mg 3 times daily with improved hemodynamics. Also provided with compression stockings and is recommended to follow-up with primary care physician for customized stockings. He is able to tolerate a diet since his nausea is now completely resolved. He was eating 50 to 75% of all meals provided and drinking Ensure. 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 intake from radiation therapy. Overall patient is clinically much improved and being discharged home in stable to improved condition with recommendation to continue thiamine supplementation Physical Exam Narrative: General: No acute distress, AO x3 HEENT: PERRLA, pupils bilaterally equal and reactive, pallors not present Chest: Normal vesicular breath sounds, no added sounds, equal good air entry bilaterally CVS: S1-S2 regular, no murmurs, no tachycardia, no gallops, no rubs Abdomen: Soft, nontender, no organomegaly, bowel sounds present Neuro: No focal deficits, no facial deformity, AO x3, power 5/5 in all limbs Discharge Data Studies Completed and Pending Completed Studies During Hospitalization Category Date Time Status CT abdomen pelvis wo con [id number] Stat Cat Scan 11/14/24 16:[address] head wo con* [id number] Urgent Cat Scan 11/15/24 10:39 Completed XR chest 1V portable [id number] Stat Exams 11/14/24 15:12 Completed MR head wo con* [id number] Routine MRI 11/17/24 08:35 Completed Pending at discharge Category Date Time Status Ganglioside GQ1b Antibody IgG Routine Lab 11/18/24 05:06 Received Vitamin B1 (Thiamine),Blood Stat Lab 11/17/24 14:27 Received Radiology Impressions Chest X-Ray 11/14/24 15:12 IMPRESSION: No acute cardiopulmonary findings. Abdomen/Pelvis CT 11/14/24 16:29 IMPRESSION: 1. No acute findings in the abdomen/pelvis. 2. Layering density in the gallbladder may represent sludge. Head CT 11/15/24 10:39 IMPRESSION: No acute intracranial abnormality seen. Head MRI 11/17/24 08:35 IMPRESSION: 1. Increased FLAIR signal involving the periaqueductal huitron extending into the mamillary bodies and medial thalami suspicious for Wernicke encephalopathy. Recommend clinical correlation. 2. No restricted diffusion to suggest acute ischemia. 3. No other acute findings. Laboratory Results WBC 4.01 10^3/uL (3.29-11.43) 11/21/24 02:56 RBC 2.67 10^6/uL (3.85-5.65) L 11/21/24 02:56 Hgb 8.10 g/dL (11.27-16.99) L 11/21/24 02:56 Hct 25.5 % (37-53) L 11/21/24 02:56 MCV 95.5 fl (82-101) 11/21/24 02:56 MCH 30.3 pg (27-33) 11/21/24 02:56 MCHC 31.8 g/dL (30-55) 11/21/24 02:56 RDW 15.6 % (12.1-15.1) H 11/21/24 02:56 Plt Count 182 10^3/cmm (157-399) 11/21/24 02:56 MPV 10.8 fL (7.4-10.4) H 11/21/24 02:56 Neut % (Auto) 71.8 % 11/21/24 02:56 Lymph % (Auto) 12.5 % 11/21/24 02:56 [place] % (Auto) 10.0 % 11/21/24 02:56 Eos % (Auto) 3.5 % 11/21/24 02:56 Baso % (Auto) 0.5 % 11/21/24 02:56 Neut # (Auto) 2.88 10^3/uL (1.8-7.7) 11/21/24 02:56 Lymph # (Auto) 0.5 10^3/uL (0.8-4.8) L 11/21/24 02:56 [place] # (Auto) 0.4 10^3/uL (0.2-0.9) 11/21/24 02:56 Eos # (Auto) 0.1 10^3/uL (0.0-0.8) 11/21/24 02:56 Baso # (Auto) 0.0 10^3/uL (0.0-0.1) 11/21/24 02:56 Nucleated RBC % (auto) 0 % 11/21/24 02:56 Nucleated RBCs # 0.0 /100WBC 11/21/24 02:56 PT 15.90 SECONDS (12.1-14.9) H 11/14/24 15:27 INR 1.19 (0.8-1.2) 11/14/24 15:27 APTT 33.7 SECONDS (23.9-36.7) 11/14/24 15:27 Sodium 140 mmol/L (136-145) 11/21/24 02:56 Potassium 3.4 mmol/L (3.5-5.1) L 11/21/24 02:56 Chloride 108 mmol/L (98-107) H 11/21/24 02:56 Carbon Dioxide 24 mmol/L (22-29) 11/21/24 02:56 Anion Gap 11.4 (5-19) 11/21/24 02:56 BUN 46 mg/dL (6-20) H 11/21/24 02:56 Creatinine 1.5 mg/dL (0.7-1.2) H 11/21/24 02:56 GFR Calculation 48.6 mL/min (90-130) L 11/21/24 02:56 Glucose 99 mg/dL (65-115) 11/21/24 02:56 POC Glucose 100 mg/dL (70-110) 11/16/24 08:48 Calculated Osmolality 302 mOsm/kg (285-295) H 11/21/24 02:56 Lactic Acid 1.9 mmol/L (0.5-2.2) 11/14/24 15:27 Calcium 8.4 mg/dL (8.5-10.5) L 11/21/24 02:56 Phosphorus 3.6 mg/dL (2.5-4.5) 11/17/24 05:50 Magnesium 2.0 mg/dL (1.7-2.3) 11/17/24 05:50 Total Bilirubin 0.3 mg/dL (0.15-1.2) 11/21/24 02:56 AST 25 U/L (0-40) 11/21/24 02:56 ALT 51 U/L (0-41) H 11/21/24 02:56 Alkaline Phosphatase 99 U/L (40-130) 11/21/24 02:56 Total Protein 4.9 g/dL (6.6-8.7) L 11/21/24 02:56 Albumin 2.9 g/dL (3.5-5.2) L 11/21/24 02:56 Globulin 2.0 g/dL (1.3-4.6) 11/21/24 02:56 Lipase 48 U/L (13-60) 11/14/24 15:27 Vitamin B12 899 pg/mL (232-1245) 11/17/24 05:50 Folate 4.3 ng/mL (4.5-32.2) L 11/17/24 05:50 Urine Color Yellow (Yellow) 11/14/24 16:41 Urine Appearance Clear (CLEAR) 11/14/24 16:41 Urine pH 6.0 (5-7) 11/14/24 16:41 Ur Specific [place] 1.022 (1.005-1.030) 11/14/24 16:41 Urine Protein 1+ (Negative) A 11/14/24 16:41 Urine Glucose (UA) Negative (Normal) 11/14/24 16:41 Urine Ketones 1+ (Negative) H 11/14/24 16:41 Urine Blood Negative (Negative) 11/14/24 16:41 Urine Nitrate Negative (Negative) 11/14/24 16:41 Urine Bilirubin Negative (Negative) 11/14/24 16:41 Urine Urobilinogen 1.0 mg/dL (Negative) 11/14/24 16:41 Ur Leukocyte Esterase Negative (Negative) 11/14/24 16:41 Urine RBC 0-2 /hpf (0-2) 11/14/24 16:41 Urine WBC 0-5 /hpf (0-5) 11/14/24 16:41 Ur Squamous Epith Cells 0-5 /hpf (0-5) 11/14/24 16:41 Amorphous Sediment Not Reportable 11/14/24 16:41 Urine Bacteria None seen /hpf (NONE) 11/14/24 16:41 Hyaline Casts 9.51 /lpf 11/14/24 16:41 Vitals Last Vital Signs Temp 98.1 F 11/21/24 15:22 Pulse 94 11/21/24 15:22 Resp 18 11/21/24 15:22 BP 110/50 11/21/24 15:22 Pulse Ox 97 11/21/24 15:22 O2 Del Method Room Air 11/21/24 11:14 O2 Flow Rate 2 11/16/24 08:00 FiO2 21 11/17/24 23:47 Discharge Plan Discharge Patient Disposition: Home Condition: Stable Prescriptions: New meclizine 25 mg Tablet 25 mg PO Q8H PRN (Reason: dizziness) 30 Days Qty: 30 0RF pantoprazole [Protonix] 40 mg tablet,delayed release (DR/EC) 40 mg PO BID 14 Days Qty: 28 0RF metoclopramide HCl [Reglan] 5 mg tablet 5 mg PO Q8H PRN (Reason: nausea and vomiting) 5 Days Qty: 15 0RF ondansetron 4 mg tablet,disintegrating 4 mg PO Q8H PRN (Reason: nausea and vomiting) 4 Days Qty: 14 0RF midodrine 5 mg Tablet 10 mg PO TID 30 Days Qty: 180 0RF multivitamin with folic acid [Thera] 400 mcg Tablet 1 tab PO DAILY 30 Days Qty: 30 0RF pantoprazole [Protonix] 40 mg tablet,delayed release (DR/EC) 40 mg PO DAILY 28 Days Qty: 30 0RF thiamine HCl (vitamin B1) 100 mg capsule 100 mg PO DAILY 30 Days Qty: 30 6RF Continued fluticasone propionate 50 mcg/actuation spray,suspension 50 mcg intranasal DAILY PRN (Reason: Chronic Rinitis) (DME) cpap auto titrating machine See Rx Instructions .Route .MEDSUPPLY Qty: 1 0RF Rx Instructions: as directed cpap machine auto titration 5-20 with supplies Eliquis 5 mg tablet 5 mg PO BID Qty: 44 0RF Rx Instructions: Take 2 tabs twice daily for the first 7 days followed by 1 tab twice a day olanzapine 5 mg tablet 5 - 10 mg PO DAILY PRN (Reason: Nausea) Rx Instructions: for up 4 days duloxetine 20 mg capsule,delayed release(DR/EC) 20 mg PO DAILY Discontinued amoxicillin-pot clavulanate 400-57 mg/5 mL suspension for reconstitution 10 ml PO BID Qty: 200 0RF Discharge Orders: Discharge Order (Routine); Ordered 11/21/24 Ordered By: Zena Puckett Other Ambulatory Orders: DME: Walker (Order) Location: None Selected Ordered By: Zena Puckett Referrals: Julissa Patton FNP [Primary Care Provider, Nurse Practitioner] - 11/24/24 1:30 pm Ava Muse MD [Physician, Neurology] - 2 weeks Referral Note: hospital discharge follow up for Wernicke's Patient Instructions: Metoclopramide (By mouth), Prednisone (By mouth), Meclizine (By mouth), Ondansetron (By mouth), Pantoprazole (By mouth), Hypokalemia (GEN), Encephalopathy (GEN) Discharge Attestations Time Spent in Discharge Care*: greater than 30 min Quality Metrics Clinical Quality Measures [ No reported AMI, CVA or VTE this stay] Coding Level of Care Code Acute Code for Chg Fwd Diagnoses Benign essential HTN I10 Intractable nausea and vomiting R11.2 Hypokalemia E87.6 Acute dehydration E86.0 Squamous cell carcinoma of left tonsil C09.9
[2024-11-23 10:30] LABS: Vitamin B1 (Thiamine),Blood 32 nmol/L (78-185)
[2024-11-24 23:19] LABS: Ganglioside GQ1b Antibody IgG <1:100 titer
== END 2024-11-21 14:45 | disposition home or self-care (01) | DRG 640 ==
LOC: ER 21:19 → MEDSURG 22:18
PROVIDERS: Emergency Medicine; Specialist; Admitting Provider Internal Medicine; Emergency Provider Student in an Organized Health Care Education/Training Program; PCP Nurse Practitioner; Visit Provider Student in an Organized Health Care Education/Training Program
DX: E51.2 Wernicke's encephalopathy (principal); I26.99 Other pulmonary embolism without acute cor pulmonale; J96.01 Acute respiratory failure with hypoxia; E46 Unspecified protein-calorie malnutrition; I10 Essential (primary) hypertension; E87.6 Hypokalemia; E86.0 Dehydration; Z85.89 Personal history of malignant neoplasm of other organs and systems; G47.33 Obstructive sleep apnea (adult) (pediatric); F32.A Depression, unspecified; R00.1 Bradycardia, unspecified; S00.11XA Contusion of right eyelid and periocular area, initial encounter; W19.XXXA Unspecified fall, initial encounter; Y92.239 Unspecified place in hospital as the place of occurrence of the external cause; Z68.28 Body mass index [BMI] 28.0-28.9, adult; Z92.3 Personal history of irradiation; Z92.21 Personal history of antineoplastic chemotherapy; Z79.01 Long term (current) use of anticoagulants
CPT/HCPCS: 36415; 36416; 36591; 70450; 70551; 71045; 74176; 80053; 81001; 82607; 82746; 82962; 83520; 83605; 83690; 83735; 84100; 84425; 85014; 85018; 85025; 85610; 85730; 87040; 92523; 92610; 93005; 94640; 94660; 94664; 94762; 96361; 96372; 96374; 96375; 97110; 97112; 97116; 97161; 97530; 99285; J0780; J1200; J1650; J2470; J2765; J2919; J3411; J3480; J7030; J7040; J7050; J7120; J7613; J8597; J9999; P9046

== ENCOUNTER 2024-12-06 10:47 | Outpatient (CLI) | payer OTHER, SELFPAY | END 2024-12-06 10:48 | LOC: RAD 12-10 06:57 | PROVIDERS: PCP Nurse Practitioner; Visit Provider Internal Medicine Cardiovascular Disease | DX: I48.91 Unspecified atrial fibrillation (principal); Z79.01 Long term (current) use of anticoagulants; I10 Essential (primary) hypertension; R00.1 Bradycardia, unspecified; R94.31 Abnormal electrocardiogram [ECG] [EKG]; R06.09 Other forms of dyspnea | CPT/HCPCS: 99215 ==

== ENCOUNTER 2024-12-14 09:30 | Oncology outpatient (recurring) (ONCR) | payer OTHER, SELFPAY ==
[2024-11-24] VITALS (10 sets, daily range): BP systolic 110–125; BP diastolic 66–83; PULSE 52–88; RESP 17–18; TEMP 36.4–36.8; O2SAT 95–98
[2024-11-24 09:33] LABS: Basophils % 0.2 %; Eosinophils % 0.3 %; Hematocrit 26.7 % (37-53); Lymphocytes # 0.3 10^3/uL (0.8-4.8); Lymphocytes % 5.4 %; Mean Corpuscular HGB Conc 32.2 g/dL (30-55); Mean Corpuscular Hemoglobin 30.8 pg (27-33); Mean Corpuscular Volume 95.7 fl (82-101); Mean Platelet Volume 10.5 fL (7.4-10.4); Monocytes # 0.3 10^3/uL (0.2-0.9); Monocytes % 5.1 %; Neutrophils # 5.51 10^3/uL (1.8-7.7); Neutrophils % 88.4 %; Nucleated Red Blood Cells % 0 %; Platelet Count 240 10^3/cmm (157-399); Red Blood Count 2.79 10^6/uL (3.85-5.65); Red Cell Distribution Width 16.8 % (12.1-15.1); White Blood Count 6.24 10^3/uL (3.29-11.43)
[2024-11-24 09:50] LABS: Alanine Aminotransferase 34 U/L (0-41); Albumin Level 3.5 g/dL (3.5-5.2); Alkaline Phosphatase 74 U/L (40-130); Anion Gap 15.1 (5-19); Aspartate Amino Transferase 14 U/L (0-40); Blood Urea Nitrogen 33 mg/dL (6-20); Carbon Dioxide 23 mmol/L (22-29); Chloride 108 mmol/L (98-107); Globulin 2.2 g/dL (1.3-4.6); Glomerular Filtration Rate 48.6 mL/min (90-130); Glucose 120 mg/dL (65-115); Osmolality Calculated 302 mOsm/kg (285-295); Potassium 4.1 mmol/L (3.5-5.1); Sodium 142 mmol/L (136-145); Total Bilirubin 0.3 mg/dL (0.15-1.2); Total Protein 5.7 g/dL (6.6-8.7)
[2024-11-24] MEDS: sodium chloride 0.9% 250 mL Bag IV (11:38)
[2024-11-24] MEDS: acetaminophen 325 mg Tablet 650 MG PO (11:39)
[2024-11-24] MEDS: diphenhydrAMINE 25 mg Capsule PO (11:39)
[2024-11-24] MEDS: FUROsemide 10 mg/mL SDV 2mL 20 MG IVP (13:58)
--- NOTE | 2024-12-13 08:30 | USCV_ITS ---
Mariano Lazaro Age: 54 Gender: M : 1970 Exam Date: 12/13/2024 08:27 Ordering Phys: Nida Varner APRN Technologist: DARRYL Exam Location: [facility] [place] Indication: Cardiomegaly on XR BP: 120 / 80 HR: Rhythm: Sinus Technical Quality: Adequate MEASUREMENTS (Male / Female) Normal Values 2D ECHO LV Diastolic Diameter PLAX 6.4 cm 4.2 - 5.9 / 3.9 - 5.3 cm IVS Diastolic Thickness 0.9 cm 0.6 - 1.0 / 0.6 - 0.9 cm IVS Systolic Thickness 1.8 cm LVPW Diastolic Thickness 1.3 cm 0.6 - 1.0 / 0.6 - 0.9 cm LVPW Systolic Thickness 1.7 cm LVOT Diameter 2.0 cm LV Ejection Fraction 2D Teich 64.5 % LV Ejection Fraction MOD 4C 65.4 % LV Ejection Fraction MOD 2C 69.0 % LV Ejection Fraction 2C AL 68.2 % LA Diameter 3.6 cm RA Systolic Volume 4C AL 74.1 ml RA Systolic Volume 4C MOD 67.0 ml LA Sys Volume AL 85.9 cm cubed LA Sys Volume Index AL 35.5 cm cubed/m squared Aorta at Sinotubular Diameter 3.3 cm M-MODE LA Ao Ratio MM 0.9 AV Cusp Separation MM 1.8 cm FINDINGS Left Ventricle Right Ventricle Right Atrium Left Atrium Mitral Valve Aortic Valve Tricuspid Valve Pulmonic Valve Pericardium Aorta IVC CONCLUSIONS Limited echocardiogram performed to assess LV systolic function. LV systolic function is normal with EF of 55-60%. No regional wall motion abnormalities are seen. Jonathan Renee MD (Electronically Signed) Final Date: 29 December 2024 09:29 S
[2024-12-14 09:55] LABS: Basophils % 0.9 %; Eosinophils # 0.1 10^3/uL (0.0-0.8); Eosinophils % 2.9 %; Hematocrit 29.8 % (37-53); Lymphocytes # 0.5 10^3/uL (0.8-4.8); Lymphocytes % 14.2 %; Mean Corpuscular HGB Conc 31.9 g/dL (30-55); Mean Corpuscular Hemoglobin 31.4 pg (27-33); Mean Corpuscular Volume 98.3 fl (82-101); Mean Platelet Volume 9.2 fL (7.4-10.4); Monocytes # 0.4 10^3/uL (0.2-0.9); Monocytes % 10.4 %; Neutrophils # 2.46 10^3/uL (1.8-7.7); Nucleated Red Blood Cells % 0 %; Platelet Count 232 10^3/cmm (157-399); Red Blood Count 3.03 10^6/uL (3.85-5.65); Red Cell Distribution Width 14.9 % (12.1-15.1); White Blood Count 3.46 10^3/uL (3.29-11.43)
[2024-12-14 10:15] LABS: Alanine Aminotransferase 10 U/L (0-41); Albumin Level 3.5 g/dL (3.5-5.2); Alkaline Phosphatase 68 U/L (40-130); Anion Gap 15.6 (5-19); Aspartate Amino Transferase 11 U/L (0-40); Blood Urea Nitrogen 18 mg/dL (6-20); Calcium 8.6 mg/dL (8.5-10.5); Carbon Dioxide 24 mmol/L (22-29); Chloride 104 mmol/L (98-107); Ferritin 711 ng/mL (30-400); Globulin 2.3 g/dL (1.3-4.6); Glomerular Filtration Rate 45.1 mL/min (90-130); Glucose 109 mg/dL (65-115); Iron 82 ug/dL (59-158); Lactate Dehydrogenase 149 U/L (135-225); Osmolality Calculated 292 mOsm/kg (285-295); Percent Saturation 41.6 % (20-50); Potassium 3.6 mmol/L (3.5-5.1); Sodium 140 mmol/L (136-145); Total Bilirubin 0.4 mg/dL (0.15-1.2); Total Iron Binding Capacity 197 mcg/dl; Total Protein 5.8 g/dL (6.6-8.7); Unsaturated Iron Binding 115 ug/dL (112-347)
[2024-12-14 10:30] LABS: Vitamin B12 652 pg/mL (232-1245)
[2024-12-18 15:15] LABS: Vitamin B1 (Thiamine),Blood 199 nmol/L (78-185)
== END 2024-12-20 23:59 | disposition home or self-care (01) ==
PROVIDERS: Internal Medicine; Nurse Practitioner; PCP Nurse Practitioner; Visit Provider Nurse Practitioner Family
DX: Z53.9 Procedure and treatment not carried out, unspecified reason; C09.8 Malignant neoplasm of overlapping sites of tonsil; R79.89 Other specified abnormal findings of blood chemistry; E51.2 Wernicke's encephalopathy; Z79.899 Other long term (current) drug therapy
CPT/HCPCS: 36430; 36591; 80053; 82607; 82728; 82746; 83010; 83540; 83550; 83615; 84425; 85025; 86850; 86900; 86920; 93308; 96523; 99214; J1938; J7050; J9999; P9016

== ENCOUNTER 2024-12-17 12:18 | Outpatient (CLI) | payer OTHER, SELFPAY ==
--- NOTE | 2024-12-17 12:23 | PETR_ITS ---
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 Then, PET images were obtained. Attenuation corrected images were constructed using the CT scan. Fused images of PET and CT were reviewed. The standardized uptake values (SUV) reported below are maximum values within a region of interest, expressed in gm/ml. Exam includes orbital meatal line to mid-thigh. SUV normalization method: BodyWeight Radiopharmaceutical: 11.5 mCi F-18 FDG (Fluorodeoxyglucose), IV. Time of imaging post radiopharmaceutical administration: 45 minutes Injection site: right ac COMPARISON: 1. CT neck w con* [id number] 10/28/2024 3:10 PM 2. PT PET skull to thigh INIT [id number] 07/16/2024 9:[address] abdomen pelvis wo con [id number] 11/14/2024 4:[address] angio chest PE protcl [id number] 11/08/2024 5:43 PM FINDINGS: Tubes, catheters and devices: Right chest port terminates in the right atrium. Brain: Visualized brain has normal physiologic uptake. Pharynx: No abnormal uptake. Resolved FDG avid malignancy. Larynx: No abnormal uptake. Lungs, pleura and trachea: No abnormal uptake. Heart: Normal physiologic uptake. Mediastinal space: No abnormal uptake. Liver: No abnormal uptake. Gallbladder and biliary ducts: No abnormal uptake. Pancreas: No abnormal uptake. Spleen: No abnormal uptake. Adrenal glands: No abnormal uptake. Kidneys and ureters: Normal physiologic uptake. Stomach and bowel: No abnormal uptake. Moderate rectal stool burden. Vasculature: No abnormal uptake. Mild systemic atherosclerotic calcification without aortic aneurysm. Lymph nodes: Largely resolved lymphadenopathy with residual left level 2 lymph node measuring 8 mm in the short axis on axial image 82 showing SUV max 3.2. Skeleton: No abnormal uptake in the visualized axial and appendicular skeleton. Degenerative change along the axial skeletal system and shoulders. Soft tissues: No abnormal uptake in the visualized head, neck, chest, abdomen, pelvis, and extremities. Small fat containing periumbilical hernia. METRICS: Mediastinal blood pool: SUV mean 1.8 Liver uptake: SUV mean 2.5 PET/PET skull to thigh INIT [id number] IMPRESSION: Excellent partial treatment response with resolved FDG avid oropharyngeal malignancy and largely resolved left cervical lymphadenopathy with single residual mildly FDG avid level 2 lymph node.
== END 2024-12-17 12:19 | disposition home or self-care (01) ==
LOC: RAD 12:19
PROVIDERS: PCP Nurse Practitioner; Visit Provider Specialist
DX: Z85.818 Personal history of malignant neoplasm of other sites of lip, oral cavity, and pharynx (principal); R59.0 Localized enlarged lymph nodes; K42.9 Umbilical hernia without obstruction or gangrene; Z45.2 Encounter for adjustment and management of vascular access device; Z96.89 Presence of other specified functional implants
CPT/HCPCS: 78815; A9552

== ENCOUNTER → 2025-01-11 13:01 | Outpatient (BNVA) | payer OTHER, SELFPAY | PROVIDERS: PCP Nurse Practitioner; Visit Provider Specialist | DX: E51.2 Wernicke's encephalopathy (principal); G47.30 Sleep apnea, unspecified; C09.9 Malignant neoplasm of tonsil, unspecified | CPT/HCPCS: 99205 ==

== ENCOUNTER 2025-01-19 14:16 | Oncology outpatient (recurring) (ONCR) | payer OTHER, SELFPAY ==
--- NOTE | 2025-01-19 14:30 | MR_ITS ---
WS: [id number] MRI BRAIN WITH AND WITHOUT CONTRAST HISTORY: E51.2 - Wernicke's encephalopathy COMPARISON: 11/17/2024 TECHNIQUE: Multiplanar imaging performed through the brain with MultiHance 20 ml's IV. No acute infarcts are seen. Choi-white matter differentiation is well preserved. Minimal small vessel changes. Previously described increased T2 and FLAIR signal involving the periaqueductal choi matter extending into the mamillary bodies and medial thalami has essentially resolved. Questionable and very subtle areas of possible increased T2 signal remaining along the medial thalami and third ventricle. Marked improvement. Ventricles and extra-axial spaces are normal. Clivus and pituitary gland are normal. Visualized posterior fossa and brainstem are also normal. Normal dorsal brainstem. Postcontrast images are negative for masses or vascular malformations. Dural venous sinuses are normal. Paranasal sinuses: Well aerated with no significant disease. Mastoid air cells: Normal. Calvarium and scalp: Normal. MR/MR head wo/w con [id number] IMPRESSION: 1. Marked improvement in the signal abnormality within the periaqueductal choi and extending into the mammary bodies and medial thalami. There is very minima l thin increased signal along the medial thalami and third ventricle. 2. No infarct. No areas of abnormal enhancement. 3. No acute findings.
== END 2025-01-20 23:59 | disposition home or self-care (01) ==
PROVIDERS: PCP Nurse Practitioner; Visit Provider Nurse Practitioner Family
DX: E51.2 Wernicke's encephalopathy (principal); R93.0 Abnormal findings on diagnostic imaging of skull and head, not elsewhere classified
CPT/HCPCS: 70553

== ENCOUNTER 2025-02-09 10:44 | Oncology outpatient (recurring) (ONCR) | payer OTHER, SELFPAY ==
[2025-02-09 11:32] LABS: Hematocrit 34.3 % (37-53); Hemoglobin 11.00 g/dL (11.27-16.99); Mean Corpuscular HGB Conc 32.1 g/dL (30-55); Mean Corpuscular Hemoglobin 30.5 pg (27-33); Mean Corpuscular Volume 95.0 fl (82-101); Nucleated Red Blood Cells % 0 %; Platelet Count 190 10^3/cmm (157-399); Red Blood Count 3.61 10^6/uL (3.85-5.65); White Blood Count 3.57 10^3/uL (3.29-11.43)
[2025-02-09 11:50] LABS: Alanine Aminotransferase 10 U/L (0-41); Albumin Level 3.9 g/dL (3.5-5.2); Alkaline Phosphatase 60 U/L (40-130); Anion Gap 14.7 (5-19); Aspartate Amino Transferase 11 U/L (0-40); Blood Urea Nitrogen 28 mg/dL (6-20); Calcium 9.0 mg/dL (8.5-10.5); Carbon Dioxide 26 mmol/L (22-29); Chloride 106 mmol/L (98-107); Creatinine Clr Calc Pharmacy 53.8716; Globulin 2.2 g/dL (1.3-4.6); Glucose 118 mg/dL (65-115); Osmolality Calculated 303 mOsm/kg (285-295); Potassium 3.7 mmol/L (3.5-5.1); Sodium 143 mmol/L (136-145); Total Protein 6.1 g/dL (6.6-8.7)
== END 2025-02-20 23:59 | disposition home or self-care (01) ==
PROVIDERS: Internal Medicine Medical Oncology; PCP Nurse Practitioner; Visit Provider Nurse Practitioner Family
DX: Z08 Encounter for follow-up examination after completed treatment for malignant neoplasm (principal); Z85.89 Personal history of malignant neoplasm of other organs and systems; E51.2 Wernicke's encephalopathy; D64.9 Anemia, unspecified; Z92.3 Personal history of irradiation; Z92.21 Personal history of antineoplastic chemotherapy; Z87.891 Personal history of nicotine dependence
CPT/HCPCS: 36591; 80053; 85025; 99213

== ENCOUNTER 2025-03-18 12:30 | Oncology outpatient (recurring) (ONCR) | payer OTHER, SELFPAY ==
--- NOTE | 2025-03-18 16:44 | PETR_ITS ---
PROCEDURE INFORMATION: Exam: PET/CT Skull Base to Mid-thigh Exam date and time: 03/18/2025 1:18 PM Age: 54 years old Clinical indication: Condition or disease; Primary cancer: Squamous cell carcinoma; Malignant neoplasm of tonsil; Additional info: Squamous cell carcinoma, Dr. Ibarra would like this done on 04/01/25 LABS AND CLINICAL REPORTS: Glucose: 120 mg/dl Treatment strategy for malignancy (PET staging): Restaging (PS) TECHNIQUE: Imaging protocol: Following at least four-hour fasting and following the injection of radiopharmaceutical, low dose CT images were obtained. Then, PET images were obtained. Attenuation corrected images were constructed using the CT scan. Fused images of PET and CT were reviewed. The standardized uptake values (SUV) reported below are maximum values within a region of interest, expressed in gm/ml. Exam includes orbital meatal line to mid-thigh. SUV normalization method: BodyWeight Radiopharmaceutical: 11.6 mCi F-18 FDG (Fluorodeoxyglucose), IV. Time of imaging post radiopharmaceutical administration: 53 minutes Injection site: RAC COMPARISON: 1. PT PET skull to thigh INIT [id number] 12/17/2024 1:[address] abdomen pelvis wo con [id number] 11/14/2024 4:[address] angio chest PE protcl [id number] 11/08/2024 5:43 PM FINDINGS: Tubes, catheters and devices: Right chest port terminates in the right atrium. Brain: Visualized brain has normal physiologic uptake. Pharynx: No abnormal uptake. Larynx: No abnormal uptake. Lungs, pleura and trachea: No abnormal uptake. Heart: Normal physiologic uptake. Mediastinal space: No abnormal uptake. Liver: No abnormal uptake. Gallbladder and biliary ducts: No abnormal uptake. Pancreas: No abnormal uptake. Spleen: No abnormal uptake. Adrenal glands: No abnormal uptake. Kidneys and ureters: Normal physiologic uptake. Stomach and bowel: No abnormal uptake. Vasculature: No abnormal uptake. Mild systemic atherosclerotic calcification without aortic aneurysm. Lymph nodes: No abnormal uptake. No lymphadenopathy in the head, neck, chest, abdomen, pelvis, and extremities. Skeleton: No abnormal uptake in the visualized axial and appendicular skeleton. Degenerative change along the axial skeletal system and shoulders. Soft tissues: No suspicious abnormal uptake in the visualized head, neck, chest, abdomen, pelvis, and extremities. Low-level asymmetric left longus colli uptake without underlying CT abnormality is likely benign. Small fat containing periumbilical hernia. METRICS: Mediastinal blood pool: SUV mean 2.0 Liver uptake: SUV mean 2.6 PET/PET skull to thigh SUBS [id number] IMPRESSION: Complete response without evidence of residual or metastatic disease.
== END 2025-03-22 23:59 | disposition home or self-care (01) ==
LOC: ONCMED 03-21 09:05
PROVIDERS: PCP Nurse Practitioner; Visit Provider Nurse Practitioner Family
DX: Z53.9 Procedure and treatment not carried out, unspecified reason; C09.9 Malignant neoplasm of tonsil, unspecified
CPT/HCPCS: 78815; 96523; A9552

== ENCOUNTER 2025-04-06 14:14 | Oncology outpatient (recurring) (ONCR) | payer OTHER, SELFPAY ==
[2025-04-06 10:52] LABS: Hematocrit 32.7 % (37-53); Hemoglobin 10.90 g/dL (11.27-16.99); Mean Corpuscular HGB Conc 33.3 g/dL (30-55); Mean Corpuscular Hemoglobin 29.9 pg (27-33); Mean Corpuscular Volume 89.6 fl (82-101); Nucleated Red Blood Cells % 0 %; Platelet Count 151 10^3/cmm (157-399); Red Blood Count 3.65 10^6/uL (3.85-5.65); White Blood Count 3.58 10^3/uL (3.29-11.43)
[2025-04-06 11:14] LABS: Alanine Aminotransferase 9 U/L (0-41); Albumin Level 3.9 g/dL (3.5-5.2); Alkaline Phosphatase 71 U/L (40-130); Anion Gap 14.0 (5-19); Aspartate Amino Transferase 14 U/L (0-40); Blood Urea Nitrogen 29 mg/dL (6-20); Calcium 8.8 mg/dL (8.5-10.5); Carbon Dioxide 24 mmol/L (22-29); Chloride 105 mmol/L (98-107); Ferritin 408 ng/mL (30-400); Globulin 2.4 g/dL (1.3-4.6); Glucose 93 mg/dL (65-115); Iron 97 ug/dL (59-158); Osmolality Calculated 294 mOsm/kg (285-295); Potassium 4.0 mmol/L (3.5-5.1); Sodium 139 mmol/L (136-145); Total Iron Binding Capacity 209 mcg/dl; Total Protein 6.3 g/dL (6.6-8.7); Unsaturated Iron Binding 112 ug/dL (112-347)
[2025-04-06 11:16] LABS: Creatinine Clr Calc Pharmacy 49.1691
[2025-04-06 11:29] LABS: Vitamin B12 638 pg/mL (232-1245)
--- NOTE | 2025-04-06 14:19 | US_ITS ---
WS: [id number] RENAL ULTRASOUND HISTORY: ACUTE NONTRAUMATIC KIDNEY INJURY COMPARISON: None available. TECHNIQUE: 2-D and color Doppler imaging of the kidney submitted. Right kidney: 10.2 cm x 5.8 cm x 5.6 cm. Cortex: 1.1 cm Normal echogenicity with no hydronephrosis or mass. Left kidney: 10.5 cm x 6.0 cm x 6.1 cm. Cortex: 1.1 cm Normal echogenicity with no hydronephrosis or mass. Aorta: Mild atherosclerosis. Urinary Bladder: Minimally distended bladder. Prostate gland is mildly heterogeneous but not enlarged significantly. Prostate measures 3.5 x 2.5 x 3.5 cm. US/US renal BI* [id number] IMPRESSION: 1. Normal size kidneys. 2. No hydronephrosis or solid mass identified.
== END 2025-04-22 23:59 | disposition home or self-care (01) ==
PROVIDERS: Internal Medicine; PCP Nurse Practitioner; Visit Provider Nurse Practitioner Family
DX: Z53.9 Procedure and treatment not carried out, unspecified reason; Z08 Encounter for follow-up examination after completed treatment for malignant neoplasm; Z85.818 Personal history of malignant neoplasm of other sites of lip, oral cavity, and pharynx; R79.89 Other specified abnormal findings of blood chemistry; D64.9 Anemia, unspecified; E51.2 Wernicke's encephalopathy; Z92.21 Personal history of antineoplastic chemotherapy; Z92.3 Personal history of irradiation; Z79.899 Other long term (current) drug therapy; Z95.828 Presence of other vascular implants and grafts; Z87.891 Personal history of nicotine dependence
CPT/HCPCS: 36591; 76770; 80053; 82607; 82728; 82746; 83010; 83540; 83550; 83615; 85025; 99213

== ENCOUNTER → 2025-04-13 11:43 | Outpatient (BNVA) | payer OTHER, SELFPAY | PROVIDERS: PCP Nurse Practitioner; Visit Provider Specialist | DX: E51.2 Wernicke's encephalopathy (principal); G47.30 Sleep apnea, unspecified; C09.9 Malignant neoplasm of tonsil, unspecified | CPT/HCPCS: 99213 ==

== ENCOUNTER 2025-05-24 10:58 | Oncology outpatient (recurring) (ONCR) | payer OTHER, SELFPAY | END 2025-06-22 23:59 | disposition home or self-care (01) | LOC: ONCMED 10:58 | PROVIDERS: PCP Nurse Practitioner; Visit Provider Nurse Practitioner Family | DX: Z08 Encounter for follow-up examination after completed treatment for malignant neoplasm (principal); Z85.818 Personal history of malignant neoplasm of other sites of lip, oral cavity, and pharynx; R79.89 Other specified abnormal findings of blood chemistry; D64.9 Anemia, unspecified; E51.2 Wernicke's encephalopathy; Z92.21 Personal history of antineoplastic chemotherapy; Z92.3 Personal history of irradiation; Z79.899 Other long term (current) drug therapy; Z95.828 Presence of other vascular implants and grafts; Z87.891 Personal history of nicotine dependence; Z53.9 Procedure and treatment not carried out, unspecified reason | CPT/HCPCS: 96523 ==